=== PATIENT | female | born 1980 | race Caucasian/White ===

== ENCOUNTER 2020-08-16 10:38 | Outpatient (REF) | payer OTHER, SELFPAY ==
[2020-08-16 11:00] LABS: COVID-19 Test Negative (Negative)
== END 2020-08-16 10:39 | disposition home or self-care (01) ==
LOC: HO.EMPCOV 10:38
PROVIDERS: Visit Provider Internal Medicine
DX: Z20.828 Contact with and (suspected) exposure to other viral communicable diseases (principal)
CPT/HCPCS: 87635; C9803

== ENCOUNTER 2020-09-13 09:02 | Outpatient (REF) | payer OTHER, SELFPAY ==
[2020-09-13 09:24] LABS: COVID-19 Test Negative (Negative); IDNOW Serial# 55D5AD1C
== END 2020-09-13 09:03 | disposition home or self-care (01) ==
LOC: HO.EMPCOV 09:02
PROVIDERS: Visit Provider Internal Medicine
DX: Z20.828 Contact with and (suspected) exposure to other viral communicable diseases (principal)
CPT/HCPCS: 36415; 87635; C9803

== ENCOUNTER 2021-03-27 16:04 | Outpatient (REF) | payer OTHER, SELFPAY ==
[2021-03-27 16:39] LABS: Estimated Average Glucose 232 mg/dL; Hemoglobin A1c % 9.7 %
== END 2021-03-27 16:05 | disposition home or self-care (01) ==
LOC: HO.LAB 16:04
PROVIDERS: PCP Pediatrics; Visit Provider Pediatrics
DX: E11.9 Type 2 diabetes mellitus without complications (principal)
CPT/HCPCS: 36415; 83036

== ENCOUNTER 2021-05-30 08:20 | Outpatient (REF) | payer OTHER, SELFPAY ==
--- NOTE | ~2021-05-30 | XR_ITS ---
EXAMINATION: XR KNEE, RIGHT XR KNEE BILATERAL,STANDING CLINICAL INFORMATION: Pain COMPARISON: None TECHNIQUE: Single view of the bilateral standing knees, 2 views of the right knee FINDINGS: No acute visible fracture or dislocation. Narrowing of the lateral patellofemoral compartment. Small periarticular osteophytes along the superior inferior margin of the patella. Mild spurring of the bilateral tibial spines. Joint spaces and alignment are otherwise maintained. No large knee joint effusion. Soft tissues are unremarkable. XR/XR knee standing BI IMPRESSION: 1. No acute visible fracture or dislocation. 2. Mild degenerative changes of the right knee and spurring of the left tibial spine.
--- NOTE | ~2021-05-30 | XR_ITS ---
EXAMINATION: XR KNEE, RIGHT XR KNEE BILATERAL,STANDING CLINICAL INFORMATION: Pain COMPARISON: None TECHNIQUE: Single view of the bilateral standing knees, 2 views of the right knee FINDINGS: No acute visible fracture or dislocation. Narrowing of the lateral patellofemoral compartment. Small periarticular osteophytes along the superior inferior margin of the patella. Mild spurring of the bilateral tibial spines. Joint spaces and alignment are otherwise maintained. No large knee joint effusion. Soft tissues are unremarkable. XR/XR knee RT 2V IMPRESSION: 1. No acute visible fracture or dislocation. 2. Mild degenerative changes of the right knee and spurring of the left tibial spine.
== END 2021-05-30 08:21 | disposition home or self-care (01) ==
LOC: HO.HOSX 08:20
PROVIDERS: Visit Provider Orthopaedic Surgery
DX: M25.561 Pain in right knee (principal)
CPT/HCPCS: 73560; 73565

== ENCOUNTER 2021-07-05 15:00 | Outpatient (RCR) | payer OTHER, SELFPAY ==
--- NOTE | 2021-06-14 16:20 | MHC.PT.EP ---
[facility] [place] Office [place] Office [place] Office [address] Lindy Amezquita [address] [phone] F: [phone] F: [phone] F: [phone] F: [phone] Physical Therapy Plan of Care Date of Evaluation: Date of Surgery: NA Diagnosis: PAIN IN R KNEE Assessment: Pt IS 40 YO F REFERRED TO PT FROM DR KONG WITH R KNEE PAIN OF 5 WK DURATION OF INSIDIOUS ONSET (EXACERBATED WITH FALL ON 06/03). Pt PRESENTS WITH GOOD R KNEE ROM AND LE STRENGTH PER MMT BUT TTP QUAD TENDON WITH SLIGHT LAT TILTED PAT. 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 PAIN WITH PROLONGED SIT AND STAIRS AND THE PAIN SOMETIMES AFFECTS SLEEP. SHOULD BENEFIT FROM PT TO ADDRESS THESE ISSUES. Frequency and Duration: The patient will be seen 2X/WK X 4 WKS Short Term Goals: 1. INCREASED AWARENESS KNEE CARE 2. I TAPING FOR R KNEE 3. IMPROVED SLEEP Medical Technologist Microbiology Goals: 1. DECREASED R KNEE PAIN AT LEAST 50 % WITH ADLS 2. I HEP WITH DC EX PLAN 3. IMPROVED LEFI Treatment Plan: Modalities to reduce pain, spasms and effusion. Manual therapy to restore motion and function. Therapeutic exercise to improve strength and flexibility. Neuromuscular re-education for posture and balance. Therapeutic activities to return to functional activities of daily living. Electronically signed by: SANTOS LLANOS PT Please sign and return to therapist. Thank you for your referral.
--- NOTE | 2021-07-05 15:58 | MHC.PT.DC ---
[facility] [place] Office [place] Office [place] Office [address] Lindy Amezquita [address] [phone] F: [phone] F: [phone] F: [phone] F: [phone] Physical Therapy Discharge Report Diagnosis: PAIN IN R KNEE Date of Surgery: NA Date of Evaluation: 06/14/21 Date of Discharge: Treatments to Date: 6 Cancellations to Date: No Shows to Date: Discharge Status: Discharge Summary: Despite having headache pt feeling good with all exercises reporting no pain and only fatigue. Great carry over with exercises secondary to great compliance with HEP. Min to no cues required for form today. Pt performed all exercises with tape today. Discussed plan to d/c next session and pt in agreement with this plan. Electronically signed by: Please sign and return to therapist. Thank you for your referral.
--- NOTE | 2021-07-05 16:01 | MHC.PT.DC ---
[facility] [place] Office [place] Office [place] Office [address] Lindy Amezquita [address] [phone] F: [phone] F: [phone] F: [phone] F: [phone] Physical Therapy Discharge Report Diagnosis: PAIN IN R KNEE Date of Surgery: NA Date of Evaluation: 06/14/21 Date of Discharge: Treatments to Date: 7 Cancellations to Date: No Shows to Date: Discharge Status: Discharge Summary: Pt has made good improvements since beginning PT. She continues to have some low level residual pain at times however reports she is happy with her progress at this point and feels she is ready to continue with HEP at home. She has met all goals at this point and is independent in taping techniques to assist when she has pain. At this time max benefits of PT have been provided and skilled PT is no longer indicated. Pt is in agreement with d/c today. Electronically signed by: Please sign and return to therapist. Thank you for your referral.
== END 2021-07-05 15:59 | disposition home or self-care (01) ==
LOC: HO.PT 15:00
PROVIDERS: Visit Provider Orthopaedic Surgery
DX: M25.561 Pain in right knee (principal)
CPT/HCPCS: 97110; 97140; 97161; 97530

== ENCOUNTER 2021-08-06 07:59 | Outpatient (REF) | payer OTHER, SELFPAY ==
[2021-08-06 08:11] LABS: MANUAL DIFF FLAG NO
[2021-08-06 08:35] LABS: Basophils Absolute Auto 0.1 X10*3/uL (0.0-0.2); Basophils Percent Auto 1.2 % (0-2); Eosinophils Absolute Auto 0.3 X10*3/uL (0.0-0.4); Eosinophils Percent Auto 3.3 % (0-4); Hematocrit 42.5 % (37.0-47.0); Hemoglobin 13.3 g/dl (12.0-16.0); Imm Gran Abs Auto 0.04 X10*3/uL (0.00-0.03); Imm Gran Pct Auto 0.5 % (0.0-0.4); Lymphocytes Absolute Auto 3.1 X10*3/uL (1.2-4.9); Lymphocytes Percent Auto 34.8 % (20-40); Mean Corpuscular HGB Conc 31.3 g/dl (31.0-35.0); Mean Corpuscular Hemoglobin 27.1 pg (27.0-33.0); Mean Corpuscular Volume 86.6 fL (80.0-98.0); Mean Platelet Volume 9.7 fL (9.4-12.3); Monocytes Absolute Auto 0.7 X10*3/uL (0.1-1.2); Monocytes Percent Auto 8.1 % (2-11); Neutrophils Absolute Auto 4.6 x10*3/uL (2.0-8.3); Neutrophils Percent Auto 52.1 % (45-73); Platelet Count 396 X10*3/uL (160-400); Red Blood Count 4.91 X10*6/uL (4.20-5.50); Red Cell Distribution Width 14.5 % (11.0-16.0); White Blood Count 8.8 X10*3/uL (4.8-10.8)
[2021-08-06 09:08] LABS: Alanine Aminotransferase 17 U/L (0-31); Albumin Level 4.2 g/dL (3.5-5.0); Alkaline Phosphatase 86 U/L (39-117); Anion Gap 14 (12-20); Aspartate Amino Transferase 15 U/L (5-31); Bilirubin Total 0.3 mg/dL (0.0-1.0); Blood Urea Nitrogen 15 mg/dL (9-16); Calcium 9.4 mg/dL (8.4-10.2); Carbon Dioxide 24 mmol/L (22-29); Chloride 105 mmol/L (96-108); Cholesterol 225 mg/dL; Estimated Glomerular Filt Rate > 60; Glucose Random 176 mg/dL (60-115); HDL Cholesterol 36 mg/dL; LDL Cholesterol Calculated 113 mg/dl; Potassium 4.8 mmol/L (3.3-5.1); Sodium 138 mmol/L (135-145); Total Protein 7.1 g/dL (6.5-8.0); Triglycerides 384 mg/dL
[2021-08-06 09:11] LABS: Creatinine Urine 121.13 mg/dL; Microalbum/Creatinine Ratio Ur 6.6 ug/mg cr
[2021-08-06 09:20] LABS: Estimated Average Glucose 203 mg/dL; Hemoglobin A1c % 8.7 %
== END 2021-08-06 08:00 | disposition home or self-care (01) ==
LOC: HO.LAB 07:59
PROVIDERS: PCP Pediatrics; Visit Provider Pediatrics
DX: E11.9 Type 2 diabetes mellitus without complications (principal); E78.2 Mixed hyperlipidemia
CPT/HCPCS: 36415; 80053; 80061; 82043; 83036; 85025

== ENCOUNTER → 2022-04-11 09:05 | Outpatient (BNVA) | payer SELFPAY | PROVIDERS: PCP Pediatrics | DX: Z20.822 Contact with and (suspected) exposure to COVID-19 (principal) | CPT/HCPCS: 87811; C9803 ==

== ENCOUNTER 2022-05-16 07:48 | Outpatient (REF) | payer OTHER, SELFPAY ==
[2022-05-16 09:11] LABS: Estimated Average Glucose 186 mg/dL; Hemoglobin A1c % 8.1 %
[2022-05-16 09:40] LABS: Free T4 (Free Thyroxine) 0.99 ng/dL (0.71-1.85); Thyroid Stimulating Hormone 1.69 uIU/mL (0.32-4.0)
== END 2022-05-16 07:49 | disposition home or self-care (01) ==
LOC: HO.LAB 07:48
PROVIDERS: PCP Pediatrics; Visit Provider Pediatrics
DX: E11.9 Type 2 diabetes mellitus without complications (principal)
CPT/HCPCS: 36415; 83036; 84439; 84443

== ENCOUNTER 2022-07-15 14:03 | Outpatient (REF) | payer OTHER, SELFPAY ==
--- NOTE | ~2022-07-15 | MM_ITS ---
EXAMINATION: MM SCREENING DIGITAL BREAST TOMOSYNTHESIS, BILATERAL CLINICAL INFORMATION: Screening. Asymptomatic. COMPARISON: Mammography: None TECHNIQUE: Digital breast tomosynthesis is performed in both the craniocaudal and mediolateral oblique views along with computer-aided detection (CAD). Synthesized 2D images are generated from the tomosynthesis. FINDINGS: There are scattered areas of fibroglandular density (ACR BI-RADS breast composition Category b). There are no significant masses, abnormal calcifications, or other abnormalities. MM/MM tomosynthesis screening BI IMPRESSION: No mammographic evidence of malignancy. ASSESSMENT: BI-RADS 1: Negative RECOMMENDATION: Routine annual mammography screening. This patient's information was entered into a reminder system with a target due date for their next mammogram.
== END 2022-07-15 14:04 | disposition home or self-care (01) ==
LOC: HO.MAMMO 14:03
PROVIDERS: PCP Pediatrics; Visit Provider Pediatrics
DX: Z12.31 Encounter for screening mammogram for malignant neoplasm of breast (principal)
CPT/HCPCS: 77063; 77067

== ENCOUNTER 2023-02-05 08:01 | Emergency (ER) | payer OTHER, SELFPAY ==
--- NOTE | ~2023-02-05 | US_ITS ---
EXAMINATION: RIGHT LOWER EXTREMITY DEEP VENOUS ULTRASOUND CLINICAL INFORMATION: Right calf pain. COMPARISON: None. TECHNIQUE: Duplex Doppler imaging with compression maneuvers were performed of the right lower extremity deep venous system. FINDINGS: The visualized common femoral, femoral and popliteal veins demonstrate normal compressibility and color flow without evidence of venous thrombosis. Visualized portions of the calf veins demonstrate normal color fill-in suggesting patency. There is no evidence of a Taylor's cyst. Indicated area of pain corresponds with heterogeneous appearing portion of the gastrocnemius muscle with some adjacent minimal free fluid, nonspecific. US/US venous duplex LE RT IMPRESSION: -No evidence of deep venous thrombosis involving the right lower extremity. -Cannot exclude injury of the gastrocnemius muscle. This can be further evaluated with MRI imaging if clinically indicated.
[2023-02-05 08:12] VITALS: BP 147/88; PULSE 91; RESP 19; TEMP 36.9; O2SAT 100; BMI 32.5
[2023-02-05 10:38] VITALS: BP 146/89; PULSE 91; RESP 16; TEMP 36.6; O2SAT 99
--- NOTE | 2023-02-05 11:23 | ED.EXTPRO ---
HPI - Extremity Problem General Chief complaint: Extremity Problem Stated complaint: r leg parviz horse pain Time Seen by Provider: 02/05/23 09:19 History of Present Illness HPI Narrative: Patient complains of right calf pain which developed this morning, she did not feel any abrupt pop or injury but she did run this morning Denies any fever chills, no chest pain no shortness of breath no pain with a deep breath, no other extremity pains Related Data Previous Rx's Medication Instructions Recorded cyclobenzaprine 5 mg tablet 5 mg PO TID muscle spasm #10 tabs 02/05/23 ibuprofen 600 mg tablet 600 mg PO Q6H PRN pain #20 tabs 02/05/23 Allergies Allergy/AdvReac Type Severity Reaction Status Date / Time No Known Allergies Allergy Verified 02/05/23 08:16 [No Known Allergies*] [facility] Past Medical History Source: nursing notes reviewed Social History Social History Advance Directives: No Physical Exam Vital Signs: Vital Signs: Last Vital Signs Temp 97.9 F 02/05/23 10:38 Pulse 91 02/05/23 10:38 Resp 16 02/05/23 10:38 BP 146/89 H 02/05/23 10:38 Pulse Ox 99 02/05/23 10:38 O2 Del Method Room Air 02/05/23 10:38 BMI result Body Mass Index 32.5 General appearance no acute distress Head is normocephalic atraumatic Neck is supple Chest clear to auscultation bilateral with full symmetric breath sounds Heart no murmur No pleuritic pain with deep breath Abdomen soft nontender Extremities for range of motion x4 Right leg exam the leg is normal in appearance no redness no swelling no wounds but there is tenderness in the right calf area, otherwise neurovascular intact and normal appearance Skin no rash Neuro no focal motor sensory deficits Course Course Course Narrative: Ultrasound of the right leg was negative and patient ambulates easily and was discharged and advised to follow with her doctor for decision about whether not to repeat an ultrasound if pain continues It is likely this is a strained muscle from running although she did not feel a pop and she is advised to follow with orthopedist as well as pain is likely a muscle strain Discharge Plan Discharge Clinical Impression: Leg pain, right Patient Disposition: Home, Self-Care Additional Instructions: This is likely to be a muscle strain of the right leg as it began after running this morning, it is not likely to be a cramp Ultrasound did not show any blood clot Follow with primary doctor or orthopedist if needed Return any time any worse condition or concerns Prescriptions: New ibuprofen 600 mg tablet 600 mg PO Q6H PRN (Reason: pain) Qty: 20 0RF cyclobenzaprine 5 mg tablet 5 mg PO TID Qty: 10 0RF Referrals: Shun Ramos MD [Physician] - Stand Alone Forms: Work/School Release Interventions: ED Discharge Assessment Last Done: 02/05/23 11:39 Discharge Date/Time: 02/05/23 11:40
== END 2023-02-05 11:40 | disposition home or self-care (01) ==
PROVIDERS: Emergency Provider Emergency Medicine Emergency Medical Services; PCP Pediatrics
DX: M79.604 Pain in right leg (principal); R60.0 Localized edema
CPT/HCPCS: 93971; 99282; 99284

== ENCOUNTER → 2023-03-11 13:02 | Outpatient (BNVA) | payer OTHER, SELFPAY | PROVIDERS: Visit Provider Orthopaedic Surgery ==

== ENCOUNTER 2023-04-02 08:14 | Day surgery (SDC) | payer OTHER, SELFPAY ==
--- NOTE | 2023-04-02 07:52 | W.PM.OPN ---
Operative Note Operative Note Date of Service: 04/02/23 Narrative: Operative Note Preop diagnosis: 1. left thumb Trigger finger Postop diagnosis: 1. left thumb Trigger finger Procedure: 1. left thumb A1 yoselin release Surgeon: Samantha Slater MD Anesthesia: local block using 1% lidocaine with epinephrine Findings: No locking or catching after A1 yoselin release EBL: Less than 5 mL Tourniquet time: None Specimens: None Complications: None Disposition: Brought to recovery room in stable condition Plan: Follow-up for 10-14 days for wound check and suture removal Indications: The patient is 42 years old, with a left thumb trigger finger that has been unresponsive to nonoperative management. The risks and benefits of operative treatment including but not limited to risk of damage to blood vessels, nerves, tendons, infection, persistent pain, persistent symptoms, recurrence or possible need for additional surgery were discussed with the patient and the patient wishes to proceed with surgery. Procedure: Once consent was obtained a local block was performed in the preop area using a combination of 1% lidocaine with epinephrine. The patient was then brought back to the operating suite and placed on the operative table in supine position. The left upper extremity was prepped and draped in a standard surgical fashion. Once assured that we had a good block, a 1.5 cm oblique incision was made centered over the A1 yoselin of the left thumb . The incision was made through the skin to the subcutaneous tissues using a #15 blade. Careful dissection was made down to the level of the A1 yoselin using tenotomy scissors, with care being taken to protect the nearby neurovascular structures. A longitudinal incision was made in the A1 yoselin 1st using a #15 blade, then using tenotomy scissors under direct visualization. The A1 yoselin was noted to be thickened. Following our A1 yoselin release, we no longer saw any locking or catching of the digit with flexion and extension. Once satisfied with our A1 yoselin release the wound was copiously irrigated with normal saline and hemostasis was obtained with a brief period of local pressure. The skin edges were reapproximated with some 5.0 nylon suture material and a sterile dressing was applied. The patient appears to have tolerated the procedure well and with no complications. All digits were well vascularized at the conclusion of the case.
[2023-04-02 08:31] VITALS: BMI 32.5
--- NOTE | 2023-04-02 10:06 | MHC.SHP ---
Pre-Procedural Eval Section A Date of Service: 04/02/23 The patient is an INPATIENT: No Changes since office visit: No Cold of Flu in the past 2 weeks, No New Medical Problems, No Changes in Medication and No Patient answered all questions The History & Physical has been completed within 30 days and I have reviewed it.: No Section B Chief Complaint: Trigger thumb, left thumb Allergies: Allergies Allergy/AdvReac Type Severity Reaction Status Date / Time No Known Allergies Allergy Verified 03/11/23 16:35 [No Known Allergies*] Plan I have reviewed the history and physical and performed a pertinent physical examination on my patient. No changes have occurred unless specified. Time Spent With Patient Time: Total time managing care of this patient today ____ minutes.
[2023-04-02 10:36] VITALS: BP 149/86; PULSE 89; RESP 16; O2SAT 98
== END 2023-04-02 10:47 | disposition home or self-care (01) ==
PROVIDERS: PCP Pediatrics; Visit Provider Orthopaedic Surgery
PROC: (CPT 26055; principal; 2023-04-02 09:30)
DX: M65.312 Trigger thumb, left thumb (principal); E11.9 Type 2 diabetes mellitus without complications
CPT/HCPCS: 26055; J0171; J2795

== ENCOUNTER → 2023-04-02 08:14 | Outpatient (BNV) | payer OTHER, SELFPAY | PROVIDERS: PCP Pediatrics; Visit Provider Orthopaedic Surgery | DX: M65.312 Trigger thumb, left thumb (principal) | CPT/HCPCS: 26055 ==

== ENCOUNTER 2023-04-15 13:11 | Outpatient (AMB) | payer OTHER, SELFPAY ==
--- NOTE | 2023-04-15 13:18 | A.OFFVIS_ITS ---
Intake Vital Signs 04/15/23 13:24 Height 5 ft 9 in Weight 220 lb BMI 32.5 Intake Visit Reasons: PO LT Trigger Thumb Release 04/02/23AR Intake Note: Michelle kingsley 42 year old female presents today for a post operative left thumb trigger release on 04/02/23 AR. Patient reports she is doing well, denies any pain. She states ready to have stitches removed. Allergies No Known Allergies [No Known Allergies*] Allergy (Verified 04/15/23 13:24) HPI PO LT Trigger Thumb Release 04/02/23AR HPI Details 42-year-old female who returns to the office today for post-op left trigger thumb release, 04/02/[address] Slater. She states she has no pain and is doing well overall. She has no concerns today. [facility] Medical History Asthma Diabetes Social History Current occupational status: employed [place] [employer] [place] Review of Systems Const All systems reviewed & are unremarkable except as noted in HPI and below Physical Exam Vital Signs: BMI result Body Mass Index 32.5 Extrem Other: Left thumb: Incision clean, dry and intact. Sutures intact. She has no catching or locking. She can fully flex and extend the digits. NVI. Assessment & Plan Assessment & Plan (1) Trigger thumb, left thumb: Code(s): M65.312 - Trigger thumb, left thumb Plan Sutures removed today, steri strips applied. She will increase activity as tolerated. I did encourage her to use caution with any type of heavy lifting for the next 2 weeks until she is fully healed. She will see us back if symptoms arise, otherwise follow-up as needed. Patient Instructions: Scribed for Petar Blackmon PA-C, by Mariano Dorsey emergency medical services coordinator, on 04/15/2023 at 1:45 PM EST. I, Petar Blackmon PA-C, have personally reviewed and agree with the information entered by the scribe. Coding Level of Care Code Global (54032) Diagnoses Trigger thumb, left thumb M65.312
[2023-04-15 13:24] VITALS: BMI 32.5
== END 2023-04-15 13:40 | disposition home or self-care (01) ==
PROVIDERS: PCP Pediatrics; Visit Provider Physician Assistant
DX: M65.312 Trigger thumb, left thumb (principal)
CPT/HCPCS: 99024

== ENCOUNTER → 2023-04-15 13:11 | Outpatient (BNVA) | payer OTHER, SELFPAY | PROVIDERS: PCP Pediatrics; Visit Provider Physician Assistant ==

== ENCOUNTER 2023-05-13 11:42 | Emergency (ER) | payer OTHER, SELFPAY ==
[2023-05-13] VITALS (14 sets, daily range): BP systolic 104–185; BP diastolic 45–97; PULSE 79–101; RESP 15–20; TEMP 36.4–37.2; O2SAT 96–100; BMI 33.8
--- NOTE | ~2023-05-13 | CT_ITS ---
EXAMINATION: CT ANGIOGRAM OF THE CHEST WITH AND WITHOUT CONTRAST (CT PULMONARY ANGIOGRAM FOR PE) CLINICAL INFORMATION: Reason for Exam chest pain radiating to the back COMPARISON: None available. TECHNIQUE: Prior to contrast administration, noncontrast localization images were obtained. Subsequently, multidetector volumetric imaging was performed from the thoracic inlet to below the diaphragms following the administration of 80 mL Omnipaque 350 intravenous contrast. No contrast reaction reported Sagittal, coronal, and MIP oblique sagittal reformatted images were obtained on the CT workstation, uploaded to PACS, and reviewed. This CT examination was performed using dose optimization techniques as appropriate, variously including the following: *Automated exposure control *Adjustment of mA and/or kV according to patient size (this includes techniques or standardized protocols for targeted exams where dose is matched to indication/reason for exam; i.e. extremities or head) *Use of iterative reconstruction technique Total exam dose-length product 359 mGy-cm FINDINGS: QUALITY OF STUDY/CONTRAST BOLUS: Satisfactory. PULMONARY ARTERIES: No pulmonary emboli. THORACIC AORTA: No aneurysm. LUNG: No focal consolidation, nodules or masses. PLEURA: No pleural effusion or pneumothorax. MEDIASTINUM: Normal heart size. No pericardial effusion. No hilar or mediastinal lymphadenopathy. No evidence of septal bowing or right heart strain. CORONARY ARTERY CALCIFICATION: None visualized on this study. CHEST WALL/AXILLA: No axillary or internal mammary lymphadenopathy. OSSEOUS STRUCTURES: No acute or suspicious osseous abnormality. UPPER ABDOMEN: Visualized liver, spleen, pancreas and bilateral adrenal glands are unremarkable. No reflux of contrast into the hepatic veins to suggest elevated right heart pressures. CT/CT angio chest PE protocol IMPRESSION: 1. No evidence of PE. 2. No evidence of aortic dissection. 3. The lungs are clear. VTE: negative.
--- NOTE | ~2023-05-13 | XR_ITS ---
EXAMINATION: XR CHEST CLINICAL INFORMATION: Chest pain COMPARISON: Chest radiograph from 08/19/2017 TECHNIQUE: 2 views of the chest were obtained. FINDINGS: Stable elevation of the right hemidiaphragm. No focal consolidation. No pneumothorax. Trachea is midline. Cardiomediastinal silhouette is not enlarged. No large pleural effusion. Degenerative changes of the thoracolumbar spine. Soft tissues are unremarkable. XR/XR chest 2V IMPRESSION: No acute cardiopulmonary process.
--- NOTE | 2023-05-13 13:02 | ED.CHESTPAIN ---
HPI - Chest Pain General Chief Complaint: Chest Pain Stated Complaint: sent from urgent care / chest discomfort Time Seen by Provider: 05/13/23 13:28 Source: patient Mode of arrival: ambulatory Limitations: no limitations History of Present Illness HPI narrative: 42-year-old female with history of diabetes on insulin, obesity, borderline hyperlipidemia not on medications who presents to the ER for evaluation of chest tightness that occurred yesterday. Patient states after she ate lunch she had some significant chest tightness for a few hours after she ate. It did not radiate. It self-resolved. She states overnight last night she had some ongoing mild back discomfort. She denies any significant pain. She went to urgent care today who encouraged her to come to the ER for evaluation. EKG there did not show any significant abnormalities per documentation. Patient denies any ongoing chest pain this morning. She had very mild back discomfort, now resolved. No associated shortness of breath, diaphoresis, nausea, vomiting, abdominal pain. MD complaint: chest discomfort and other ( Back discomfort) Onset (ago): day(s) (1) Timing of current episode: now resolved Prior episodes: No Onset: after eating Pain location: substernal Pain radiation: none Severity: moderate Quality: tightness Exacerbating factors: nothing Risk Factors Coronary artery disease risk factors: diabetes and hyperlipidemia Thoracic aortic dissection risk factors: none Related Data Home Medications Medication Instructions Recorded Confirmed biotin 10 mg tablet 10 mg PO DAILY 05/13/23 05/13/23 empagliflozin 25 mg tablet 25 mg PO DAILY 05/13/23 05/13/23 (Jardiance) insulin glargine-yfgn 100 unit/mL 32 unit subcut BEDTIME 05/13/23 05/13/23 (3 mL) subcutaneous pen (Semglee (insulin glargine-yfgn) Pen) metformin 1,000 mg tablet 500 mg PO BEDTIME 05/13/23 05/13/23 multivitamin 1 tab PO DAILY 05/13/23 05/13/23 tirzepatide 10 mg/0.5 mL 10 mg subcut TH 05/13/23 05/13/23 subcutaneous pen injector Allergies Allergy/AdvReac Type Severity Reaction Status Date / Time No Known Allergies Allergy Verified 05/13/23 13:02 [No Known Allergies*] Review of Systems Review of Systems: Yes all other systems are reviewed and are negative [facility] Past Medical History Medical History Asthma Diabetes Social History Social History Alcohol intake: never Smoked in Last 30 Days: No Use of substances other than those prescribed or required for medical reasons: No Advance Directives: No Advance Directives Information Provided: No Current occupational status: employed 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 Oriented X3. No acute distress. Anxious and tearful Head: normocephalic, atraumatic. Eyes: Pupils equal, round and reactive to light. ENT: Pharynx normal. No tonsillar swelling or exudate. Neck: Normal inspection. Neck supple. CVS: Normal heart rate and rhythm. Pulses normal, femoral pulses equal. Respiratory: No respiratory distress. Breath sounds normal. Abdomen: Obese, Soft and nontender. +BS x4 Skin: Skin warm and dry. Normal skin color. Normal skin turgor. No rashes. Extremities: No lower extremity edema. No joint swelling. Neuro/psych: Oriented X 3. No motor deficit. No sensory deficit. CN II-XII intact. Normal speech and cognition. Course Course Course Narrative: This is a rapid medical exam. Deferred additional HPI, ROS, PE to primary provider. 42 yo female with history of DM, PCOS here with back pain (between shoulder blades) since last evening after eating (caprese sandwich). Went to and referred for cardiac w/u. Had chest pressure yesterday. None today. No vomiting, abdominal pain. TUMS did help. Will obtain labs, EKG, CXR. VSS Reevaluation(s) Reevaluation #1: CT angio was negative for PE or dissection. Patient remains symptoms free at this time. Echo Reviewed. They were wall motion abnormalities with EF 40%. Case dicussed with cardiology recommending transfer to [facility] for cardiac catheterization. Patient updated on plan of care and all questions were answered. Time: 18:42 Medications Administered Generic Name Dose Route Start Last Admin Trade Name Frelove PRN Reason Stop Dose Admin Heparin Sodium/Sodium Chloride 25,000 unit in 250 mls @ 0 mls/hr 05/13/23 14:30 05/13/23 15:19 Heparin Sodium,Porcine/1/2ns IVCONT 14 units/kg/hr .Q0M NICOLE 14.52 mls/hr Administration Protocol Per Protocol Discontinued Medications Generic Name Dose Route Start Last Admin Trade Name Freq PRN Reason Stop Dose Admin Aspirin 325 mg 05/13/23 14:00 05/13/23 14:09 Aspirin 325 Mg Tablet PO 05/13/23 14:01 325 mg ONCE ONE Administration Atorvastatin Calcium 80 mg 05/13/23 14:08 05/13/23 14:14 Atorvastatin Calcium 80 Mg Tablet PO 05/13/23 14:09 80 mg ONCE ONE Administration Heparin Sodium (Porcine) 4,000 unit 05/13/23 15:12 05/13/23 15:36 Heparin Sodium,Porcine 5,000 Unit/Ml Vial IVPUSH 05/13/23 15:13 4,000 unit ONCE ONE Administration Iohexol 100 ml 05/13/23 17:25 05/13/23 17:25 Iohexol 350 Mg/Ml 100 Ml Infus..Btl IV 05/13/23 17:26 65 ml ONCE ONE Administration Lorazepam 0.5 mg 05/13/23 14:35 05/13/23 15:40 Lorazepam 0.5 Mg Tablet PO 05/13/23 14:36 Not Given ONCE ONE Metoprolol Tartrate 12.5 mg 05/13/23 14:55 05/13/23 15:41 Metoprolol Tartrate 12.5 Mg Halftab PO 05/13/23 14:56 12.5 mg ONCE ONE Administration Protocol Nitroglycerin 0.4 mg 05/13/23 14:22 05/13/23 14:36 Nitroglycerin 0.4 Mg Tab.Subl SUBLINGUAL 05/13/23 14:23 0.4 mg ONCE ONE Administration Medical Decision Making Medical Decision Making MDM Narrative: 42-year-old female with history of diabetes and obesity presents to the ER for evaluation of substernal nonradiating chest tightness that occurred yesterday after eating. She states it was significant at the time and self resolved. She had some back discomfort as well. Urgent care today referred her to the ER for further evaluation. Patient found to be hypertensive 160-170 systolic which is new for her. She is visibly anxious. she has no current chest pain or back pain. Low suspicion for aortic dissection at this time. EKG has isolated T-wave inversion in lead 3 only. No evidence of ST elevation. Lab workup today shows a significantly elevated troponin of 750. Cardiology was contacted who is recommending heparinization, aspirin, statin, nitro, admit here for trending of troponin and medical management. No need for emergent cardiac catheterization today. Patient updated on plan of care. Hospitalist tired texted for admission Differential Diagnosis Differential Diagnoses: The differential diagnosis associated with the presentation includes ACS, PE, doubt dissection given no active pain and back pain was very mild, GERD, gastritis, doubt perforated gastric ulcer given benign abd exam Admission/Observation Consideration of admission/observation: Escalation of care including admission/observation considered NSTEMI requiring Transfer to tertiary care facility for cardiac catheterization Consult Healthcare Provider Management of the patient was discussed with: Hospitalist and Flight Hostess Dr. Rausch recommending heparin, trending trop, nitro, - recommend CTA given reports of back pain and HTN which was negative. ECHO with wall motion abnormalities. Recommending transfer to [facility] for cardiac catheterization Lab Data MDM Lab Attestation statement: I reviewed the patient's lab results. Mild thrombocytosis, mild hyperglycemia, significant troponin elevation of 750 consistent with cardiac ischemia 05/13/23 13:18 05/13/23 13:18 Labs: Lab Results 05/13/23 05/13/23 05/13/23 Range/Units 13:18 13:18 13:18 WBC 9.3 (4.8-10.8) X10*3/uL RBC 4.88 (4.20-5.50) X10*6/uL Hgb 12.3 (12.0-16.0) g/dl Hct 40.5 (37.0-47.0) % MCV 83.0 (80.0-98.0) fL MCH 25.2 L (27.0-33.0) pg MCHC 30.4 L (31.0-35.0) g/dl RDW 15.2 (11.0-16.0) % Plt Count 410 H (160-400) X10*3/uL MPV 9.2 L (9.4-12.3) fL Immature Gran % (Auto) 0.3 (0.0-0.4) % Neut % (Auto) 54.4 (45-73) % Lymph % (Auto) 33.0 (20-40) % [place] % (Auto) 10.0 (2-11) % Eos % (Auto) 1.7 (0-4) % Baso % (Auto) 0.6 (0-2) % Lymph # (Auto) 3.1 (1.2-4.9) X10*3/uL [place] # (Auto) 0.9 (0.1-1.2) X10*3/uL Eos # (Auto) 0.2 (0.0-0.4) X10*3/uL Baso # (Auto) 0.1 (0.0-0.2) X10*3/uL Abs Immat Gran (auto) 0.03 (0.00-0.03) X10*3/uL Absolute Neuts (auto) 5.1 (2.0-8.3) x10*3/uL Absolute Nucleated RBC 0.000 (0.0-0.012) X10*3/uL Nucleated RBC % (auto) 0.0 (0.0-0.2) /100WBC PT 11.1 (11.1-13.3) SEC INR 0.9 (0.9-1.1) APTT 30.3 (26.0-36.4) SEC Sodium 141 (135-145) mmol/L Potassium 4.1 (3.3-5.1) mmol/L Chloride 108 (96-108) mmol/L Carbon Dioxide 24 (22-29) mmol/L Anion Gap 13 (12-20) BUN 10 (9-16) mg/dL Creatinine 0.86 (0.5-1.4) mg/dL Estim Creat Clear Calc 108.1 Estimated GFR > 60 Random Glucose 149 H (60-115) mg/dL Calcium 10.4 H D (8.4-10.2) mg/dL Magnesium 1.9 (1.6-2.6) mg/dL Total Bilirubin 0.2 (0.0-1.0) mg/dL Direct Bilirubin < 0.2 (0.0-0.5) mg/dL AST 22 (5-31) U/L ALT 20 (0-31) U/L Alkaline Phosphatase 79 (39-117) U/L Troponin I High Sens (<3.5-17.0) ng/L Total Protein 7.6 (6.5-8.0) g/dL Albumin 4.2 (3.5-5.0) g/dL COVID-19 (GABRIELA) (Negative) COVID-19 Clin Com 05/13/23 05/13/23 05/13/23 Range/Units 13:18 16:54 16:54 WBC (4.8-10.8) X10*3/uL RBC (4.20-5.50) X10*6/uL Hgb (12.0-16.0) g/dl Hct (37.0-47.0) % MCV (80.0-98.0) fL MCH (27.0-33.0) pg MCHC (31.0-35.0) g/dl RDW (11.0-16.0) % Plt Count (160-400) X10*3/uL MPV (9.4-12.3) fL Immature Gran % (Auto) (0.0-0.4) % Neut % (Auto) (45-73) % Lymph % (Auto) (20-40) % [place] % (Auto) (2-11) % Eos % (Auto) (0-4) % Baso % (Auto) (0-2) % Lymph # (Auto) (1.2-4.9) X10*3/uL [place] # (Auto) (0.1-1.2) X10*3/uL Eos # (Auto) (0.0-0.4) X10*3/uL Baso # (Auto) (0.0-0.2) X10*3/uL Abs Immat Gran (auto) (0.00-0.03) X10*3/uL Absolute Neuts (auto) (2.0-8.3) x10*3/uL Absolute Nucleated RBC (0.0-0.012) X10*3/uL Nucleated RBC % (auto) (0.0-0.2) /100WBC PT (11.1-13.3) SEC INR (0.9-1.1) APTT (26.0-36.4) SEC Sodium (135-145) mmol/L Potassium (3.3-5.1) mmol/L Chloride (96-108) mmol/L Carbon Dioxide (22-29) mmol/L Anion Gap (12-20) BUN (9-16) mg/dL Creatinine (0.5-1.4) mg/dL Estim Creat Clear Calc Estimated GFR Random Glucose (60-115) mg/dL Calcium (8.4-10.2) mg/dL Magnesium (1.6-2.6) mg/dL Total Bilirubin (0.0-1.0) mg/dL Direct Bilirubin (0.0-0.5) mg/dL AST (5-31) U/L ALT (0-31) U/L Alkaline Phosphatase (39-117) U/L Troponin I High Sens 754.1 H* 864.8 H* (<3.5-17.0) ng/L Total Protein (6.5-8.0) g/dL Albumin (3.5-5.0) g/dL COVID-19 (GABRIELA) Negative (Negative) COVID-19 Clin Com See Note Independent Interpretation I performed an independent interpretation of an: EKG, Plain X-Ray and CT Scan Interpretation: EKG with normal sinus rhythm, ventricular rate 91 beats per minute, normal MT interval, normal QTC, T-wave inversion in lead [address] segment elevations or depressions. Chest x-ray with clear lungs, no evidence of acute infiltrate or pneumothorax no mediastinal widening CTA without large vessel PE, no dissection apprecatiated. Radiology Impression Discussion of test interpretation with radiology: I have reviewed the radiologist's reading. Radiologist Impression: EXAMINATION: XR CHEST CLINICAL INFORMATION: Chest pain COMPARISON: Chest radiograph from 08/19/2017 TECHNIQUE: 2 views of the chest were obtained. FINDINGS: Stable elevation of the right hemidiaphragm. No focal consolidation. No pneumothorax. Trachea is midline. Cardiomediastinal silhouette is not enlarged. No large pleural effusion. Degenerative changes of the thoracolumbar spine. Soft tissues are unremarkable. XR/XR chest 2V IMPRESSION: No acute cardiopulmonary process. EXAMINATION: CT ANGIOGRAM OF THE CHEST WITH AND WITHOUT CONTRAST (CT PULMONARY ANGIOGRAM FOR PE) CLINICAL INFORMATION: Reason for Exam chest pain radiating to the back COMPARISON: None available.? ? TECHNIQUE: Prior to contrast administration, noncontrast localization images were obtained. ? Subsequently, multidetector volumetric imaging was performed from the thoracic inlet to below the diaphragms following the administration of 80 mL Omnipaque 350 intravenous contrast. No contrast reaction reported Sagittal, coronal, and MIP oblique sagittal reformatted images were obtained on the CT workstation, uploaded to PACS, and reviewed. This CT examination was performed using dose optimization techniques as appropriate, variously including the following: *Automated exposure control *Adjustment of mA and/or kV according to patient size (this includes techniques or standardized protocols for targeted exams where dose is matched to indication/reason for exam; i.e. extremities or head) *Use of iterative reconstruction technique Total exam dose-length product 359 mGy-cm FINDINGS: QUALITY OF STUDY/CONTRAST BOLUS: Satisfactory. PULMONARY ARTERIES: No pulmonary emboli.? THORACIC AORTA: No aneurysm. LUNG: No focal consolidation, nodules or masses. PLEURA: No pleural effusion or pneumothorax. MEDIASTINUM: Normal heart size.? No pericardial effusion.? No hilar or mediastinal lymphadenopathy.? No evidence of septal bowing or right heart strain. CORONARY ARTERY CALCIFICATION: None visualized on this study. CHEST WALL/AXILLA: No axillary or internal mammary lymphadenopathy. OSSEOUS STRUCTURES: No acute or suspicious osseous abnormality.? UPPER ABDOMEN: Visualized liver, spleen, pancreas and bilateral adrenal glands are unremarkable.? No reflux of contrast into the hepatic veins to suggest elevated right heart pressures. CT/CT angio chest PE protocol IMPRESSION: 1.? No evidence of PE. 2.? No evidence of aortic dissection. 3.? The lungs are clear. VTE: negative. ? Transthoracic Echocardiogram Patient (Last, First, Middle): Michelle Mensah, Gender:? Female Patient ID:? ? ? [id number] Date of : ? 1980 Age: ? 42 Procedure Date:? 05/13/2023 Procedure Type:? Transthoracic Echocardiogram Location:? ER Height:? 175.26 cm? Weight: ? 102.06 kg BSA: ? 2.17 m2? Heart Rate:? ? ? bpm BP:? 131 / 83 mmHg General Office Assistant: ? ? VH Referring MD:? ? Qasim Rausch MD Wood Window And Door Craftsman:? ? Qasim Rausch MD Symptoms:? NSTEMI Study Quality: ? Fair w Contrast ECG Rhythm:? ? ? Sinus ?? ? Conclusions: - 1. [id number] LV systolic dysfunction with regional wall motion abnormality suggestive ischemic cardiomyopathy? 2. Normal cardiac valvular Dopplers? 3. Normal RV systolic pressure ? 4. No gross pericardial effusion ? Findings Procedure Information Contrast agent, definity, is being given per protocol without apparent complications. Left Ventricle The left ventricular systolic function is mild to moderately decreased.? The visually estimated ejection fraction is between 40-45%.? Spectral Doppler is indicative of a normal filling pattern. Wall Motion Rest Echo Findings The inferoseptal wall, the apical inferior, and mid inferior segments are hypokinetic. The basal inferior and apical septum segments are akinetic. All other scored wall segments showed normal motion. Right Ventricle Normal right ventricular cavity size and systolic function. Atria The left atrium is normal in size.? Interatrial shunt cannot be excluded. Aortic Valve The aortic valve structure and function is likely normal.? There is no aortic valve stenosis.? There is no aortic valve regurgitation. Mitral Valve Likely normal mitral valve structure and function.? There is trace mitral valve regurgitation.? There is no mitral valve stenosis. Pulmonic Valve The pulmonic valve was not well visualized. Tricuspid Valve Likely normal tricuspid valve structure and function.? There is trace tricuspid valve regurgitation.? The right ventricular systolic pressure is normal.? The right ventricular systolic pressure is 19 mmHg.? Normal right atrial pressure.? There is no evidence of pulmonary hypertension. Great Vessels All visible segments of the aorta are normal in size.? The pulmonary artery was not well visualized. Venous The inferior vena cava is normal in size and collapses greater than 50% with inspiration. Pericardium/Pleural There is no evidence of pericardial effusion. External Record Review External record reviewed: Prior outpatient radiology Prescription Management I considered prescription management with: Pain Medication and Other ( heparin, beta-hazel, aspirin, statin) Chronic Conditions Patient?s care impacted by: Diabetes and Other ( obesity) Critical Care Time Critical Care Time Critical Care Time: Yes Total Critical Care Time: 48 Attestation: I have personally provided critical care time exclusive of time spent on separately billable procedures. Time includes review of lab data, radiology results, discussion with consultants, and monitoring for potential decompensation. Intervention performed as documented. Discharge Plan Discharge Clinical Impression: Non-ST elevation AL (NSTEMI) Patient Disposition: [facility] Transfer Details: [facility] for cardiac catheterization Prescriptions: No Action metformin 1,000 mg tablet 500 mg PO BEDTIME Jardiance 25 mg tablet 25 mg PO DAILY insulin glargine-yfgn [Semglee(insulin glarg-yfgn)Pen] 100 unit/mL (3 mL) insulin pen 32 unit subcut BEDTIME multivitamin Tablet 1 tab PO DAILY biotin 10 mg Tablet 10 mg PO DAILY tirzepatide 10 mg/0.5 mL Pen Injector 10 mg SUBCUT TH
--- NOTE | 2023-05-13 13:04 | ECG_ITS ---
Test Reason : chest pain Blood Pressure : / mmHG Vent. Rate : 091 BPM Atrial Rate : 091 BPM P-R Int : 130 ms QRS Dur : 104 ms QT Int : 368 ms P-R-T Axes : 047 -16 000 degrees QTc Int : 452 ms Normal sinus rhythm Minimal voltage criteria for LVH, may be normal variant ( Sneads product ) Borderline ECG No previous ECGs available Referred By: Karolina Manzanares Electronically Signed By:JUDY ALCARAZ
[2023-05-13 13:23] LABS: MANUAL DIFF FLAG NO
[2023-05-13 13:30] LABS: Basophils Absolute Auto 0.1 X10*3/uL (0.0-0.2); Basophils Percent Auto 0.6 % (0-2); Eosinophils Absolute Auto 0.2 X10*3/uL (0.0-0.4); Eosinophils Percent Auto 1.7 % (0-4); Hematocrit 40.5 % (37.0-47.0); Hemoglobin 12.3 g/dl (12.0-16.0); Imm Gran Abs Auto 0.03 X10*3/uL (0.00-0.03); Imm Gran Pct Auto 0.3 % (0.0-0.4); Lymphocytes Absolute Auto 3.1 X10*3/uL (1.2-4.9); Mean Corpuscular HGB Conc 30.4 g/dl (31.0-35.0); Mean Corpuscular Hemoglobin 25.2 pg (27.0-33.0); Mean Platelet Volume 9.2 fL (9.4-12.3); Monocytes Absolute Auto 0.9 X10*3/uL (0.1-1.2); Neutrophils Absolute Auto 5.1 x10*3/uL (2.0-8.3); Neutrophils Percent Auto 54.4 % (45-73); Platelet Count 410 X10*3/uL (160-400); Red Blood Count 4.88 X10*6/uL (4.20-5.50); Red Cell Distribution Width 15.2 % (11.0-16.0); White Blood Count 9.3 X10*3/uL (4.8-10.8)
[2023-05-13 13:33] LABS: INTERNATIONAL NORM RATIO 0.9 (0.9-1.1); Prothrombin Time 11.1 SEC (11.1-13.3)
[2023-05-13 13:39] LABS: Alanine Aminotransferase 20 U/L (0-31); Albumin Level 4.2 g/dL (3.5-5.0); Alkaline Phosphatase 79 U/L (39-117); Anion Gap 13 (12-20); Aspartate Amino Transferase 22 U/L (5-31); Bilirubin Direct < 0.2 mg/dL (0.0-0.5); Bilirubin Total 0.2 mg/dL (0.0-1.0); Blood Urea Nitrogen 10 mg/dL (9-16); Calcium 10.4 mg/dL (8.4-10.2); Carbon Dioxide 24 mmol/L (22-29); Chloride 108 mmol/L (96-108); Creatinine Clr Calc Pharmacy 108.1; Estimated Glomerular Filt Rate > 60; Glucose Random 149 mg/dL (60-115); Magnesium 1.9 mg/dL (1.6-2.6); Potassium 4.1 mmol/L (3.3-5.1); Sodium 141 mmol/L (135-145); Total Protein 7.6 g/dL (6.5-8.0)
[2023-05-13 13:50] LABS: Troponin-I High Sensitivity 754.1 ng/L (<3.5-17.0)
[2023-05-13] MEDS: Aspirin 325 MG TABLET PO (14:09)
[2023-05-13] MEDS: Atorvastatin Calcium 80 MG TABLET PO (14:14)
--- NOTE | 2023-05-13 14:18 | PC.NURSE ---
pt a&ox3. respirations even and unlabored. lung sounds clear bilaterally. pt reports eating lunch around 12pm yesterday when she felt a sudden midsternal chest pain that radiated into her back. pt reports going to urgent care who had told her she had an abnormal EKG and had pt come to [facility] [place]. pt denies nausea, vomiting, SOB and chest pain at this time. pt reports a mild discomfort in her upper back at this time. pt normal sinus on tele. 20 placed in pt left AC.
[2023-05-13] MEDS: Nitroglycerin 0.4 MG TAB.SUBL SUBLINGUAL (14:36)
--- NOTE | 2023-05-13 14:53 | CA_ITS ---
Transthoracic Echocardiogram Patient (Last, First, Middle): Michelle Mensah, Gender: Female Date of : 1980 Age: 42 Procedure Date: 05/13/2023 Procedure Type: Transthoracic Echocardiogram Location: ER Height: 175.26 cm Weight: 102.06 kg BSA: 2.17 m2 Heart Rate: bpm BP: 131 / 83 mmHg Woods Manager: SVETLANA Referring MD: Qasim Rausch MD Research Microbiologist: Qasim Rausch MD Symptoms: NSTEMI Study Quality: Fair w Contrast ECG Rhythm: Sinus Conclusions: - 1. [id number] LV systolic dysfunction with regional wall motion abnormality suggestive ischemic cardiomyopathy 2. Normal cardiac valvular Dopplers 3. Normal RV systolic pressure 4. No gross pericardial effusion Findings Procedure Information Contrast agent, definity, is being given per protocol without apparent complications. Left Ventricle The left ventricular systolic function is mild to moderately decreased. The visually estimated ejection fraction is between 40-45%. Spectral Doppler is indicative of a normal filling pattern. Wall Motion Rest Echo Findings The inferoseptal wall, the apical inferior, and mid inferior segments are hypokinetic. The basal inferior and apical septum segments are akinetic. All other scored wall segments showed normal motion. Right Ventricle Normal right ventricular cavity size and systolic function. Atria The left atrium is normal in size. Interatrial shunt cannot be excluded. Aortic Valve The aortic valve structure and function is likely normal. There is no aortic valve stenosis. There is no aortic valve regurgitation. Mitral Valve Likely normal mitral valve structure and function. There is trace mitral valve regurgitation. There is no mitral valve stenosis. Pulmonic Valve The pulmonic valve was not well visualized. Tricuspid Valve Likely normal tricuspid valve structure and function. There is trace tricuspid valve regurgitation. The right ventricular systolic pressure is normal. The right ventricular systolic pressure is 19 mmHg. Normal right atrial pressure. There is no evidence of pulmonary hypertension. Great Vessels All visible segments of the aorta are normal in size. The pulmonary artery was not well visualized. Venous The inferior vena cava is normal in size and collapses greater than 50% with inspiration. Pericardium/Pleural There is no evidence of pericardial effusion. Prior Study Comparison No prior study available for comparison. Measurements 2D Linear Measurements IVSd: 1.20 0.6-0.9/0.6-1.0 cm LVIDd: 4.59 3.9-5.3/4.2-5.9 cm LVIDd Index: 2.12 2.4-3.2/2.2-3.1 cm/m2 LVIDs: 3.10 2.0-3.6 cm LVPWd: 1.24 0.7-1.1 cm Ao Root: 2.60 2.1-3.5 cm LA Diam: 3.80 2.7-3.8/3.0-4.0 cm LAIDs Index: 1.75 1.5-2.3 cm/m2 LV Mass: 260.76 67-162/88-224 g LV Mass Index: 120.16 43-95/49-115 g/m2 LVOT Diam: 2.00 3.0+(-)1.3 cm 2D Systolic Function EF 4C: 46.10 >55% EF 2C: 41.60 >55% Mitral Valve MV Pk E: 0.68 MV PK A: 0.72 MV Decel Time: 142.00 E/A: 1.00 E'Lateral: 12.60 E'Medial: 9.36 E/E' Med: 7.30 E/E' Lat: 5.40 PHT: 42.00 MVA PHT: 5.24 Decel [place]oke: 4.81 Aortic Valve AoV Pk Joe: 1.52 AoV Mn Joe: 0.91 AoV VTI: 0.27 AoV Pk Grad: 9.00 Aov Mn Grad: 4.00 EZRA Cont.VTI: 2.02 LVOT LVOT Pk Joe: 0.83 LVOT Mn Joe: 0.53 LVOT VTI: 0.17 LVOT Pk Grad: 3.00 LVOT Mn Grad: 1.00 LVOT Diam: 2.00 LVOT Area: 3.14 Diastolic Function MV Pk E: 0.68 MV Pk A: 0.72 E/A: 1.00 E'Medial: 9.36 E/E' Med: 7.30 E' Laterial: 12.60 E/E' Lat: 5.40 Right Ventricle TAPSE (mm): 22.00 TVS' Joe: 9.00 Tricuspid Valve TR Pk Joe: 2.00 TR Pk Grad: 16.00 RA Press: 3.00 RVSP: 19.00 Great Vessels Aorta Ao Root-2D: 2.60 2.0-3.7 cm Ao Asc: 2.80 2.1-3.4 cm Updated in Other Vendor System with Status of Final Qasim Rausch MD electronically signed on 05/13/2023 5:02:39 PM with status of Final
--- NOTE | 2023-05-13 15:00 | PC.NURSE ---
per EDWAR coy ordering PTT and to draw at this time
--- NOTE | 2023-05-13 15:16 | PC.NURSE ---
clarified w sandeep coy- states ok to start heparin gtt prior to PTT coming back- added on PTT. hanging heparin now w witness rn in room at bedside. sandeep coy checking into if need initial bolus
[2023-05-13] MEDS: Heparin Sodium,Porcine/1/2NS 25,000 UNIT/250 ML IV.SOLN 14.52 UNIT IVCONT (15:19)
--- NOTE | 2023-05-13 15:28 | PC.NURSE ---
cell manager at bedside aware starting heparin gtt.
--- NOTE | 2023-05-13 15:30 | PM.IMHP ---
History of Present Illness Date of Service: 05/13/23 Attending physician on admission: Jean Pierre Woods Chief Complaint: Chest tightness, back discomfort Pt is a 42-year-old female with a PMH significant for?yiz-ahnpalu-ecmjkitlc diabetes type 2, who presents to the ED with? ED consulted Cardiology, who has had patient did not need an emergent cardiac catheterization. Suggested admitting the patient to trend troponins and treat with heparin, aspirin, statin, and nitro. In the ED patient was afebrile and hypertensive up to 185/96. Labs were significant for troponin 754.1, otherwise unremarkable: Stable H&H, no leukocytosis, electrolytes WNL, hepatic and renal function baseline. CXR showed no acute cardiopulmonary process. EKG demonstrated normal sinus rhythm with non specific T-wave inversion in lead III and ST elevation in V2. Pt was treated with aspirin, statin, nitroglycerin, and placed on a heparin drip. Pt will be admitted to the hospital [facility] Medical History Asthma Diabetes Social History Alcohol intake: never Smoked in Last 30 Days: No Use of substances other than those prescribed or required for medical reasons: No Advance Directives: No Advance Directives Information Provided: No Current occupational status: employed Current occupation: [employer] Allergies Allergy/AdvReac Type Severity Reaction Status Date / Time No Known Allergies Allergy Verified 05/13/23 13:02 [No Known Allergies*] Active Medications: Current Medications Heparin Sodium (Porcine) (Heparin Sodium,Porcine 5,000 Unit/Ml Vial) 4,100 unit 40 unit/kg (4100 unit) IVPUSH PROTOCOL BOLUS PRN; Protocol PRN Reason: 40 unit/kg - Heparin Protocol Heparin Sodium (Porcine) (Heparin Sodium,Porcine 5,000 Unit/Ml Vial) 8,300 unit 80 unit/kg (8300 unit) IVPUSH PROTOCOL BOLUS PRN; Protocol PRN Reason: 80 unit/kg - Heparin Protocol Heparin Sodium/Sodium Chloride (Heparin Sodium,Porcine/1/2ns) 25,000 unit in 250 mls @ 0 mls/hr IVCONT .Q0M NICOLE; Protocol Last Admin: 05/13/23 15:19 Dose: 14 units/kg/hr, 14.52 mls/hr Home Medications Medication Instructions Recorded Confirmed Last Taken Type empagliflozin 10 mg tablet 10 mg PO DAILY 03/11/23 Unknown History (Jardiance) tirzepatide 5 mg/0.5 mL 5 mg subcut QWEEK 03/11/23 Unknown History subcutaneous pen injector (Lisa) Physical Exam Vital Signs and Narrative: Vital Signs: Last Vital Signs Temp 98.6 F 05/13/23 14:17 Pulse 95 05/13/23 15:00 Resp 18 05/13/23 14:39 BP 131/83 05/13/23 15:00 Pulse Ox 100 05/13/23 15:00 O2 Del Method Room Air 05/13/23 15:00 BMI result Body Mass Index 33.8 Results Labs 05/13/23 13:18 05/13/23 13:18 Labs: Laboratory Results - last 24 hr 05/13/23 05/13/23 05/13/23 13:18 13:18 13:18 MCV 83.0 MCH 25.2 L MCHC 30.4 L RDW 15.2 Plt Count 410 H MPV 9.2 L Immature Gran % (Auto) 0.3 Neut % (Auto) 54.4 Lymph % (Auto) 33.0 [place] % (Auto) 10.0 Eos % (Auto) 1.7 Baso % (Auto) 0.6 Lymph # (Auto) 3.1 [place] # (Auto) 0.9 Eos # (Auto) 0.2 Baso # (Auto) 0.1 Abs Immat Gran (auto) 0.03 Absolute Neuts (auto) 5.1 Absolute Nucleated RBC 0.000 Nucleated RBC % (auto) 0.0 PT 11.1 INR 0.9 Anion Gap 13 Estim Creat Clear Calc 108.1 Estimated GFR > 60 Random Glucose 149 H Calcium 10.4 H D Magnesium 1.9 Total Bilirubin 0.2 Direct Bilirubin < 0.2 AST 22 ALT 20 Alkaline Phosphatase 79 Total Protein 7.6 Albumin 4.2 Imaging Radiologist's Impressions: Impressions Chest X-Ray 05/13/23 13:30 IMPRESSION: No acute cardiopulmonary process. Assessment and Plan Time Spent With Patient Time: Total time managing care of this patient today ____ minutes.
[2023-05-13] MEDS: Heparin Sodium,Porcine 5,000 UNIT/ML VIAL 4000 UNIT IVPUSH (15:36)
[2023-05-13] MEDS: Metoprolol Tartrate 12.5 MG HALFTAB PO (15:41)
[2023-05-13 15:58] LABS: Partial Thromboplastin Time 30.3 SEC (26.0-36.4)
--- NOTE | 2023-05-13 15:59 | PM.CNCAR ---
History of Present Illness History of Present Illness Date of Service: 05/13/23 Requesting physician: Jennie Thorpe Consult reason: other (NSTEMI) Chief complaint: sent from urgent care / chest discomfort Narrative: I was consulted to see Liv in cardiology consultation today for elevated troponin the symptoms suggestive of myocardial ischemia. 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 As per the diabetes is well managed and last hemoglobin A1c 6.9%. She was in usual state of health yesterday when after eating she developed retrosternal chest tightness which is not severe. She has never had symptoms like that in the past. However she did not immediately seek any medical attention. Last night then she had interscapular discomfort that felt like a dull ache. Patient came to work today in continued to have this mild discomfort in her back. She measured a blood pressure and from urgent care was referred to the emergency room. In the emergency room initial EKG is nonischemic however troponin was elevated at 750. Blood pressure was significantly elevated. The blood pressure improved with 1 sublingual nitroglycerin but still persistently remains elevated. She says she probably think she still has mild interscapular discomfort. Strong family history of premature coronary artery disease, both in her brother as well as in her dad Review of Systems Constitutional: Constitutional: Reports no additional constitutional complaints Eyes: Eyes: Reports no additional eye complaints Cardiovascular: Cardiovascular: Reports chest pain at rest, Denies leg edema, Denies lightheadedness, Denies Loss of Consciousness, Denies palpitations and Denies dyspnea Respiratory: Respiratory: Reports no additional respiratory complaints and Denies dyspnea Gastrointestinal: Gastrointestinal: Reports no additional gastrointestinal complaints Genitourinary: Genitourinary: Reports no additional female genitourinary complaints Musculoskeletal: Musculoskeletal: Reports no additional musculoskeletal complaints Integumentary/Breasts: Skin/Breast: Reports system reviewed and no additional complaints, except as docu Neurologic: Reports system reviewed and no additional complaints, except as documented Psychiatric: Psychiatric: Reports no additional psychiatric complaints Endocrine: Endocrine: Denies palpitations PMFSH Past Medical History Medical History Asthma Diabetes Social History Social History Alcohol intake: never Smoked in Last 30 Days: No Use of substances other than those prescribed or required for medical reasons: No Advance Directives: No Advance Directives Information Provided: No Current occupational status: employed 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 Allergies Allergy/AdvReac Type Severity Reaction Status Date / Time No Known Allergies Allergy Verified 05/13/23 13:02 [No Known Allergies*] Active Medications: Current Medications Heparin Sodium (Porcine) (Heparin Sodium,Porcine 5,000 Unit/Ml Vial) 4,100 unit 40 unit/kg (4100 unit) IVPUSH PROTOCOL BOLUS PRN; Protocol PRN Reason: 40 unit/kg - Heparin Protocol Heparin Sodium (Porcine) (Heparin Sodium,Porcine 5,000 Unit/Ml Vial) 8,300 unit 80 unit/kg (8300 unit) IVPUSH PROTOCOL BOLUS PRN; Protocol PRN Reason: 80 unit/kg - Heparin Protocol Heparin Sodium/Sodium Chloride (Heparin Sodium,Porcine/1/2ns) 25,000 unit in 250 mls @ 0 mls/hr IVCONT .Q0M NICOLE; Protocol Last Admin: 05/13/23 15:19 Dose: 14 units/kg/hr, 14.52 mls/hr Home Medications Medication Instructions Recorded Confirmed Last Taken Type empagliflozin 25 mg tablet 25 mg PO DAILY 05/13/23 05/13/23 Unknown History (Jardiance) insulin glargine-yfgn 100 unit/mL 20 unit subcut DAILY 05/13/23 05/13/23 Unknown History (3 mL) subcutaneous pen (Semglee (insulin glargine-yfgn) Pen) metformin 1,000 mg tablet 1,000 mg PO BID 05/13/23 05/13/23 Unknown History tirzepatide 7.5 mg/0.5 mL 7.5 mg subcut QWEEK 05/13/23 05/13/23 Unknown History subcutaneous pen injector (Mounjaro) Physical Exam Vital Signs: Vital Signs: Last Vital Signs Temp 98.6 F 05/13/23 14:17 Pulse 97 05/13/23 15:39 Resp 20 05/13/23 15:39 BP 130/78 05/13/23 15:39 Pulse Ox 100 05/13/23 15:39 O2 Del Method Room Air 05/13/23 15:39 BMI result Body Mass Index 33.8 Const: General: cooperative, comfortable, no acute distress, alert, awake, anxious and other (Crying) Nutritional Appearance: obese Orientation/consciousness: patient oriented x3 Limitations: no limitations HEENT: Head: Yes normocephalic and Yes atraumatic Neck: Neck: Yes trachea midline, Yes supple and Yes no JVD Resp: Effort & Inspection: normal respiratory effort Auscultation: clear to auscultation bilaterally Cardio: Jugular venous distension: no JVD Palpation: normal PMI Rate: regular rate Rhythm: regular rhythm Heart sounds: S1 normal heart sound present, S2 normal heart sound present, no click, no gallops and no murmurs GI: Auscultation: normal bowel sounds Skin: General skin exam: no rashes or lesions noted Neuro: General: patient oriented x3 and no focal motor deficits Extrem: General: Yes no clubbing, cyanosis or edema Objective Labs and Meds 05/13/23 13:18 05/13/23 13:18 Lab results: Laboratory Results - last 24 hr 05/13/23 05/13/23 05/13/23 13:18 13:18 13:18 WBC 9.3 RBC 4.88 Hgb 12.3 Hct 40.5 MCV 83.0 MCH 25.2 L MCHC 30.4 L RDW 15.2 Plt Count 410 H MPV 9.2 L Immature Gran % (Auto) 0.3 Neut % (Auto) 54.4 Lymph % (Auto) 33.0 [place] % (Auto) 10.0 Eos % (Auto) 1.7 Baso % (Auto) 0.6 Lymph # (Auto) 3.1 [place] # (Auto) 0.9 Eos # (Auto) 0.2 Baso # (Auto) 0.1 Abs Immat Gran (auto) 0.03 Absolute Neuts (auto) 5.1 Absolute Nucleated RBC 0.000 Nucleated RBC % (auto) 0.0 PT 11.1 INR 0.9 Sodium 141 Potassium 4.1 Chloride 108 Carbon Dioxide 24 Anion Gap 13 BUN 10 Creatinine 0.86 Estim Creat Clear Calc 108.1 Estimated GFR > 60 Random Glucose 149 H Calcium 10.4 H D Magnesium 1.9 Total Bilirubin 0.2 Direct Bilirubin < 0.2 AST 22 ALT 20 Alkaline Phosphatase 79 Troponin I High Sens Total Protein 7.6 Albumin 4.2 05/13/23 13:18 WBC RBC Hgb Hct MCV MCH MCHC RDW Plt Count MPV Immature Gran % (Auto) Neut % (Auto) Lymph % (Auto) [place] % (Auto) Eos % (Auto) Baso % (Auto) Lymph # (Auto) [place] # (Auto) Eos # (Auto) Baso # (Auto) Abs Immat Gran (auto) Absolute Neuts (auto) Absolute Nucleated RBC Nucleated RBC % (auto) PT INR Sodium Potassium Chloride Carbon Dioxide Anion Gap BUN Creatinine Estim Creat Clear Calc Estimated GFR Random Glucose Calcium Magnesium Total Bilirubin Direct Bilirubin AST ALT Alkaline Phosphatase Troponin I High Sens 754.1 H* Total Protein Albumin EKG shows no acute ST T wave changes Imaging Radiologist's impression: Impressions Chest X-Ray 05/13/23 13:30 IMPRESSION: No acute cardiopulmonary process. Assessment and Plan (1) Non-ST elevation [place] (NSTEMI): Status: Acute Patient with significant risk factors with diabetes, BC days of strong family history of premature coronary artery disease presents with symptoms and troponin consistent with acute coronary syndrome with high risk. Patient is currently still having some interscapular pain and elevated blood pressure. Acute aortic syndrome needs to be ruled out. Will suggest the chest CTA. If this is negative will also obtain echocardiogram. Agree with aspirin, high-intensity statin as well IV heparin. Better control blood pressure with nitropaste and beta-blockers. If chest CTA is negative which most likely is will need cardiac catheterization to further evaluate coronary artery disease. Pathophysiology of acute coronary syndrome was discussed with her. She is very emotional about it. Possible etiology including acute plaque rupture, erosion and or spontaneous coronary artery dissection was discussed. Treatment based on finding of cardiac catheterization. We discussed the need for cardiac catheterization including risk, benefits, alternatives 2nd opinion. She understands and agrees. Will transfer to [facility] for cardiac catheterization after obtaining coronary CTA. Will follow with you Time Spent With Patient Time: Total time managing care of this patient today ____ minutes. Procedures Date of Service Date of Service: 05/13/23
--- NOTE | 2023-05-13 16:29 | PC.NURSE ---
echo at bedside. pt tolerating procedure well.
--- NOTE | 2023-05-13 16:41 | PC.NURSE ---
holding nitro paste per verbal provider order. pt BP 104/49.
--- NOTE | 2023-05-13 16:55 | PC.NURSE ---
echo done- placing 2nd iv for cta
--- NOTE | 2023-05-13 16:55 | PC.NURSE ---
pa [place] state parameter hold nitro for SBP <120
[2023-05-13 17:21] LABS: COVID-19 Test Negative (Negative); IDNOW Serial# BCCEAD1C
[2023-05-13] MEDS: iohexoL 350 MG/ML 100 ML INFUS..BTL IV (17:25)
--- NOTE | 2023-05-13 18:11 | PHA.MEDREC ---
Pharmacy Consult ? Medication Reconciliation Pharmacy has completed the medication reconciliation. Patient reported all medicaitons. Jasmyne KingD
[2023-05-13 18:17] LABS: Troponin-I High Sensitivity 864.8 ng/L (<3.5-17.0)
--- NOTE | 2023-05-13 20:18 | PC.NURSE ---
report given to [facility] nurse on M7. healthcare receptionist working on pt transfer at this time.
--- NOTE | 2023-05-13 20:24 | PC.NURSE ---
EMS at bedside to transport pt to [facility]. report given.
== END 2023-05-13 20:38 | disposition short-term general hospital (02) ==
PROVIDERS: Internal Medicine Cardiovascular Disease; Nurse Practitioner Family; Physician Assistant; Emergency Provider Emergency Medicine; PCP Pediatrics
DX: I21.4 Non-ST elevation (NSTEMI) myocardial infarction (principal); R07.9 Chest pain, unspecified; E11.9 Type 2 diabetes mellitus without complications; E78.5 Hyperlipidemia, unspecified; Z79.4 Long term (current) use of insulin; Z79.899 Other long term (current) drug therapy; Z20.822 Contact with and (suspected) exposure to COVID-19
CPT/HCPCS: 36415; 71046; 71275; 80048; 80076; 83735; 84484; 85025; 85610; 85730; 87635; 93005; 93306; 96374; 96375; 99285; J1643; Q9957; Q9967

== ENCOUNTER → 2023-05-13 14:25 | Outpatient (BNV) | payer OTHER, SELFPAY | PROVIDERS: Emergency Provider Emergency Medicine; PCP Pediatrics; Visit Provider Internal Medicine Cardiovascular Disease | DX: I21.4 Non-ST elevation (NSTEMI) myocardial infarction (principal) | CPT/HCPCS: 93306; 99284 ==

== ENCOUNTER → 2023-05-14 23:59 | Outpatient (BNV) | payer OTHER, SELFPAY | PROVIDERS: PCP Pediatrics; Visit Provider Internal Medicine Cardiovascular Disease | DX: I21.4 Non-ST elevation (NSTEMI) myocardial infarction (principal) | CPT/HCPCS: 93458; 99152 ==

== ENCOUNTER 2023-05-29 08:51 | Outpatient (AMB) | payer OTHER, SELFPAY ==
--- NOTE | 2023-05-29 08:55 | A.OFFVIS_ITS ---
Intake Vital Signs 05/29/23 08:56 Height 5 ft 9 in Weight 222 lb 10.67 oz BMI 32.9 BP 120/76 Blood Pressure Location Lt brachial Position Sitting Pulse 92 Intake Visit Reasons: Nstemi f/u Intake Note: Follow-up NSTEMi feeling ok just nervous Cash Person Required: No Allergies No Known Allergies [No Known Allergies*] Allergy (Verified 05/13/23 13:02) Medication List - Last Reconciled 05/29/23 by BOUCHRA Guevara aspirin (Adult Aspirin Regimen) 81 mg PO DAILY atorvastatin 80 mg PO BEDTIME biotin 10 mg PO DAILY clopidogrel 75 mg PO DAILY empagliflozin (Jardiance) 25 mg PO DAILY insulin glargine-yfgn (Semglee (insulin glargine-yfgn) Pen) 32 units subcut BEDTIME metformin 500 mg PO BEDTIME metoprolol succinate ER 50 mg PO DAILY multivitamin 1 tab PO DAILY tirzepatide 10 mg subcut TH HPI Nstemi f/u HPI Details Michelle is a 42-year-old female with past medical history of diabetes, obesity who recently presented to [facility] with reports of chest discomfort and scapular area discomfort. She ruled in for ACS. An echocardiogram showed EF 40-45% with wall motion abnormality. He was transferred to [facility] where she underwent cardiac catheterization showing occlusion of right PDA, SCAD which was managed medically. Today she reports she has had much stress and anxiety over her current heart con dition. She has been getting some intermittent discomfort in her chest that lasts only a few seconds and resolves. She also has some aching at times in her back and is unsure if it is recurrent scapular discomfort or not. She has been doing only light physical activity. She has not begun cardiac rehab. Her right radial catheterization site is healing well. No shortness of breath, presyncope, syncope, falls. No PND, orthopnea or edema. Taking meds as directed. No bleeding issues reported. [facility] Medical History (Updated 05/14/23 @ 00:02 by Roxie Marie) Asthma Diabetes Surgical History (Updated 05/29/23 @ 10:47 by TRICIA GuevaraC) Hx of hand surgery Hx of cardiac cath Family History (Updated 05/29/23 @ 09:04 by Ivett Gerard A) Father CAD (coronary artery disease) Mother No problems noted. 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 Review of Systems Const All systems reviewed & are unremarkable except as noted in HPI and below Denies chills, Denies fatigue, Denies fever(s), Denies frequent falls, Denies weakness, Denies weight gain and Denies weight loss ENT Denies dizziness Card Reports chest pain, Denies leg edema, Denies lightheadedness, Denies palpitations, Denies dyspnea, Denies dyspnea on exertion, Denies orthopnea and Denies other (loss of consciousness) Resp Denies cough, Denies dyspnea and Denies dyspnea on exertion GI Denies hematochezia and Denies change in stool character Musc Denies abnormal gait, Denies muscle weakness, Denies numbness, Denies radiating pain into limb and Denies tingling Neuro Denies abnormal gait, Denies dizziness, Denies frequent falls, Denies numbness, Denies tingling and Denies weakness Endo Denies fatigue and Denies palpitations Physical Exam Vital Signs: Last Vital Signs Pulse 92 05/29/23 08:56 BP 120/76 05/29/23 08:56 BMI result Body Mass Index 32.9 Const General: cooperative, healthy appearing, comfortable and no acute distress Orientation/consciousness: patient oriented x3 Neck Neck: Yes normal visual inspection Resp Effort & Inspection: normal respiratory effort Auscultation: clear to auscultation bilaterally, no crackles, no rales, no rhonchi and no wheezes Cardio Jugular venous distension: no JVD Rate: regular rate Rhythm: regular rhythm Heart sounds: S1 normal heart sound present, S2 normal heart sound present, no gallops and no murmurs Neuro General: patient oriented x3 Extrem Other: right radial cath site healing well - palp radial pulse, normal hand motion/ sensation General: Yes normal to inspection and No no pedal edema Psych Appearance: grossly normal Mental Status: mental status grossly normal Speech and movement: Normal speech and movement present Assessment & Plan Assessment & Plan (1) Non-ST elevation [place] (NSTEMI): Code(s): I21.4 - Non-ST elevation (NSTEMI) myocardial infarction Plan: Presented to [employer] [facility] [place] on 05/13/2023 with report of chest discomfort and scapular area discomfort. Her EKG showed no acute abnormalities. Her troponin was elevated up to 750. Blood pressure was elevated. CTA showed no PE and no dissection. An echocardiogram showed EF 40-45%, regional wall motion abnormality, inferior septal, apical mid inferior akinetic. 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 She has been having some atypical discomfort since that time. No symptoms like what made her go to the emergency room. She is tearful and anxious over her new diagnosis. Spent time reviewing test results with her in detail. She did have a CTA of the head and neck at [facility] which did not show any acute abnormalities, no stenosis. A renal artery ultrasound was done, no report is available in the system as of yet. Patient tells me that she was told that image quality was not good. Will plan to start her in cardiac rehab at [employer] [facility] [place] in approximately 2 weeks. Will obtain a limited echocardiogram in 1 month to re- evaluate EF and wall motion. Recommend she stay out of work for another 2 weeks which will be 1 month post NSTEMI. Continue aspirin and Plavix. Continue high- dose atorvastatin, metoprolol XL. Signs and symptoms of angina reviewed. Cardiology follow-up in 2 months, sooner if needed. Emergency care if ever needed for recurrent symptoms (2) Hx of cardiac cath: Comment: 05/14/2023, left main normal, lad proximal 40% stenosis, left circumflex mild irregularities, RCA, lesion in right PDA mid subsection 100% stenosis, spontaneous coronary artery dissection Code(s): Z98.890 - Other specified postprocedural states Plan: Right radial catheterization site healing well Orders: Orders Cardiac Rehab 2 Weeks I21.4 - Non-ST elevation (NSTEMI) myocardial infarction, Z98.890 - Other specified postprocedural states CA echo limited 1 Month I21.4 - Non-ST elevation (NSTEMI) myocardial infarction Coding Level of Care Code Est Pt Level 4 (98772) Diagnoses Non-ST elevation [place] (NSTEMI) I21.4 Hx of cardiac cath Z98.890 Time Spent (min) 30
[2023-05-29 08:56] VITALS: BP 120/76; PULSE 92; BMI 32.9
== END 2023-05-29 09:31 | disposition home or self-care (01) ==
PROVIDERS: PCP Pediatrics; Visit Provider Nurse Practitioner Family
DX: I21.4 Non-ST elevation (NSTEMI) myocardial infarction (principal); Z98.890 Other specified postprocedural states
CPT/HCPCS: 99214

== ENCOUNTER → 2023-05-29 08:51 | Outpatient (BNVA) | payer OTHER, SELFPAY | PROVIDERS: PCP Pediatrics; Visit Provider Nurse Practitioner Family ==

== ENCOUNTER → 2023-07-01 07:43 | Outpatient (REF) | payer OTHER, SELFPAY ==
--- NOTE | 2023-07-01 07:48 | CA_ITS ---
Transthoracic Echocardiogram Patient (Last, First, Middle): Michelle Mensah, Gender: Female Date of : 1980 Age: 43 Procedure Date: 07/01/2023 Procedure Type: Transthoracic Echocardiogram Location: OP Height: 175.26 cm Weight: 99.79 kg BSA: 2.15 m2 Heart Rate: bpm BP: 90 / 60 mmHg Commodity Analyst: TO Referring MD: Jenn High CHAMBER WORKERBlaze Claim Approver: Qasim Rausch MD Symptoms: I21.4 - Non-ST elevation (NSTEMI) myocardial infarction Study Quality: Adequate with contrast ECG Rhythm: Sinus Conclusions: - Normal LV ejection fraction 55-60% with improved wall motion Findings Procedure Information Contrast agent, definity, is being given per protocol without apparent complications. Left Ventricle Normal left ventricular size and systolic function. The visually estimated ejection fraction is between 55-60%. Wall Motion Rest Echo Findings The inferoseptal wall and basal inferior segment are hypokinetic. All other scored wall segments showed normal motion. Prior Study Comparison Changes noted compared to prior study dated: 05/13/2023. LV systolic function is improved Measurements 2D Linear Measurements IVSd: 1.37 0.6-0.9/0.6-1.0 cm LVIDd: 3.80 3.9-5.3/4.2-5.9 cm LVIDd Index: 1.77 2.4-3.2/2.2-3.1 cm/m2 LVIDs: 2.45 2.0-3.6 cm LVPWd: 1.02 0.7-1.1 cm LV Mass: 189.60 67-162/88-224 g LV Mass Index: 88.18 43-95/49-115 g/m2 LVOT Diam: 2.00 3.0+(-)1.3 cm 2D Systolic Function EF 4C: 53.60 >55% EF 2C: 55.60 >55% EF BiP: 54.70 >55% Mitral Valve MV Pk E: 0.94 MV PK A: 0.48 MV Decel Time: 200.00 E/A: 2.00 E'Lateral: 15.00 E'Medial: 7.83 E/E' Med: 12.00 E/E' Lat: 6.30 PHT: 59.00 MVA PHT: 3.73 Decel [place]: 4.69 LVOT LVOT Pk Joe: 0.90 LVOT Mn Joe: 0.65 LVOT VTI: 0.18 LVOT Pk Grad: 3.00 LVOT Mn Grad: 2.00 LVOT Diam: 2.00 LVOT Area: 3.14 Diastolic Function MV Pk E: 0.94 MV Pk A: 0.48 E/A: 2.00 E'Medial: 7.83 E/E' Med: 12.00 E' Laterial: 15.00 E/E' Lat: 6.30 Tricuspid Valve RA Press: 3.00 Updated in Other Vendor System with Status of Final Qasim Rausch MD electronically signed on 07/02/2023 4:34:00 PM with status of Final
== END ==
LOC: HO.CARD 07:43
PROVIDERS: PCP Pediatrics; Visit Provider Nurse Practitioner Family
DX: I21.4 Non-ST elevation (NSTEMI) myocardial infarction (principal)
CPT/HCPCS: 93308; Q9957

== ENCOUNTER → 2023-07-01 07:48 | Outpatient (BNV) | payer OTHER, SELFPAY ==
[2023-06-09 12:23] VITALS: BP 112/64; BP 140/80; BMI 33.0
== END ==
PROVIDERS: PCP Pediatrics; Visit Provider Internal Medicine Cardiovascular Disease
DX: I21.4 Non-ST elevation (NSTEMI) myocardial infarction (principal)
CPT/HCPCS: 93308

== ENCOUNTER 2023-07-20 14:15 | Outpatient (REF) | payer OTHER, SELFPAY | END 2023-07-20 14:16 | disposition home or self-care (01) | LOC: HO.MAMMO 14:15 | PROVIDERS: PCP Pediatrics; Visit Provider Pediatrics | DX: Z12.31 Encounter for screening mammogram for malignant neoplasm of breast (principal) | CPT/HCPCS: 77063; 77067 ==

== ENCOUNTER → 2023-07-20 14:30 | Outpatient (BNV) | payer OTHER, SELFPAY ==
[2023-06-09 12:23] VITALS: BP 112/64; BP 140/80; BMI 33.0
== END ==
PROVIDERS: PCP Pediatrics; Visit Provider Radiology Diagnostic Radiology
DX: Z12.31 Encounter for screening mammogram for malignant neoplasm of breast (principal)
CPT/HCPCS: 77063; 77067

== ENCOUNTER 2023-08-03 08:16 | Outpatient (AMB) | payer OTHER, SELFPAY ==
[2023-06-09 12:23] VITALS: BP 112/64; BP 140/80; BMI 33.0
[2023-08-03 08:23] VITALS: BP 120/72; PULSE 92; BMI 32.9
--- NOTE | 2023-08-03 08:23 | A.OFFVIS_ITS ---
Intake Vital Signs 08/03/23 08:23 Height 5 ft 9 in Weight 223 lb 1.725 oz BMI 32.9 BP 120/72 Pulse 92 Pulse Source Pulse Oximeter Intake Visit Reasons: 2 mth fu after echo Occupational Safety And Health Manager Required: No Allergies No Known Allergies [No Known Allergies*] Allergy (Verified 08/03/23 08:25) Medication List - Last Reconciled 08/03/23 by Jenn High NP-C aspirin (Adult Aspirin Regimen) 81 mg PO DAILY atorvastatin 80 mg PO BEDTIME biotin 10 mg PO DAILY clopidogrel 75 mg PO DAILY empagliflozin (Jardiance) 25 mg PO DAILY insulin glargine-yfgn (Semglee (insulin glargine-yfgn) Pen) 32 units subcut BEDTIME losartan 25 mg PO DAILY metformin 500 mg PO BEDTIME metoprolol succinate ER 50 mg PO DAILY multivitamin 1 tab PO DAILY tirzepatide 10 mg subcut TH HPI 2 mth fu after echo HPI Details Michelle is a 42-year-old female with past medical history of diabetes, obesity who presented to [facility] early May 2023 with reports of chest discomfort and scapular area discomfort. She ruled in for ACS. An echocardiogram showed EF 40-45% with wall motion abnormality. She was transferred to [facility] where she underwent cardiac catheterization showing occlusion of right PDA, SCAD which was managed medically. On follow up visit she was doing well and started in cardiac rehab. She recently underwent a repeat echo and now presents for follow up. Today she reports she has been doing well with no concerning symptoms. She is attending cardiac rehab and brings being list of vital signs which are all normal range. No exertional chest discomfort. No chest discomfort at rest, shortness of breath, palpitations, presyncope, syncope, PND, orthopnea or edema. She is working and tolerating normal ADLs without difficulty. She plans to take a trip to [place] in the near future. She is taking all meds as directed. No bleeding issues reported. [facility] Medical History Asthma Diabetes Surgical History Hx of hand surgery Hx of cardiac cath Family History Father CAD (coronary artery disease) Mother No problems noted. 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 Review of Systems Const All systems reviewed & are unremarkable except as noted in HPI and below ENT Denies dizziness Card Denies chest pain, Denies chest pain at rest, Denies chest pain with activity, Denies rapid heart rate, Denies pedal edema, Denies edema, Denies leg edema, Denies lightheadedness, Denies palpitations, Denies dyspnea, Denies dyspnea on exertion and Denies orthopnea Resp Denies cough, Denies dyspnea and Denies dyspnea on exertion GI Denies hematochezia and Denies change in stool character Musc Denies abnormal gait, Denies limited range of motion, Denies muscle cramps, Denies muscle weakness, Denies numbness, Denies radiating pain into limb, Denies stiffness and Denies tingling Neuro Denies abnormal gait, Denies dizziness, Denies numbness and Denies tingling Endo Denies palpitations Physical Exam Vital Signs: Last Vital Signs Pulse 92 08/03/23 08:23 BP 120/72 08/03/23 08:23 BMI result Body Mass Index 32.9 Const General: cooperative, healthy appearing, comfortable and no acute distress Orientation/consciousness: patient oriented x3 Neck Neck: Yes normal visual inspection Resp Effort & Inspection: normal respiratory effort Auscultation: clear to auscultation bilaterally, no crackles, no rales, no rhonchi and no wheezes Cardio Jugular venous distension: no JVD Rate: regular rate Rhythm: regular rhythm Heart sounds: S1 normal heart sound present, S2 normal heart sound present, no murmurs and no rubs Neuro General: patient oriented x3 Extrem General: Yes normal to inspection, No no pedal edema and No calf tenderness Psych Appearance: grossly normal Mental Status: mental status grossly normal Speech and movement: Normal speech and movement present Assessment & Plan Assessment & Plan (1) Non-ST elevation [place] (NSTEMI): Code(s): I21.4 - Non-ST elevation (NSTEMI) myocardial infarction Plan: Presented to [facility] [facility] [employer] on 05/13/2023 with report of chest discomfort and scapular area discomfort. Her EKG showed no acute abnormalities. Her troponin was elevated up to 750. Blood pressure was elevated. CTA showed no PE and no dissection. An echocardiogram showed EF 40-45%, regional wall motion abnormality, inferior septal, apical mid inferior akinetic. 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 On last visit she reported some atypical discomfort and was quite tearful and anxious over her new diagnosis. Since then she has started in cardiac rehab and has increased confidence and has built up good activity tolerance. An echocardiogram was done on 07/01/2023 showing EF 55-60%, improved wall motion, inferior septal and basal inferior segment hypokinetic. Today she reports feeling much better overall. She denies any anginal sounding symptoms. She continues in cardiac rehab and is working full-time. She is taking all meds as directed without any concerning side effects. Continue aspirin and Plavix. Continue high-dose atorvastatin, metoprolol XL. Will check labs including fasting lipid profile, CMP. Signs and symptoms of angina reviewed. Cardiology follow-up in 3-4 months, sooner if needed. Emergency care if ever needed for recurrent symptoms (2) Hx of cardiac cath: Comment: 05/14/2023, left main normal, lad proximal 40% stenosis, left circumflex mild irregularities, RCA, lesion in right PDA mid subsection 100% stenosis, spontaneous coronary artery dissection Code(s): Z98.890 - Other specified postprocedural states Plan: Right radial catheterization site healing well (3) Coronary artery disease: Code(s): I25.10 - Atherosclerotic heart disease of [place] coronary artery without angina pectoris Plan: Stable at present. Continue med management as above Orders: Orders Comprehensive Met. Panel Today E78.5 - Hyperlipidemia, unspecified Lipid Panel Today E78.5 - Hyperlipidemia, unspecified Coding Level of Care Code Est Pt Level 3 (30819) Diagnoses Non-ST elevation MN (NSTEMI) I21.4 Hx of cardiac cath Z98.890 Coronary artery disease I25.10 Time Spent (min) 24
== END 2023-08-03 08:48 | disposition home or self-care (01) ==
PROVIDERS: PCP Pediatrics; Visit Provider Nurse Practitioner Family
DX: I21.4 Non-ST elevation (NSTEMI) myocardial infarction (principal); Z98.890 Other specified postprocedural states; I25.10 Atherosclerotic heart disease of native coronary artery without angina pectoris
CPT/HCPCS: 99213

== ENCOUNTER → 2023-08-03 08:16 | Outpatient (BNVA) | payer OTHER, SELFPAY ==
[2023-06-09 12:23] VITALS: BP 112/64; BP 140/80; BMI 33.0
== END ==
PROVIDERS: PCP Pediatrics; Visit Provider Nurse Practitioner Family

== ENCOUNTER 2023-08-12 13:30 | Outpatient (RCR) | payer OTHER, SELFPAY ==
[2023-06-09 12:23] VITALS: BP 112/64; BP 140/80; BMI 33.0
--- NOTE | 2023-06-09 14:34 | MHC.CR.ITI ---
[address] [phone] F: [phone] Please see additional notes from [address] [phone] F: [phone] Please see additional notes from [facility] Cardiac Rehab Initial Assessment/ITP Cardiac Rehab Initial Assessment/ITP Start: 06/08/23 16:06 Freq: Status: Active Protocol: Activity Type Activity Date Activity User E-sign Co-sign Detail Recorded Client Recorded Date Recorded By Document 06/09/23 12:23 MARION [id number] 06/08/23 16:17 MARION 06/09/23 12:23 Cardiac Rehab ITP Initial [Excercise] -Tankage Grinder Operator Required No -Preferred Language Frisian -Number of sessions approved 36 -Diagnosis NSTEMI I21.4 -Other Diagnosis EF-40-45%, Asthma, Diabetes, Ischemic Cardiomyopathy -Comments + SCAD-symptoms were discomfort across shoulder blades, and tightness across chest. PDA 100% occluded with collaterals. [Functional Assessment] -6 Min Walk (distance in ft) 1,500 -METS Achieved 3.17 -Resting HR 85 -Resting BP 112/64 -Resting SpO2 98 -Exercise HR 105 -Exercise BP 140/80 -Exercise SpO2 100 -RPE 13 -Dyspnea Yes -ECG Summary SR-ST -Comments Expressed it was the most work she has done in a month . Support given . Gradual return to activities discussed. director sales and trade marketing reinforced exercise guidelines; orientation to gym completed. [Pre Rehab] -Pre Rehab Home Exercise No -Comments Not doing any exercise. She was told to not increase activity, do housework etc -Risk Stratification: Low Risk Uncomplicated Participants WI; CABG; angioplasty; atherectomy -Risk Stratification: Intermediate Mild to Risk Participants moderate depressed LV function (EF 31 -49%) -Fall Risk Yes -Assistive Devices None -Comments No recent falls . Follow up ECHO pending [Exercise Plan] [Intervention] -Exercise Prescription NuStep, Recumbent Bike, Recumbent Elliptical, Rower,Treadmill ,UBE,Upright Bike,Weights -Duration Intensity 36 Sessions -Frequency 2-3x/week -Angina with Exercise No [Exercise Education] -Exercise Education Exercise orientation, Exercise safety ,Home exercise, RPE,Self pulse checking,Signs and symptoms, Warmup/cooldown -Date Completed 06/09/23 -Initials CD -Education Summary Has twinges of chest discomfort with usual ADL's but it does not last. S/S to report reinforced. No further questions at this time. [Exercise Goals] -Exercise Most Days of the Week Yes -Exercise 30-45 mins/day Yes -Target HR Range +20 - +30 beats above resting -Target RPE range 11-13 -Increase METS next 30 days 0.5-1.0 METS Every two weeks -METs goal by Discharge 5 METS -Comments Was doing Tabitha once a week prior to [place] [Nutrition] [Hyperlipidemia] -Hyperlipidemia Yes -Are lab results available Yes -Lipid Draw Date 08/06/21 -Total Cholesterol 225 -LDL 113 -HDL 36 -Tryglycerides 384 [Diabetes] -Diabetes Yes -Are lab results available Yes -Fasting Glucose 101 -Date 06/09/23 -HbA1C 6.90 -Date 06/09/23 -Monitors Glucose Yes -Frequency AM [Weight Management] -Height 5 ft 9 in -Weight 101.3 kg -BMI 32.97 -Recommended Diet Diabetic, low fat, salt -Comments States she does not eat red meat [Drug/Alchohol Use] -Drug/Alcohol Use No -Comment Allergic to red wine-gets a rash [Nutritional Screen (Rate Your Plate)] -Score 50 -Interpretation of Score Could make healthier choices -Comments States she follows a Diabetic diet. She has PCOS and finds weight loss difficult. [Nutrition Plan] [Intervention] -Referral(s) Nutrition Brochures [Nutrition Education] -Nutrition Education Diabetes and excercise, Hydration, Nutrition, Reading food labels,Signs and symptoms of Hypo/Hyper- glycemia -Date Completed 06/09/23 -Initials CD -Education Summary Follows Diabetic diet. No hyper/ hypoglycemia. FBS this AM was 101. She will bring Glucometer to sessions. [Nutrition Goals] -Goals BMI < 25, Fasting BG 80- 120 mg/dL,HDL > 40,LDL < 70, Total CHOL < 200 -Weight goal Stay stable -Comments Weight has been stable. Has PCOS [Psycho/Social] -Stage of Change Action -Occupation Currently working -Job Description OT COordinator -PHQ9 Score 3 -Interpretation of Score Low -Plan of Action/Follow-up Michelle will contact a counselor if she feels it is needed for anxiety. She is anxious regarding recent event, and family history. -Patient Self-Reports Depression No: Anxiety is the main issue. She will decide if counseling is needed. -Family Support Lives with spouse/others -Comments Lives with daughter. She likes to bead for relaxation [Psycho/Social Plan] [Intervention] -Referral(s) No consult needed [Psycho/Social Education] -Psycho/Social Education Advanced directives, Coping techniques, Depression and CAD,Positive support system, Relaxation Techniques, Reviewed PHQ9 Score w/pt, Signs and symptoms of CAD ,Stress management -Date Completed 06/09/23 -Initials CD -Education Summary Education per Cardiac Rehab protocol. She will be changing HCP; her Sister has moved to [place]. Friends, co workers, Aunt, and boyfriend are supportive. She does not feel depressed. + Anxiety. Her initial symptoms were chest tightness and discomfort across her shoulder blades . [Psycho/Social Goals] -Goals Manage/reduce stress -Comments HAs nails done for self care. Expresses importance of self care. [Other Core Comp] [Risk Factors] -Risk Factors Diabetes, Dyslipidemia, Family History of CAD,Physical Inactivity -Comments: Works with [facility] [employer]. PCP is Dr. Ardon [Hypertension] -Hypertention No -Resting BP: 112/64 [Tobacco Use] -Patient Tobacco Use Status Never used Tobacco [Heart Failure] -EF% 40-45 -Dyspnea at Rest No -Dyspnea with Exercise Yes: Mild with 6MW -Comments Ischemic Cardiomyopathy. Repeat ECHO poending [Other Core Comp Plan] [Intervention] -Referral(s) Recognizing Stressors,Self Monitoring BP, Stress Management [Other Core Comp Education] -Other Core Comp Education Medication compliance,Risk factor modifications, RPD Scale/SOB management -Date Completed 06/09/23 -Initials cd -Education Summary BP was high after WI but usually has low BP(110/60). She will get BP Cuff [Other Core Comp Goals] -Goals Improve dyspnea ,Manage risk factors, Medication compliance, Resting BP < 130/80 -Comments Believe she has had a recent Lipid Profile at PCP [Medication Plan] [Intervention] -Medications ASA 81MG Daily Atorvastatin 80MG HS Biotin 10MG Daily Clopidogrel 75MG Daily Jardiance 25MG Daily Semglee-32 Units HS Metformin 500MG HS Metoprolol Succinate ER 50MG Daily Multivitamin-1 tab Daily Tirzepatide 10 MG SQ Losartan 25MG Daily -Compliance Patient reports compliance w/ prescribed meds [Medication Education] -Education Importance of medication compliance, Medication purpose, Medication schedule, Medication side effects -Date Completed 06/09/23 -Initials CD -Education Summary States understanding of medications [Medication Goals] -Goals Adherence to medication compliance [Treatment Times] -Rehab Services with ECG Monitor -Time 1300 -End Time 1415 -Visit Duration 75
[2023-08-18 11:42] VITALS: BP 112/64; BP 140/80; BMI 33.0
--- NOTE | 2023-08-18 12:16 | MHC.CR.ITD ---
[address] [phone] F: [phone] Please see additional notes from [address] [phone] F: [phone] Please see additional notes from [facility] Cardiac Rehab Discharge/ITP Cardiac Rehab Discharge/ITP Start: 06/08/23 16:06 Freq: Status: Active Protocol: Activity Type Activity Date Activity User E-sign Co-sign Detail Recorded Client Recorded Date Recorded By Document 08/18/23 11:42 MARION [id number] 08/18/23 12:05 MARION 08/18/23 11:42 Cardiac Rehab Discharge/ITP [Exercise] -Echo Tech Required No -Preferred Language Kinyarwanda -Total Sessions Attended 17 -Comments + SCAD-symptoms were discomfort across shoulder blades, and tightness across chest. PDA 100% occluded with collaterals. Discharge: Michelle attended 17 sessions of cardiac rehab( CR). She expressed she felt ready to be discharged. Michelle expresses an understanding of SCAD. She continues to work. VSS, Tel. SR-ST, Max Mets 3.3 while in cardiac rehab. She particiates in crafts, craft fairs, and daughter's activities. She expressed the importance of self care. She gained more confidence in her ability to be active while in CR. [Functional Assessment] -6 Min Walk (distance in ft) 1,500 -METS Achieved 3.17 -Resting HR 85 -Resting BP 112/64 -Resting SpO2 98 -Exercise HR 105 -Exercise BP 140/80 -RPE 13 -ECG Summary SR-Post assesment: 1425 feet, RPE 11, 3.1 METS. BP 108/58, RHR-85, Rest BP/HR, 102/62,85; 108 /58, 88 with 6MW. -Fall Risk No [Exercise Plan] [Intervention] -Exercise Prescription NuStep, Recumbent Bike, Recumbent Elliptical, Rower,Treadmill ,UBE,Upright Bike,Weights -Duration Intensity 36 Sessions -Exercise Minutes/Day 30 -Exercise Days/Week 3 -Angina with Exercise No -Peak METs 3.3 [Home Exercise] -Mode Walk -Frequency 2 Days -Intensity Light [Exercise Education] -Exercise Education Exercise orientation, Exercise safety ,Home exercise, RPE,Self pulse checking,Signs and symptoms, Warmup/cooldown -Date Completed 06/09/23 -Initials CD -Education Summary Has twinges of chest discomfort with usual ADL's but it does not last. S/S to report reinforced. No further questions at this time. Discharge-08/18-Michelle expressed she had an understanding of exercise guidelines and was ready to be discharged from Cardiac Rehab. No recent chest twinges , discomfort. [Exercise Goals] -Exercise Most Days of the Week Yes -Exercise 30-45 mins/day Yes -Target HR Range +20 - +30 beats above resting -Target RPE range 11-13 -Increase METS next 30 days 0.5-1.0 METS Every two weeks -METs goal by Discharge 5 METS -Comments Was doing Tabitha once a week prior to [place] Discharge: Obtained 3.3 METS. Michelle became more confident in her ability to exercise post event. [Nutrition] [Hyperlipidemia] -Are lab results available Yes -Hyperlipidemia Yes -Lipid Draw Date 08/06/21 -Total Cholesterol 225 -LDL 113 -HDL 36 -Tryglycerides 384 [Diabetes] -Diabetes Yes -Fasting Glucose 101 -Date 06/09/23 -HbA1C 6.90 -Date 06/09/23 -Medication Changes No [Weight Management] -Weight 101.3 kg -BMI 32.97 -Comments States she does not eat red meat Discharge-08/18-No weight change at this time. [Drug/Alchohol Use] -Drug/Alcohol Use No -Comment Allergic to red wine-gets a rash [Nutrition Plan] [Intervention] -Attended Nutrition Brochures [Nutrition Education] -Nutrition Education Diabetes and excercise, Hydration, Nutrition, Reading food labels,Signs and symptoms of Hypo/Hyper- glycemia -Date Completed 06/09/23 -Initials CD -Education Summary Follows Diabetic diet. No hyper/ hypoglycemia. FBS this AM was 101. She will bring Glucometer to sessions. Discharge: No s /s of hyper/ hypoglycemia. She did not check BS while in CR. [Nutrition Goals] -Goals BMI < 25, Fasting BG 80- 120 mg/dL,HDL > 40,LDL < 70, Total CHOL < 200 -Weight goal Stay stable -Comments Weight has been stable. Has PCOS DIscharge: Weight stable [Psycho/Social] -Stage of Change Action -Occupation Currently working -PHQ9 Score 3 -Interpretation of Score Low -Plan of Action/Follow-up Michelle will contact a counselor if she feels it is needed for anxiety. She is anxious regarding recent event, and family history. Discharge-08/18-Michelle likes crafts and is active in the community. She will reach out for counseling if he feels it is needed. Expressed she would reach out to services offered through employment. Michelle has gained more confidence in her ability to be active. -Patient Self-Reports Depression No: Anxiety is the main issue. She will decide if counseling is needed. -Comments Discharge-08/18-No change -Medication Changes No [Psycho/Social Plan] [Intervention] -Attended No consult needed [Psycho/Social Education] -Psycho/Social Education Advanced directives, Coping techniques, Depression and CAD,Positive support system, Relaxation Techniques, Reviewed PHQ9 Score w/pt, Signs and symptoms of CAD ,Stress management -Date Completed 06/09/23 -Initials CD -Education Summary Education per Cardiac Rehab protocol. She will be changing HCP; her Sister has moved to [place]. Friends, co workers, Aunt, and boyfriend are supportive. She does not feel depressed. + Anxiety. Her initial symptoms were chest tightness and discomfort across her shoulder blades Discharge: Michelle participated in cardiac rehab educational sessions. She works closely with MD. PHQ9 was 2 at discharge. She enjoys activities with daughter. [Psycho/Social Goals] -Goals Manage/reduce stress -Comments Has nails done for self care. Expresses importance of self care. Discharge: Continues to participate in activities she finds enjoyable , and self care . [Other Core Comp] [Hypertension] -Hypertention No -Resting BP: 112/64 -Medication Changes No -Comments Discharge: VSS at rest and with exercise. Resting BP 102/ 62 at last session, [Tobacco Use] -Change in Use No [Heart Failure] -Dyspnea at Rest No -Dyspnea with Exercise Yes: Mild with 6MW -Comments Ischemic Cardiomyopathy. Repeat ECHO pending [Other Core Comp Plan] [Intervention] -Attended Recognizing Stressors,Self Monitoring BP, Stress Management [Other Core Comp Education] -Other Core Comp Education Medication compliance,Risk factor modifications, RPD Scale/SOB management -Date Completed 06/09/23 -Initials cd -Education Summary BP was high after [place] but usually has low BP(110/60). She will get BP Cuff. Discharge: No elevated BP at cardiac rehab. No issues with medications. Michelle states s/s to report, risk factors, coping/ relaxation techniques. [Other Core Comp Goals] -Goals Improve dyspnea ,Manage risk factors, Medication compliance, Resting BP < 130/80 -Comments Believe she has had a recent Lipid Profile at PCP DIscharge: Follows up with MD's as recommended by MD's. [Medication Plan] [Intervention] -Medications ASA 81MG Daily Atorvastatin 80MG HS Biotin 10MG Daily Clopidogrel 75MG Daily Jardiance 25MG Daily Semglee-32 Units HS Metformin 500MG HS Metoprolol Succinate ER 50MG Daily Multivitamin-1 tab Daily Tirzepatide 10 MG SQ Losartan 25MG Daily -Compliance Patient reports compliance w/ prescribed meds [Medication Education] -Education Importance of medication compliance, Medication purpose, Medication schedule, Medication side effects -Date Completed 06/09/23 -Initials CD -Education Summary States understanding of medications 08/18/23- Discharge-No questions on, or issues with medication. [Medication Goals] -Goals Adherence to medication compliance -Comments 08/18/23- Discharge-no issues
== END 2023-08-20 12:38 | disposition home or self-care (01) ==
LOC: HO.CR 13:30
PROVIDERS: PCP Pediatrics; Visit Provider Nurse Practitioner Family
DX: I21.4 Non-ST elevation (NSTEMI) myocardial infarction (principal); Z98.890 Other specified postprocedural states
CPT/HCPCS: 93798

== ENCOUNTER 2023-11-30 08:30 | Outpatient (AMB) | payer OTHER, SELFPAY ==
[2023-06-09 12:23] VITALS: BP 112/64; BP 140/80; BMI 33.0
[2023-11-30 08:33] VITALS: BP 118/68; PULSE 88; BMI 33.2
--- NOTE | 2023-11-30 08:33 | A.OFFVIS_ITS ---
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 Allergies No Known Allergies [No Known Allergies*] Allergy (Verified 08/03/23 08:25) Medication List - Last Reconciled 11/30/23 by Qasim Rausch MD aspirin (Adult Aspirin Regimen) 81 mg PO DAILY atorvastatin 80 mg PO BEDTIME biotin 10 mg PO DAILY clopidogrel 75 mg PO DAILY empagliflozin (Jardiance) 25 mg PO DAILY insulin glargine-yfgn (Semglee (insulin glargine-yfgn) Pen) 32 units subcut BEDTIME losartan 25 mg PO DAILY metformin 500 mg PO BEDTIME metoprolol succinate ER 50 mg PO DAILY multivitamin 1 tab PO DAILY tirzepatide 10 mg subcut TH HPI HPI Comments History of Present Illness Details Michelle comes for follow-up. She has been doing well. Recent echocardiogram showed improved LV ejection fraction with no wall motion abnormality. This was discussed with her. Patient he has not having any exertional symptoms. She is taking all her medications. She denies any similar symptoms to her [place] presentation. Although she says she intermittently gets heartburn and is concerned if she would turn into an acute myocardial infarction. She exercise on a regular basis. Manages and takes all her medications regularly. PFSH Medical History Asthma Diabetes Surgical History Hx of hand surgery Hx of cardiac cath Family History Father CAD (coronary artery disease) Mother No problems noted. Social History Alcohol intake: never Patient Tobacco Use Status: Never used Tobacco Current occupational status: employed Current [place] [employer] [place] Review of Systems Const Denies chills, Denies fatigue, Denies fever(s), Denies frequent falls, Denies weakness, Denies weight gain and Denies weight loss ENT Denies dizziness Card Denies chest pain, Denies leg edema, Denies lightheadedness, Denies palpitations, Denies dyspnea, Denies dyspnea on exertion, Denies orthopnea and Denies other (loss of consciousness) Resp Denies cough, Denies dyspnea and Denies dyspnea on exertion GI Denies hematochezia and Denies change in stool character Musc Denies abnormal gait, Denies muscle weakness, Denies numbness, Denies radiating pain into limb and Denies tingling Neuro Denies abnormal gait, Denies dizziness, Denies frequent falls, Denies numbness, Denies tingling and Denies weakness Endo Denies fatigue and Denies palpitations Physical Exam Vital Signs: Last Vital Signs Pulse 88 11/30/23 08:33 BP 118/68 11/30/23 08:33 BMI result Body Mass Index 33.2 Const General: cooperative, healthy appearing, comfortable and no acute distress Orientation/consciousness: patient oriented x3 Neck Neck: Yes normal visual inspection Resp Effort & Inspection: normal respiratory effort Auscultation: clear to auscultation bilaterally, no crackles, no rales, no rhonchi and no wheezes Cardio Jugular venous distension: no JVD Rate: regular rate Rhythm: regular rhythm Heart sounds: S1 normal heart sound present, S2 normal heart sound present, no murmurs and no rubs Neuro General: patient oriented x3 Extrem General: Yes normal to inspection, No no pedal edema and No calf tenderness Psych Appearance: grossly normal Mental Status: mental status grossly normal Speech and movement: Normal speech and movement present Assessment & Plan Assessment & Plan (1) Spontaneous dissection of coronary artery: Code(s): I25.42 - Coronary artery dissection Plan: Patient with acute myocardial infarction suspected to be related to spontaneous coronary artery dissection of the PDA. Pathophysiology of SCAD was discussed with her. Limited treatment options were discussed. Ongoing research regarding this area was discussed. Offered her to have a consultation with SCAD center at [facility] although she says she prefers to continue medical therapy. Given her myocardial infarction will continue dual antiplatelet therapy for a total of 1 year. Continue maintain activity level as tolerated. (2) Coronary artery disease: Code(s): I25.10 - Atherosclerotic heart disease of [place] coronary artery without angina pectoris Plan: She does have CAD with mild LAD stenosis. Given underlying diabetes will continue aspirin for lifelong. Continue Lipitor 80 mg target goal LDL closer to 60 mg/dL. Continue aggressive blood pressure control. Continue aggressive diabetes control goal hemoglobin A1c less than 7%. (3) History of cardiomyopathy: Code(s): Z86.79 - Personal history of other diseases of the circulatory system Plan: Prior cardiomyopathy related acute myocardial infarction with normalized LV ejection fraction. Could also have a component of stunned myocardium. Discussed good prognosis associated with improved LV ejection fraction. Continue neurohormonal modulation with losartan and metoprolol therapy. Follow up in the clinic 1 year's time, sooner p.r.n.. Thank you for allowing me to partake in the care Orders: Orders Lipid Panel Today I25.10 - Atherosclerotic heart disease of [place] coronary a rtery without angina pectoris Medications: Changed From metoprolol succinate ER 50 mg PO DAILY 90 tabs 3RF To metoprolol succinate ER 50 mg PO DAILY Coding Level of Care Code Est Pt Level 4 (70915) Diagnoses Spontaneous dissection of coronary artery I25.42 Coronary artery disease I25.10 History of cardiomyopathy Z86.79
== END 2023-11-30 08:56 | disposition home or self-care (01) ==
PROVIDERS: PCP Pediatrics; Visit Provider Internal Medicine Cardiovascular Disease
DX: I25.42 Coronary artery dissection (principal); I25.10 Atherosclerotic heart disease of native coronary artery without angina pectoris; Z86.79 Personal history of other diseases of the circulatory system
CPT/HCPCS: 99214

== ENCOUNTER → 2023-11-30 08:30 | Outpatient (BNVA) | payer OTHER, SELFPAY | PROVIDERS: PCP Pediatrics; Visit Provider Internal Medicine Cardiovascular Disease ==

== ENCOUNTER 2024-04-21 07:28 | Outpatient (REF) | payer OTHER, SELFPAY ==
[2024-04-21 07:55] LABS: Estimated Average Glucose 154 mg/dL
[2024-04-21 08:12] LABS: Alanine Aminotransferase 17 U/L (0-31); Anion Gap 11 (12-20); Aspartate Amino Transferase 17 U/L (5-31); Blood Urea Nitrogen 12 mg/dL (9-16); Calcium 9.3 mg/dL (8.4-10.2); Carbon Dioxide 23 mmol/L (22-29); Chloride 107 mmol/L (96-108); Cholesterol 117 mg/dL (<200); Estimated Glomerular Filt Rate > 60; Glucose Random 135 mg/dL (60-115); HDL Cholesterol 36 mg/dL (>40); LDL Cholesterol Calculated 61 mg/dL (<100); Potassium 4.2 mmol/L (3.3-5.1); Sodium 137 mmol/L (135-145); Triglycerides 104 mg/dL (<150)
[2024-04-21 09:06] LABS: Creatinine Urine 81.07 mg/dL; Microalbumin Urine < 5.0 mg/L
== END 2024-04-21 07:29 | disposition home or self-care (01) ==
LOC: HO.LAB 07:28
PROVIDERS: PCP Pediatrics; Visit Provider Pediatrics
DX: E11.9 Type 2 diabetes mellitus without complications (principal); Z79.4 Long term (current) use of insulin; E78.2 Mixed hyperlipidemia
CPT/HCPCS: 36415; 80048; 80061; 82043; 82570; 83036; 84450; 84460

== ENCOUNTER 2024-07-21 14:05 | Outpatient (REF) | payer OTHER, SELFPAY ==
[2023-06-09 12:23] VITALS: BP 112/64; BP 140/80; BMI 33.0
--- NOTE | ~2024-07-21 | MM_ITS ---
EXAMINATION: MM SCREENING DIGITAL BREAST TOMOSYNTHESIS, BILATERAL CLINICAL INFORMATION: Screening. Asymptomatic. COMPARISON: Mammography: Comparison is made with available priors TECHNIQUE: Digital breast mammography with tomosynthesis is performed in both the craniocaudal and mediolateral oblique views along with computer-aided detection (CAD). FINDINGS: There are scattered areas of fibroglandular density (ACR BI-RADS breast composition Category b). There are no significant masses, abnormal calcifications, or other abnormalities. MM/MM tomosynthesis screening BI IMPRESSION: No mammographic evidence of malignancy. ASSESSMENT: BI-RADS BI-RADS 1 - Negative RECOMMENDATION: Routine annual mammography screening. 1 year F/U This examination should not preclude the clinical evaluation of a suspicious palpable abnormality. This patient's information was entered into a reminder system with a target due date for their next mammogram. Electronically signed by: Wendi Marquez DO 07/21/2024 09:37 PM BASHIR
== END 2024-07-21 14:06 | disposition home or self-care (01) ==
LOC: HO.MAMMO 14:05
PROVIDERS: PCP Pediatrics; Visit Provider Pediatrics
DX: Z12.31 Encounter for screening mammogram for malignant neoplasm of breast (principal)
CPT/HCPCS: 77063; 77067

== ENCOUNTER → 2024-07-21 14:15 | Outpatient (BNV) | payer OTHER, SELFPAY | PROVIDERS: PCP Pediatrics; Visit Provider Internal Medicine | DX: Z12.31 Encounter for screening mammogram for malignant neoplasm of breast (principal) | CPT/HCPCS: 77063; 77067 ==

== ENCOUNTER 2024-08-09 10:35 | Emergency (ER) | payer OTHER, SELFPAY ==
--- NOTE | ~2024-08-09 | XR_ITS ---
EXAMINATION: XR CHEST CLINICAL INFORMATION: Chest pain. COMPARISON: 05/13/2023 TECHNIQUE: 2 views of the chest were obtained. FINDINGS: The cardiac, hilar, and mediastinal contours are normal. The lungs are clear bilaterally. There is no pneumothorax or pleural effusion. There is no focal osseous or soft tissue abnormality. XR/XR chest 2V IMPRESSION: Normal chest. Electronically signed by: All Soria MD 08/09/2024 12:20 PM BASHIR
--- NOTE | 2024-08-09 10:48 | ECG_ITS ---
Test Reason : CHEST PAIN Blood Pressure : / mmHG Vent. Rate : 076 BPM Atrial Rate : 076 BPM P-R Int : 130 ms QRS Dur : 102 ms QT Int : 376 ms P-R-T Axes : 025 -17 -11 degrees QTc Int : 423 ms Normal sinus rhythm Minimal voltage criteria for LVH, may be normal variant ( R in aVL ) Borderline ECG When compared with ECG of 13-MAY-2023 13:12, No significant change was found Referred By: Generic ED Physician Electronically Signed By:Ciro Lopez
[2024-08-09 11:24] VITALS: BP 147/86; PULSE 77; RESP 18; TEMP 36.9; O2SAT 100; BMI 32.5
--- NOTE | 2024-08-09 11:29 | ED.CHESTPAIN ---
HPI - Chest Pain General Chief Complaint: Chest Pain Stated Complaint: Chest pain Time Seen by Provider: 08/09/24 11:32 Source: patient and old records reviewed Mode of arrival: ambulatory Limitations: no limitations History of Present Illness ED Provider: ROLDAN SPENCER narrative: 44 yo female with PMH of cardiomyopathy, SCAD in May 2023, HLD, DM here with c/o L chest pain since 930am today while at rest - no associated symptoms, did have recent food poisoning with vomiting and she was unsure if it was chest wall pain. She feels fine now. This is very different from her prior SCAD - last time she had dyspnea, n/v, and the pain went to her back. This is not the same. She is still compliant with aspirin and plavix. No recent travel/procedures/OCP use. MD complaint: chest pain Pertinent past history: other (SCAD) Onset (ago): hour(s) (930am today) Timing of current episode: now resolved Prior episodes: Yes Onset: during rest Pain location: left chest Pain radiation: none Severity: mild Quality: aching Relieving factors: nothing Exacerbating factors: nothing Context: other Treatment prior to arrival: none Related Data Home Medications ?Medication ?Instructions ?Recorded ?Confirmed empagliflozin 25 mg tablet 25 mg PO DAILY 05/13/23 11/30/23 (Jardiance) insulin glargine-yfgn 100 unit/mL 32 unit subcut BEDTIME 05/13/23 11/30/23 (3 mL) subcutaneous pen (Semglee (insulin glargine-yfgn) Pen) metformin 1,000 mg tablet 500 mg PO BEDTIME 05/13/23 11/30/23 multivitamin 1 tab PO DAILY 05/13/23 11/30/23 biotin 10 mg tablet 10 mg PO DAILY 05/29/23 11/30/23 tirzepatide 10 mg/0.5 mL 10 mg subcut TH 05/29/23 11/30/23 subcutaneous pen injector metoprolol succinate 50 mg 50 mg PO DAILY 11/30/23 11/30/23 tablet,extended release 24 hr Previous Rx's ?Medication ?Instructions ?Recorded aspirin 81 mg tablet,delayed 81 mg PO DAILY #90 tabs 11/23/23 release (Adult Aspirin Regimen) atorvastatin 80 mg tablet 80 mg PO BEDTIME #90 tabs 11/23/23 clopidogrel 75 mg tablet 75 mg PO DAILY #90 tabs 11/23/23 losartan 25 mg tablet 25 mg PO DAILY #90 tabs 11/23/23 Allergies Allergy/AdvReac Type Severity Reaction Status Date / Time No Known Allergies Allergy Verified 08/09/24 11:26 [No Known Allergies*] Review of Systems Review of Systems: Constitutional : No Weight loss, No Fever, No Chills ENT/Mouth : No sore throat, No Rhinorrhea Eyes: No Eye Pain, No Swelling Cardiovascular : pos Chest Pain, no SOB, no Dyspnea on Exertion, No Orthopnea, No Edema, No Palpitations Respiratory : No Cough, No Sputum Gastrointestinal : no Nausea, No Vomiting, No Diarrhea, No abdominal Pain, No Hematochezia, No Melena Genitourinary : No Dysuria, No Urinary Frequency Musculoskeletal : No joint pain, No Myalgias, No Joint Swelling Skin : No Skin Lesions, No rash Neuro : No Weakness, No Numbness, No Dizziness, No Headache All other systems reviewed and are negative [facility] Past Medical History Attestation statement: The following information was validated with the patient. Source: old records reviewed Medical History Asthma Diabetes Surgical History Hx of hand surgery Hx of cardiac cath Family History Family History Father CAD (coronary artery disease) Mother No problems noted. 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 Oriented X3. No acute distress. Eyes: Pupils equal, round and reactive to light. ENT: Pharynx normal. Neck: Normal inspection. Neck supple. CVS: Normal heart rate and rhythm. Pulses normal. Chest: ttp along L anterior chest wall reproduces pain Respiratory: No respiratory distress. Breath sounds normal. Abdomen: Soft and nontender. Skin: Skin warm and dry. Normal skin color. Extremities: No lower extremity edema. Neuro: Oriented X 3. No motor deficit. No sensory deficit. Course Course Course Narrative: This is a rapid medical exam performed by Nelly Hargrove PA-C. The patient is a 44-year-old female with a history of coronary artery dissection 2022, diabetes, cardiomyopathy, presents with chest pain since earlier today. Patient is hemodynamically stable, overall well in appearance. We will be screening basic labs, troponin EKG and chest x-ray. She is able to return to the waiting room pending results and full assessment. Medical Decision Making Medical Decision Making [facility] Narrative: 45 yo female with PMH of DM has pump, HLD here with c/o L sided chest pain starting at rest 930am today without any associated symptoms such as dyspnea, back pain, nausea - this is different from her SCAD but given her history she wanted to get checked out. She has no recent travel or procedures no OCP use. She did have food poisoning 2 days ago and was also wondering if this could be MSK pain her chest wall is ttp. I am going to obtain basic labs, troponin x 2, CXR and EKG - I am not suspecting dissection given distal pulses intact, no VTE she is PERC negative. Differential Diagnosis Differential Diagnoses: The differential diagnosis associated with the presentation includes atypical chest pain, does not remind her of SCAD symptoms are different will obtain trop x 2, chest wall pain Admission/Observation Consideration of admission/observation: Escalation of care including admission/observation considered labs, trop negative x 2, CXR negative Lab Data [facility] Lab Attestation statement: I reviewed the patient's lab results. 08/09/24 11:40 08/09/24 11:40 Labs: Lab Results 08/09/24 Range/Units 11:40 WBC 9.3 (4.8-10.8) X10*3/uL RBC 4.71 (4.20-5.50) X10*6/uL Hgb 12.2 (12.0-16.0) g/dl Hct 39.4 (37.0-47.0) % MCV 83.7 (80.0-98.0) fL MCH 25.9 L (27.0-33.0) pg MCHC 31.0 (31.0-35.0) g/dl RDW 14.8 (11.0-16.0) % Plt Count 382 (160-400) X10*3/uL MPV 9.6 (9.4-12.3) fL Immature Gran % (Auto) 0.3 (0.0-0.4) % Neut % (Auto) 52.7 (45-73) % Lymph % (Auto) 29.6 (20-40) % Mcdonald % (Auto) 12.9 H (2-11) % Eos % (Auto) 3.2 (0-4) % Baso % (Auto) 1.3 (0-2) % Lymph # (Auto) 2.7 (1.2-4.9) X10*3/uL Mcdonald # (Auto) 1.2 (0.1-1.2) X10*3/uL Eos # (Auto) 0.3 (0.0-0.4) X10*3/uL Baso # (Auto) 0.1 (0.0-0.2) X10*3/uL Abs Immat Gran (auto) 0.03 (0.00-0.03) X10*3/uL Absolute Neuts (auto) 4.9 (2.0-8.3) x10*3/uL Absolute Nucleated RBC 0.000 (0.0-0.012) X10*3/uL Nucleated RBC % (auto) 0.0 (0.0-0.2) /100WBC Sodium 139 (135-145) mmol/L Potassium 3.8 (3.3-5.1) mmol/L Chloride 108 (96-108) mmol/L Carbon Dioxide 27 (22-29) mmol/L Anion Gap 8 L (12-20) BUN 12 (9-16) mg/dL Creatinine 0.89 (0.5-1.4) mg/dL Estim Creat Clear Calc 100.3 Estimated GFR > 60 Random Glucose 101 (60-115) mg/dL Calcium 8.7 D (8.4-10.2) mg/dL Magnesium 2.2 (1.6-2.6) mg/dL Total Bilirubin 0.5 (0.0-1.0) mg/dL AST 37 H (5-31) U/L ALT 19 (0-31) U/L Alkaline Phosphatase 115 (39-117) U/L Troponin I High Sens < 2.7 D (<3.5-17.0) ng/L Total Protein 7.1 (6.5-8.0) g/dL Albumin 4.2 (3.5-5.0) g/dL Beta HCG, Quant < 2 mIU/mL Independent Interpretation I performed an independent interpretation of an: EKG and Plain X-Ray (normal ) Interpretation: Rate: 76 Rhythm: NSR [place]: normal, LVH Normal P waves. Normal ALLISON. Normal QRS complex. ST T wave : inverted t wave III, flat t wave aVF qTC: 423 prior studies: no acute ischemia The study has been interpreted contemporaneously by me. . Radiology Impression Discussion of test interpretation with radiology: I have reviewed the radiologist's reading. External Record Review External record reviewed: Inpatient record and Outpatient record Discharge Plan Discharge Clinical Impression: Atypical chest pain Patient Disposition: Home, Self-Care Instructions: Chest Wall Pain (ED), Chest Pain (ED) Additional Instructions: return for any worsening symptoms or concerns. follow up with your inspector elevators monitor your symptoms EKG no new changes, troponin negative x 2 chest xray normal Prescriptions: No Action aspirin [Adult Aspirin Regimen] 81 mg tablet,delayed release (DR/EC) 81 mg PO DAILY Qty: 90 3RF atorvastatin 80 mg tablet 80 mg PO BEDTIME Qty: 90 3RF clopidogrel 75 mg tablet 75 mg PO DAILY Qty: 90 3RF losartan 25 mg tablet 25 mg PO DAILY Qty: 90 3RF metformin 1,000 mg tablet 500 mg PO BEDTIME Jardiance 25 mg tablet 25 mg PO DAILY insulin glargine-yfgn [Semglee(insulin glarg-yfgn)Pen] 100 unit/mL (3 mL) insulin pen 32 unit subcut BEDTIME multivitamin Tablet 1 tab PO DAILY biotin 10 mg tablet 10 mg PO DAILY tirzepatide 10 mg/0.5 mL pen injector 10 mg SUBCUT TH metoprolol succinate 50 mg tablet extended release 24 hr 50 mg PO DAILY Stand Alone Forms: Work/School Release Print Language: Sinhala
[2024-08-09 11:46] LABS: MANUAL DIFF FLAG NO
[2024-08-09 11:48] LABS: Basophils Absolute Auto 0.1 X10*3/uL (0.0-0.2); Basophils Percent Auto 1.3 % (0-2); Eosinophils Absolute Auto 0.3 X10*3/uL (0.0-0.4); Eosinophils Percent Auto 3.2 % (0-4); Hematocrit 39.4 % (37.0-47.0); Hemoglobin 12.2 g/dl (12.0-16.0); Imm Gran Abs Auto 0.03 X10*3/uL (0.00-0.03); Imm Gran Pct Auto 0.3 % (0.0-0.4); Lymphocytes Absolute Auto 2.7 X10*3/uL (1.2-4.9); Lymphocytes Percent Auto 29.6 % (20-40); Mean Corpuscular Hemoglobin 25.9 pg (27.0-33.0); Mean Corpuscular Volume 83.7 fL (80.0-98.0); Mean Platelet Volume 9.6 fL (9.4-12.3); Monocytes Absolute Auto 1.2 X10*3/uL (0.1-1.2); Monocytes Percent Auto 12.9 % (2-11); Neutrophils Absolute Auto 4.9 x10*3/uL (2.0-8.3); Neutrophils Percent Auto 52.7 % (45-73); Platelet Count 382 X10*3/uL (160-400); Red Blood Count 4.71 X10*6/uL (4.20-5.50); Red Cell Distribution Width 14.8 % (11.0-16.0); White Blood Count 9.3 X10*3/uL (4.8-10.8)
[2024-08-09 12:17] LABS: Alanine Aminotransferase 19 U/L (0-31); Albumin Level 4.2 g/dL (3.5-5.0); Alkaline Phosphatase 115 U/L (39-117); Anion Gap 8 (12-20); Aspartate Amino Transferase 37 U/L (5-31); Bilirubin Total 0.5 mg/dL (0.0-1.0); Blood Urea Nitrogen 12 mg/dL (9-16); Calcium 8.7 mg/dL (8.4-10.2); Carbon Dioxide 27 mmol/L (22-29); Chloride 108 mmol/L (96-108); Creatinine Clr Calc Pharmacy 100.3; Estimated Glomerular Filt Rate > 60; Glucose Random 101 mg/dL (60-115); HCG Quantitative < 2 mIU/mL; Magnesium 2.2 mg/dL (1.6-2.6); Potassium 3.8 mmol/L (3.3-5.1); Sodium 139 mmol/L (135-145); Total Protein 7.1 g/dL (6.5-8.0); Troponin-I High Sensitivity < 2.7 ng/L (<3.5-17.0)
[2024-08-09 14:47] LABS: Troponin-I High Sensitivity < 2.7 ng/L (<3.5-17.0)
[2024-08-09 15:04] VITALS: BP 147/86; PULSE 77; RESP 18; TEMP 36.9; O2SAT 100
== END 2024-08-09 15:05 | disposition home or self-care (01) ==
PROVIDERS: Physician Assistant Medical; Emergency Provider Emergency Medicine; PCP Pediatrics
DX: R07.89 Other chest pain (principal); R10.2 Pelvic and perineal pain; E11.9 Type 2 diabetes mellitus without complications; Z79.4 Long term (current) use of insulin; Z79.899 Other long term (current) drug therapy
CPT/HCPCS: 36415; 71046; 80053; 83735; 84484; 84702; 85025; 93005; 99283

== ENCOUNTER → 2024-08-09 10:48 | Outpatient (BNV) | payer OTHER, SELFPAY | PROVIDERS: Emergency Provider Emergency Medicine; PCP Pediatrics; Visit Provider Internal Medicine Cardiovascular Disease | DX: R07.9 Chest pain, unspecified (principal); R94.31 Abnormal electrocardiogram [ECG] [EKG] | CPT/HCPCS: 93010 ==

== ENCOUNTER → 2024-08-09 11:26 | Outpatient (BNV) | payer OTHER, SELFPAY | PROVIDERS: PCP Pediatrics; Visit Provider Radiology Diagnostic Radiology | DX: R07.9 Chest pain, unspecified (principal) | CPT/HCPCS: 71046 ==

== ENCOUNTER 2024-11-24 08:16 | Outpatient (AMB) | payer OTHER, SELFPAY ==
[2024-11-24 08:19] VITALS: BP 120/74; PULSE 89; BMI 32.6
--- NOTE | 2024-11-24 08:19 | A.OFFVIS_ITS ---
Vital Signs 11/24/24 08:19 Height 5 ft 9 in Weight 220 lb 7.396 oz BMI 32.6 BP 120/74 Blood Pressure Location Lt brachial Position Sitting Pulse 89 Intake Visit Reasons: 1 yr f/up lipids Sept Intake Note: Follow-up has ekg in Jun feeling good Log Washer Required: No Allergies No Known Allergies [No Known Allergies*] Allergy (Verified 08/09/24 11:26) HPI Comments Details: Michelle comes for follow-up. She is currently doing well. She was in the emergency room in August with atypical chest pain ruled out. She was not had any recurrent symptoms. Currently managing her risk factors aggressively. She has improved diabetes. She is trying to exercise on a regular basis. Blood pressure is well controlled. LDL was well optimized. No exertional chest pain or shortness of breath. No orthopnea, PND, leg edema. No prolonged palpitation irregular heartbeat. PFSH Medical History Asthma Diabetes Surgical History Hx of hand surgery Hx of cardiac cath Family History Father CAD (coronary artery disease) Mother No problems noted. 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 Review of Systems Const Denies chills, Denies fatigue, Denies fever(s), Denies frequent falls, Denies weakness, Denies weight gain and Denies weight loss ENT Denies dizziness Card Denies chest pain, Denies leg edema, Denies lightheadedness, Denies palpitati ons, Denies dyspnea, Denies dyspnea on exertion, Denies orthopnea and Denies other (loss of consciousness) Resp Denies cough, Denies dyspnea and Denies dyspnea on exertion GI Denies hematochezia and Denies change in stool character Musc Denies abnormal gait, Denies muscle weakness, Denies numbness, Denies radiating pain into limb and Denies tingling Neuro Denies abnormal gait, Denies dizziness, Denies frequent falls, Denies numbness, Denies tingling and Denies weakness Endo Denies fatigue and Denies palpitations Physical Exam Vital Signs: Last Vital Signs Pulse 89 11/24/24 08:19 BP 120/74 11/24/24 08:19 BMI result Body Mass Index 32.6 Const General: cooperative, healthy appearing, comfortable and no acute distress Orientation/consciousness: patient oriented x3 Neck Neck: Yes normal visual inspection Resp Effort & Inspection: normal respiratory effort Auscultation: clear to auscultation bilaterally, no crackles, no rales, no rhonchi and no wheezes Cardio Jugular venous distension: no JVD Rate: regular rate Rhythm: regular rhythm Heart sounds: S1 normal heart sound present, S2 normal heart sound present, no murmurs and no rubs Neuro General: patient oriented x3 Extrem General: Yes normal to inspection, No no pedal edema and No calf tenderness Psych Appearance: grossly normal Mental Status: mental status grossly normal Speech and movement: Normal speech and movement present Office Procedures EKG Details: EKG shows normal sinus rhythm normal EKG. [id number], Complete Assessment & Plan Assessment & Plan (1) Spontaneous dissection of coronary artery: Code(s): I25.42 - Coronary artery dissection Category: Medical Plan: Prior history of SCAD with NSTEMI. Currently not having any active symptoms. Pathophysiology of SCAD was discussed with her. Continue aggressive medical therapy and aggressive risk factor modification. Can stop dual antiplatelet therapy and switch to low-dose aspirin therapy for now. (2) Coronary artery disease: Code(s): I25.10 - Atherosclerotic heart disease of [place] coronary artery without angina pectoris Category: Medical Plan: Mild CAD with multiple risk factors. Continue aggressive vascular risk factor modification. Low-dose aspirin therapy for life. Continue aggressive diabetes management goal hemoglobin A1c less than 7%. Encouraged to continue to participate in regular physical activity and persistent weight loss program. LDL was well optimized. Continue high-intensity statin therapy. Annual lipid check should be pursued. Will follow up in the clinic in 1 year's time, sooner p.r.n.. Thank you for allowing me to partake in her care Coding Level of Care Code Est Pt Level 4 (17155) Complex EM visit Add On G2211 Diagnoses Spontaneous dissection of coronary artery I25.42 Coronary artery disease I25.10 CPT Codes EKG - CPT: 64731-[id number], Complete ([id number])
--- OUTSIDE RECORDS SUMMARY | 2024-11-24 08:28 | XMS_ITS | Patient Health Record ---
Author Organization [facility] Address [address] [place] [address] Care Team Providers Care American Board Certified Orthotist Name Role Phone Nicholas Ardon MD Primary Care Provider Unavail able Jodi Delgadillo Unavailable [phone] Allergies No Known Allergies Results Component Value Reference Range Notes HEMOGLOBIN A1C (GLYCOHEMOGLO BIN) Reviewed date:04/12/2024 10:09:36 AM Interpretation: Performing Lab: Notes/Report: HEMOGLOBIN A1C (HH) 7.0 Reason For Referral No Information Medications Medication SIG (Take, Route, Frequency, Duration) Notes Start Date End Date Status Metoprolol Succinate ER 50 MG Oral for 90 Days Active Aspirin Low Dose 81 MG TAKE 1 TABLET BY MOUTH EVERY DAY Oral for 30 Days Activ e Jardiance 25 MG Oral for 90 Days Active Mounjaro 15 MG/0.5ML Subcutaneous for 28 Days Active Atorvastatin Calcium 80 MG TAKE 1 TABLET BY MOUTH AT BEDTIME Oral for 30 Days Active metFORMIN HCl 1000 MG Oral for 90 Days Active Immunizations Vaccine Route Administration Date Status Comme nts Influenza Unknown 06/07/2023 Administered Social History Tobacco Use: Social History Observation Description Date Details (start date - stop date) Never Smoker NA - NA Tobacco Use/Smoking Question Answer Notes Are you a: nonsmoker Additional Findings: Tobacco Non-User Current no n-smoker Alcohol Screen Question Answer Notes Did you have a drink containing alcohol in the p ast year? No Points 0 Interpretation Negative Tobacco use other than smoking: Question Answer Notes Are you an other tobacco user? No Problems Problem Type SNOMED Code ICD Code Onset Dates Problem Status W/U Status Risk Notes Problem [id number] Diabetes mellitu s without complication (E11.9) Active confirmed Vital Signs Height 5 ft 9 in in 04/12/2024 Weight 220 lbs 04/12/2024 BMI 32.48 kg/m2 04/12/2024 Encounters Encounter [facility] Date [facility] [address] [place] [address] [facility]/12/2024 Jodi Perica Ganglion of foot, right M67.471 ; Mucoid cyst, joint M67.40 and Diabetes mellitus without complication E11.9 [facility] [address] [place] [id number] 10/19/2024 Jodi Perica Assessments Encounter Date Diagnosis (ICD Code) Assessment Notes Treatment Notes Treatment Clinical Notes Section Notes 04/12/2024 Ganglion of foot, right (ICD-10 - M67.471) 04/12/2024 Mucoid cyst, joint (ICD-10 - M67.40) 04/12/2024 Diabetes mellitus without complication (ICD-10 - E11.9) Plan Of Treatment No Information Insurance Providers Payer Name Payer Address Payer Phone Subscriber Number Group Number Insured Name Patient Relationship to Insured Coverage Start Date Coverage End Date [employer] Benefits [address] [address] [place] [address] [id number] Colon, Michelle Self - patient is the insured Medical (General) History Medical History History ICD Code Diabetic Heart disease Chicken pox Surgical History Surgery Date(Month/Year) coronary artery dissection
--- OUTSIDE RECORDS SUMMARY | 2024-11-24 08:28 | XMS_ITS ---
Author Organization [facility] Address [address] [facility] [address] Care Team Providers Care Experimental Rocket Sled Mechanic Name Role Phone Nicholas Ardon MD Primary Care Provider Unavail able Jodi Delgadillo Unavailable [phone] REASON FOR VISIT bal payment Encounters Encounter Location Date Provider Diagnosis [facility] [address] [place] [phone] 10/19/2024 Jodi Delgadillo Plan Of Treatment No Information Progress Notes * Mukul MCALLISTEROB: 9 (44 yo F)Acc No.[id number]:10/19/2024 Patient:?Michelle MCALLISTER :1980???Age:44 Y???Sex:Female Address:[address] [place] [address], [facility] [place] [address] * true * Date:? Generated for Diana shpeherd/Diane/eTransmitting on:?11/24/2024 08:28 AM EDT
--- OUTSIDE RECORDS SUMMARY | 2024-11-24 08:28 | XMS_ITS ---
Author Organization [facility] Address [address] [place] [address] Care Team Providers Care Autocad Name Role Phone Nicholas Ardon MD Primary Care Provider Unavail able Jodi Delgadillo Unavailable [phone] Allergies No Known Allergies REASON FOR VISIT Pcp-08/29, Skin Problem Medications Medication SIG (Take, Route, Frequency, Duration) Notes Start Date End Date Status Metoprolol Succinate ER 50 MG Oral for 90 Days Active Aspirin Low Dose 81 MG TAKE 1 TABLET BY MOUTH EVERY DAY Oral for 30 Days Activ e Jardiance 25 MG Oral for 90 Days Active Mounjaro 15 MG/0.5ML Subcutaneous for 28 Days Active metFORMIN HCl 1000 MG Oral for 90 Days Active Atorvastatin Calcium 80 MG TAKE 1 TABLET BY MOUTH AT BEDTIME Oral for 30 Days Active Social History Tobacco Use: Social History Observation [...] Problem Status W/U Status Risk Notes Problem 852351430 Diabetes mellitu s without complication (E11.9) Active confirmed Vital Signs Height 5 ft 9 in in 04/12/2024 Weight 220 lbs 04/12/2024 BMI 32.48 kg/m2 04/12/2024 Encounters Encounter Location Date Provider Diagnosis [facility] [address] [place] [address] 04/12/2024 Jodi Delgadillo Ganglion of foot, right M67.471 ; Mucoid cyst, joint M67.40 and Diabetes mellitus without complication E11.9 Assessments Encounter Date Diagnosis (ICD Code) Assessment Notes Treatment Notes Treatment Clinical Notes Section Notes 04/12/2024 Ganglion of foot, right (ICD-10 - M67.471) 04/12/2024 Mucoid cyst, joint (ICD-10 - M67.40) 04/12/2024 Diabetes mellitus without complication (ICD-10 - E11.9) Plan Of Treatment Next Appt Details Follow Up: prn, Reason: Progress Notes * Mukul MCALLISTEROB: 9 (44 yo F)Acc No.[id number]:04/12/2024 Progress Notes Patient:?Michelle MCALLISTER Provider:?Jodi Delgadillo DPM :1980???Age:43 Y???Sex:Female D ate:04/12/2024 Address:[address] [place], [place] [id number] Pcp:Nicholas Ardon MD Subjective: * Chief Complaints: * ???Pcp-08/29samuel Problem * HPI: ???Skin problems:?Nature:?cyst.?Location:?Right , 2nd , Toe(s).?Duration:?several years.?Course:?recurrent.?Aggravated by:?shoe gear.?Treatments:?Pt states she saw another laboratory scientist who injected the cyst.? * ROS:?General/Constitutional:?Nausea?denies.?Vomiting?denies.?Hunger Thirst?denies.?Loss appetite?denies.?Chills?denies.?Fatigue?denies.?Fever?denies.?Night Sweats?denies.?Unexplained weight loss?denies.?Unexplained weight gain?denies.?HEENTM:?Dentures?denies.?Dizziness?denies.?Glasses/contacts?denies.?Retinopathy?de nies.?Blurred/double vision?denies.?TMJ?denies.?Discharge/drainage?denies.?Implants?denies.?Sore throat?denies.?Dental implants?denies.?Hard of hearing ?denies.?Difficulty chewing/swallowing/speaking?denies.?Nose bleeds?denies.?Sore mouth?denies.?Respiratory:?On Oxygen?denies.?Pneumonia/pleurisy?denies.?Bronchitis?denies.?Emphysema?denies.?C oughing?denies.?Cough blood?denies.?Shortness of breath?denies.?Wheezing?denies.?Cardiovascular:?Pacemaker?denies.?MVP?denies.?WPW?denies.?CHF?denies.?Heart attack?denies.?Septal defect?denies.?Rapid beat?denies.?Chest pain ?denies.?Atrial Fib.?denies.?Murmur/Palpitations?denies.?Gastrointestinal:?Hemorrhoids?denies.?Stomach/Abdominal pain?denies.?Dark blood stool?denies.?Irritable bowel ?denies.?Constipation?denies.?Diarrhea?denies.?Hematology:?Swelling?denies.?Clots?denies.?Varicose Veins?denies.?Bruising?denies.?Bleeding problem?denies.?Genitourinary:?Blood urine?denies.?Frequent/Painfu/urination/bladder control?denies.?Kidney stones?denies.?Infection (UTI)?denies.?Nephropathy?denies.?sex trans dis (STD)?denies.?Prostate?denies.?Musculoskeletal:?Hammertoes?denies.?Bunions?denies.?Back Pain?denies.?Muscle Cramps/ Resting?denies.?Muscle cramps / walking?denies.?Generalized aches and pains?denies.?Weakness?denies.?Integ.:?Magana?denies.?Scars?denies.?Corns/calluses?denies.?Ingrown nails?denies.?Painful nails?denies.?Open Sores?denies.?Rashes?denies.?Neurologic:?Difficulty sleeping?denies.?Brain disorder?denies.?Numbness?denies.?Balance trouble?denies.?Confusion?denies.?Fainting/blackouts?denies.?Tingling?denies.?Tr emors?denies.? * Medical History:? * Surgical History:?coronary a rtery dissection * Hospitalization/Major Diagno stic Procedure:?Denies Past Hospitalization * Family History:?Mother: jesus garcia?Father: , kidney/liver diseaseheart attackpoor circulation, diagnosed with Diabetic - NIDDM.?Paternal Grand Mother: stroke.? * Social History:?Tobacco Use:?Tobacco Use/Smoking?Are you a:?nonsmoker ?Additional Findings: Tobacco Non-User?Current non-smoker ?Tobacco use other than smoking?Are you an other tobacco user??No ???Drugs/Alcohol:?Drugs?Have you used drugs other than those for medical reasons in the past 12 months??No ?Alcohol Screen?Did you have a drink containing alcohol in the past year??No ?Points?0 ?Interpretation?Negative ???Miscellaneous:?Caffeine: yes, frequency:, 1-2 cups per day. ?Children: yes, 1. ?Exercise: no. ?Marital status: single. ?Occupation: occupational therapist. * Medications:?TakingJardiance 25 MG Tablet Oral Metoprolol Succinate ER 50 MG Tablet Extended Release 24 Hour Oral Aspirin Low Dose 81 MG Tablet Delayed Release TAKE 1 TABLET BY MOUTH EVERY DAY Oral Atorvastatin Calcium 80 MG Tablet TAKE 1 TABLET BY MOUTH AT BEDTIME Oral metFORMIN HCl 1000 MG Tablet Oral Mounjaro 15 MG/0.5ML Solution Pen-injector Subcutaneous Medication List reviewed and reconciled with the patientTaking Jardiance 25 MG Tablet Oral Taking Metoprolol Succinate ER 50 MG Tablet Extended Release 24 Hour Oral Taking Aspirin Low Dose 81 MG Tablet Delayed Release TAKE 1 TABLET BY MOUTH EVERY DAY Oral Taking Atorvastatin Calcium 80 MG Tablet TAKE 1 TABLET BY MOUTH AT BEDTIME Oral Taking metFORMIN HCl 1000 MG Tablet Oral Taking Mounjaro 15 MG/0.5ML Solution Pen-injector Subcutaneous Medication List reviewed and reconciled with the patient * Allergies:?N.K.D.A.yes[Aller gies Verified] Objective: * Vitals:?Ht: 5 ft 9 in, Wt:22 0, BMI:32.48, Shoe size: 9, BS: not taken, Ht-cm: 175.26 cm, Wt-k.79 kg. * ???Past Orders: ???Lab:HEMOGLOBIN A1C (GLYCO HEMOGLOBIN) (Order Date - 04/12/2024) (Collection Date & Time - 04/12/2024 10:09 AM) ? Value Reference Range ?HEMOGLOBIN A1C (HH) 7.0 * Examination: ???Ophthalmology Referral: ?DIABETES EYE EXAM?Diabetic Retinopathy Screening:?Yes ?Findings of Diabetic Eye Exam:?no retinopathy?General Examination: ?GENERAL APPEARANCE:?Reveals a pleasant, alert, well-nourished, well- developed, well hydrated individual, who demonstrates proper attention to hygiene/body habitus, and is in no acute distress, Pt serves as own?historian for office visit today.?ORIENTED:?person, place, and time.?FOOT EXAM:?Lower Extremity Neurological Exam performed:?Yes ?Visual exam of foot performed:?Yes ?Date?04/12/2024 ?Footwear Evaluation?Footwear Evaluation performed:?Yes?Neurological: ?SENSORY:?Neurological exam reveals intact sensorium, pain sensation normal, vibration sensation intact, pinprick sensation is normal in the lower extremities, Pt denies, anesthesia, burning, paresthesia, tingling, B/L.?DEEP TENDON REFLEXES:?Achilles, 2/4, B/L.?Vascular: ?DP PULSES (B):?3/4, B/L.?PT PULSES (B):?3/4, B/L.?CAPILLARY FILL TIME:?immediate, all digits, B/L.?TROPHIC CONDITION-TEXTURE/ELASTICITY/TURGOR/HAIR GROWTH (B):?normal, B/L.?TEMPERTURE GRADIENT (C):?warm to cool, proximal to distal, B/L.?PIGMENTATION:?normal, B/L.?EDEMA (C):?absent, B/L.?Dermatologic: ?SKIN FINDINGS:?Skin shows sign(s) of, a semi-firm, painful, non- translucent, non-pulsatile, nonmobile Sub Q tumor efrem. 4 x 4 x 4 mm distal DIPJ T6 at proximal nail fold.?Orthopedic: ?MUSCLE STRENGTH:?5/5 all groups in a symmetrical fashion , B/L.?FOOTWEAR:?fair condition.?Nails: ?NAILS are:?dystrophy T6.? Assessment: * Assessment: 1.?Ganglion of foot, right - M67.471???2.?Mucoid cyst, joint - M67.40 (Primary)???3.?Diabetes mellitus without complication - E11.9??? Plan: * Treatment: * Procedure Codes:? * Preventive Medicine:? ??Counseling:?Discussion:?-04: Office or other outpatient visit for the evaluation and management of a new patient, which required a medically appropriate history and/or examination and MODERATE level of DECISION MAKING for: 1 OR MORE CHRONIC PROBLEM(S) THATS WORSENING, 2 STABLE CHRONIC PROBLEMS, A NEWLY DIAGNOSED PROBLEM WITH UNCERTAIN PROGNOSIS, AN ACUTE COMPLICATED INJURY WITH MULTIPLE TREATMENT OPTIONS, OR AN ACUTE PROBLEM WITH ACCOMPANYING SYSTEMIC SYMPTOMS, THAT POSE(S) A MODERATE RISK OF MORBIDITY. THIS CONDITION MAY ALSO INCLUDE RX DRUG MANAGEMENT, OR A DECISON FOR MINOR SURGERY. The visit on the day of the encounter encompassed interpreting the data and educating the patient as to the nature of their condition, treatment options available according to their individual PMH, meds, allergies, and overall health/living conditions, as well as any potential risks or complications that may occur from a failure to adhere to, and participate in, the recommended course of therapy. The discussion included a complete verbal, and/or written explanation of the examination results, any x-rays taken, the proposed diagnosis, and outline of the treatment plan. A schedule for future care needs was also explained. The patient verbalized an understanding of the instructions at this time and agreed to be an active participant in their treatment. If the patient should think of any questions or concerns after the visit, I have encouraged the patient to call the office.?Ganglions:?The patient was counseled on the diagnosis, potential etiologies, and treatment options for their Ganglion condition. We discussed the risks and benefits of each option from performing no treatment, accomidative padding, aspiration, cortisone injection therapy, and surgical excision. We discussed the advantages and disadvantages of each possible treatment and importance for adherence to all the recommended therapies for optimum success and avoid potential complications such as open sore/infection/possible hospitalization. We discussed the potential effectiveness of each treatment as well as the potential complications including: pain, infection, and recurrence, and in the case of excision surgery: scarring, chronic pain, nerve damage resulting in permanent numbness, and recurrence. Patient questions re: successful outcomes for each treatment option, and the patient verbalized that all answers were clearly understood.?Podiatric Surgery Counseling:?Surgical procedures to treat the patients foot problem were discussed. We reviewed the risks of the procedure (described below) vs not having the procedure (persistent pain, deformity, risk for skin ulceration/infection, loss of toe). We discussed the potential procedure complications including, but not limited to: pain, swelling, bleeding, scarring, numbness, infection, delayed/non healing, floppy/unstable/shorthened toe, recurrence, failure of the procedure, overcorrection leading to plantarflexed/downward positioned toe, recurrence, need for further surgery, as well as the possibility for loss of the toe itself. We discussed the use of IV/Local anesthesia, and the usual post-op course for healing. No guarentees were given. The patient verbally indicated a full understanding of the above conversation, and any other of their questions were answered to their satisfaction, Pt deferred any surgery at the present time.? ??Screening/Special Tests:?Fall Risk?Assessment:?Performed ?Screening:?No falls in the past year ?FALLS: Screening for Future Fall Risk?Have you had two or more falls in the past year??No ?Have you had any falls with injury in the past year??No * Follow Up:?prn * Images: * Sign off status: Completed true * Provider:?Jodi Delgadillo DPM Date:?02/2024 Generated for Diana shepherd/Diane/Elizabeth on:?11/24/2024 08:28 AM EDT History and Physical Notes * HPI (History of Present Illness) Category Sub-Category Detail Notes Category Not es Skin problems Nature: cyst Location: Right , 2nd , Toe(s) Duration: several years Course: recurrent Aggravated by: shoe gear Treatments: Pt states she saw an other laboratory scientist who injected the cyst Examination Category Sub-Category Detail Notes Category Not es Neurological SENSORY: Neurological exa m reveals intact sensorium, pain sensation normal, vibration sensation intact, pinprick sensation is normal in the lower extremities, Pt denies, anesthesia, burning, paresthesia, tingling, B/L DEEP TENDON REFLEXES: Achilles, 2/4, B/L Dermatologic SKIN FINDINGS: Skin shows sign( s) of, a semi-firm, painful, non-translucent, non-pulsatile, nonmobile Sub Q tumor efrem. 4 x 4 x 4 mm distal DIPJ T6 at proximal nail fold Orthopedic FOOTWEAR: fair condition MUSCLE STRENGTH: 5/5 all groups in a symmetrical fashion , B/L General Examination GENERAL APPEARANCE: Reveals a pleasant, alert, well- nourished, well-developed, well hydrated individual, who demonstrates proper attention to hygiene/body habitus, and is in no acute distress, Pt serves as own historian for office visit today FOOT EXAM: Lower Extremity Neurological Exa m performed:: Yes Visual exam of foot performed:: Yes Date: 04/12/2024 ORIENTED: person, place, and t dre Footwear Evaluation Footwear Evaluation performe d:: Yes Ophthalmology Referral DIABETES EYE EXAM Diabetic Retinopa thy Screening:: Yes Findings of Diabetic Eye Exam:: no retin opathy Vascular DP PULSES (B): 3/4, B/L PT PULSES (B): 3/4, B/L CAPILLARY FILL TIME: immediate, all digi ts, B/L TEMPERTURE GRADIENT (C): warm to cool, p roximal to distal, B/L TROPHIC CONDITION-TEXTURE/ELASTICITY/TURGOR/HAIR GROWTH (B): normal, B/L EDEMA (C): absent, B/L PIGMENTATION: normal, B/L Nails NAILS are: dystrophy T6
== END 2024-11-24 08:51 | disposition home or self-care (01) ==
LOC: HO.HCS 08:17
PROVIDERS: PCP Pediatrics; Visit Provider Internal Medicine Cardiovascular Disease
DX: I25.42 Coronary artery dissection (principal); I25.10 Atherosclerotic heart disease of native coronary artery without angina pectoris
CPT/HCPCS: 93010; 99214

== ENCOUNTER → 2024-11-24 08:16 | Outpatient (BNVA) | payer OTHER, SELFPAY | PROVIDERS: PCP Pediatrics; Visit Provider Internal Medicine Cardiovascular Disease | DX: I25.42 Coronary artery dissection (principal); I25.10 Atherosclerotic heart disease of native coronary artery without angina pectoris | CPT/HCPCS: 93005 ==

== ENCOUNTER 2025-01-18 14:14 | Outpatient (AMB) | payer OTHER, SELFPAY ==
[2024-12-27 13:00] VITALS: BP 112/64; BP 140/80; BMI 33.0
--- OUTSIDE RECORDS SUMMARY | 2025-01-18 14:16 | XMS_ITS ---
Author Organization [facility] Address [address] [place] [address] Care Team Providers Care Director Of Labor Relations Name Role Phone Nicholas Ardon MD Primary Care Provider Unavail able Jodi Delgadillo Unavailable [phone] Allergies No Known Allergies REASON FOR VISIT [...] Problem Status W/U Status Risk Notes Problem [id number] Diabetes mellitu s without complication (E11.9) Active confirmed Vital Signs Height 5 ft 9 in in 04/12/2024 Weight 220 lbs 04/12/2024 BMI 32.48 kg/m2 04/12/2024 Encounters Encounter Location Date Provider Diagnosis [facility] [address] [place] [address] 04/12/2024 Jodi Delgadillo Ganglion of foot, right [...] * Mukul MCALLISTEROB: 9 (44 yo F)Acc No.[id number]:04/12/2024 Progress Notes Patient:?Michelle MCALLISTER Provider:?Jodi Delgadillo DPM :1980???Age:43 Y???Sex:Female D ate:04/12/2024 Address:[address] [place], [place] [id number] Pcp:Nicholas Ardon MD Subjective: * Chief Complaints: * ???Pcp-08/29samuel Problem * HPI: ???Skin problems:?Nature:?cyst.?Location:?Right , 2nd , Toe(s).?Duration:?several years.?Course:?recurrent.?Aggravated by:?shoe gear.?Treatments:?Pt states she saw another lap layer who injected the cyst.? * ROS:?General/Constitutional:?Nausea?denies.?Vomiting?denies.?Hunger Thirst?denies.?Loss [...] Delgadillo DPM Date:?02/2024 Generated for Diana shepherd/Diane/Elizabeth on:?01/18/2025 02:16 PM EDT History and Physical Notes * HPI (History of Present Illness) Category Sub-Category Detail Notes Category Not es Skin problems Nature: cyst Location: Right , 2nd , Toe(s) Duration: several years Course: recurrent Aggravated by: shoe gear Treatments: Pt states she saw an other lap layer who injected the cyst Examination Category Sub-Category [...] DIPJ T6 at proximal nail fold Orthopedic FOOTWEAR EVALUATION: fair condition MUSCLE STRENGTH: 5/5 all groups [...]
--- OUTSIDE RECORDS SUMMARY | 2025-01-18 14:17 | XMS_ITS ---
Author Organization [facility] Address [address] [facility] [place] [address] Care Team Providers Care Homemaking Rehabilitation Consultant Name Role Phone Nicholas Ardon MD Primary Care Provider Unavail able oJdi Delgadillo Unavailable [phone] REASON FOR VISIT bal payment Encounters Encounter Location Date Provider Diagnosis [facility] [address] [place] [phone] 10/19/2024 Jodi Delgadillo Plan Of Treatment No Information Progress Notes * Mukul MCALLISTEROB: 9 (44 yo F)Acc No.[id number]:10/19/2024 Patient:?Michelle MCALLISTER :1980???Age:44 Y???Sex:Female Address:[address] [place] [address], [facility] [place] [address] * true * Date:? Generated for Diana shepherd/Diane/eTransmitting on:?01/18/2025 02:16 PM EDT
--- OUTSIDE RECORDS SUMMARY | 2025-01-18 14:17 | XMS_ITS | Patient Health Record ---
Author Organization [facility] Address [address] [place] [address] Care Team Providers Care Ship Rigger Name Role Phone Nicholas Ardon MD Primary Care Provider Unavail able Jodi Delgadillo Unavailable [phone] Allergies No Known Allergies Results Component Value [...] Problem Status W/U Status Risk Notes Problem [id number] Diabetes mellitu s without complication (E11.9) Active confirmed Vital Signs Height 5 ft 9 in in 04/12/2024 Weight 220 lbs 04/12/2024 BMI 32.48 kg/m2 04/12/2024 Encounters Encounter [facility] Date [facility] [address] [place] [address] 04/12/2024 Jodi Perica Ganglion of foot, right M67.471 ; Mucoid cyst, joint M67.40 and Diabetes mellitus without complication E11.9 [facility] [address] [place] [phone] 10/19/2024 Jodi Perica Assessments Encounter Date Diagnosis [...] Coverage End Date [employer] Benefits [address] [address] [place] [address] [id number] Colon, Michelle Self - patient is the insured Medical (General) History Medical History History ICD Code Diabetic Heart disease Chicken pox Surgical History Surgery Date(Month/Year) coronary artery dissection
--- NOTE | 2025-01-18 14:19 | MHC.OFFVIS ---
Vital Signs 01/18/25 14:22 Height 5 ft 9 in Weight 220 lb BMI 32.5 Intake Visit Reasons: New prob-Left hand Flare up/ pain Intake Note: Michelle 44 yr old right hand dominant female presents today for a new problem visit for her left hand. States she is having numbness at base of her palm and a shooting pain from her volar aspect of wrist to her palm that states about 1 month ago. States her hand goes completely numb at night time and is having numbness on her thenar muscle area. States she has tried braces but D/C due to uncomfortable to sleep. Hx of left thumb trigger release 03/2023. No EMG done. Allergies No Known Allergies [No Known Allergies*] Allergy (Verified 01/18/25 14:24) HPI HPI New prob-Left hand Flare up/ pain: Details: Michelle is a 44 year old right hand dominant woman who presents with complaints of left hand numbness. She works at [employer] in [place]. She complains of numbness & pain in her left hand. She complains of numbness in her left wrist, extending into her palm throughout the day, as well as a shooting pain from her volar wrist into her palm, worse with wrist motion. She reports having dense numbness in all digits of her left hand at night, but this improves throughout the day. She also complains of numbness in her right hand at night. She denies any numbness in her right hand throughout the day. She also complains of painful locking of her right ring finger. She says this is not as bad as her left thumb was prior to surgery She has tried bracing but discontinued as they were uncomfortable to sleep in. She denies any other treatment options, and denies compelting a NCS. She has a Hx of left trigger thumb release, DOS: 04/02/23. She had good relief of her symptoms. [facility] Medical History Asthma Diabetes Surgical History Hx of hand surgery Hx of cardiac cath Family History Father CAD (coronary artery disease) Mother No problems noted. 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 Review of Systems Const All systems reviewed & are unremarkable except as noted in HPI and below Physical Exam Vital Signs: BMI result Body Mass Index 32.5 Const General: cooperative, healthy appearing and no acute distress Orientation/consciousness: patient oriented x3 HEENT Head: Yes normocephalic and Yes atraumatic Eyes EOM: EOMs intact bilaterally Resp Effort & Inspection: normal respiratory effort and able to speak in complete sentences Cardio Jugular venous distension: no JVD Skin General skin exam: turgor normal Rashes: no rashes Neuro General: patient oriented x3 Extrem Other: Evaluation of Bilateral Upper Extremity: The patient is alert, oriented, and in no acute distress Neuro: Dense numbness over the left carpal tunnel, extending into the thenar mass. Normal sensation to all digits bilaterally No thenar or intrinsic wasting Good APB muscle belly firing and good finger cross Vascular: Cap refill brisk ROM: She can make a fist and extend all her digits Visible & palpable locking & catching of the right ring finger Tender over the right ring finger a1 yoselin Skin: No lacerations or abrasions. General: No Ecchymosis. No Erythema or evidence of infection. Psych Appearance: grossly normal Affect: normal affect Attitude: cooperative Office Procedures AMB Fracture Care Details: No fracture, injection Fracture Billing Code: Fracture Billing Code Assessment & Plan Assessment & Plan (1) Bilateral hand numbness: Code(s): R20.0 - Anesthesia of skin Category: Medical (2) Trigger finger, right ring finger: Code(s): M65.341 - Trigger finger, right ring finger Category: Medical (3) Diabetes: Code(s): E11.9 - Type 2 diabetes mellitus without complications Category: Medical Plan Assessment & Plan: 1. Left hand numbness Symptoms intermittent, in all digits, primarily at night Dense numbness in thenar mass throughout the day This is her chief complaint today 2. Right hand numbness Symptoms intermittent, in all digits, primarily at night I educated her about carpal & cubital tunnel syndrome I ordered a NCS to assess for peripheral nerve compression She will follow up when completed for review 3. Right ring finger trigger finger Injection #1: The risks and benefits of a steroid injection including but not limited to risk of damage to blood vessels, nerves, tendons, infection, skin bleaching, failure to improve symptoms, increased pain, and possible need for further injections or other intervention were discussed with the patient and the patient wishes to proceed with the steroid injection. Once consent was obtained, I sterilely prepped the area over the A1 yoselin of the flexor tendon sheath of the Right ring finger. I then injected the flexor tendon sheath with a combination of 1 mL of dexamethasone (4mg/ml), and 1% lidocaine. The patient tolerated the procedure well with no complications. If the patient continues to have locking and catching 4-6 weeks following this injection, they may call to schedule appointment to discuss alternative treatment options 4. Left trigger thumb, S/P release DOS: 06/03/23 Resolved Scribed for Samantha Slater MD by Dequan Murphy, certified medical coding specialist, on 01/18/25 at 2:35 PM, EST. Orders: Orders NE electromyogram (EMG) Today R20.0 - Anesthesia of skin, R20.2 - Paresthesia of skin NE nerve conduction velocity Today R20.0 - Anesthesia of skin, R20.2 - Paresthesia of skin Scribe Plan - Not visible on output: Scribed for Samantha Slater MD by cal Leon scribe, on [ ] at [ ], EST. Coding Level of Care Code Est Pt Level 3 (02437) Diagnoses Bilateral hand numbness R20.0 Trigger finger, right ring finger M65.341 Diabetes E11.9 CPT Codes Fracture Care - Fracture Billing Code: Fracture Billing Code ([id number])
[2025-01-18 14:22] VITALS: BMI 32.5
== END 2025-01-18 14:53 | disposition home or self-care (01) ==
LOC: HO.HOS 14:14
PROVIDERS: PCP Pediatrics; Visit Provider Orthopaedic Surgery
DX: R20.0 Anesthesia of skin (principal); M65.341 Trigger finger, right ring finger; E11.9 Type 2 diabetes mellitus without complications
CPT/HCPCS: 20550; 99213

== ENCOUNTER → 2025-01-18 14:14 | Outpatient (BNVA) | payer OTHER, SELFPAY ==
[2024-12-27 13:00] VITALS: BP 112/64; BP 140/80; BMI 33.0
== END ==
PROVIDERS: PCP Pediatrics; Visit Provider Orthopaedic Surgery
DX: R20.0 Anesthesia of skin (principal); M65.341 Trigger finger, right ring finger; E11.9 Type 2 diabetes mellitus without complications
CPT/HCPCS: 20550; J1100; J2003

== ENCOUNTER 2025-03-01 09:26 | Outpatient (REF) | payer OTHER, SELFPAY ==
[2024-12-27 13:00] VITALS: BP 112/64; BP 140/80; BMI 33.0
--- NOTE | 2025-03-01 09:28 | EMG_ITS ---
Chief complaint: Bilateral hand numbness Reason for referral: Evaluate for Carpal Tunnel Syndrome Referred by: Dr. Slater Procedure done: Bilateral upper extremities NCS/EMG Precautions and/or limitations: None The limb temperature was monitored continuously and remained between 32-36 degrees C during the performance of the NCS. Nerve Conduction Studies Anti Sensory Summary Table ?Stim Site NR Onset (ms) Norm Onset (ms) Peak (ms) Norm Peak (ms) O-P Amp (?V) Norm O-P Amp Site1 Site2 Delta-0 (ms) Dist (cm) Joe (m/s) Norm Joe (m/s) Left Median Anti Sensory (2nd Digit) Wrist NR <3.6 >10 Wrist 2nd Digit 14.0 Right Median Anti Sensory (2nd Digit) Wrist NR <3.6 >10 Wrist 2nd Digit 14.0 Left Radial Anti Sensory (Thumb) Forearm ? 2.1 2.5 <3.1 8.9 Forearm Thumb 2.1 0.0 Left Ulnar Anti Sensory (5th Digit) Wrist ? 2.3 3.2 <3.7 14.8 >15.0 Wrist 5th Digit 2.3 14.0 61 Right Ulnar Anti Sensory (5th Digit) Wrist ? 1.1 3.3 <3.7 19.7 >15.0 Wrist 5th Digit 1.1 14.0 127 Motor Summary Table ?Stim Site NR Onset (ms) Norm Onset (ms) O-P Amp (mV) Norm O-P Amp iAmp (mV) Amp (1st) (%) Site1 Site2 Delta-0 (ms) Dist (cm) Joe (m/s) Norm Joe (m/s) Left Median Motor (Abd Poll Brev) Wrist ? 7.9 <3.9 12.2 >4.5 15.6 100.0 Elbow Wrist 5.1 23.0 45 >45 Elbow ? 13.0 10.9 13.6 89.3 Right Median Motor (Abd Poll Brev) Wrist ? 7.0 <3.9 14.0 >4.5 18.6 100.0 Elbow Wrist 4.7 13.0 28 >45 Elbow ? 11.7 12.5 15.6 89.3 Left Ulnar Motor (Abd Dig Minimi) Wrist ? 2.9 <3.0 11.1 >5 13.6 100.0 B Elbow Wrist 3.8 21.0 55 >45 B Elbow ? 6.7 11.5 14.4 103.6 A Elbow B Elbow 1.9 10.0 53 >45 A Elbow ? 8.6 10.2 12.8 91.9 Right Ulnar Motor (Abd Dig Minimi) Wrist ? 2.7 <3.0 11.6 >5 14.6 100.0 B Elbow Wrist 4.0 20.0 50 >45 B Elbow ? 6.7 11.3 14.4 97.4 A Elbow B Elbow 1.3 10.0 77 >45 A Elbow ? 8.0 11.1 14.2 95.7 EMG ?Side Muscle Nerve Root Ins Act Fibs Psw Amp Dur Poly Recrt Int Pat Comment Right 1stDorInt Ulnar C8-T1 Nml Nml Nml Nml Nml 0 Nml Complete Right FlexCarRad Median C6-7 Nml Nml Nml Nml Nml 0 Nml Complete Right Biceps Musculocut C5-6 Nml Nml Nml Nml Nml 0 Nml Complete Right Triceps Radial C6-7-8 Nml Nml Nml Nml Nml 0 Nml Complete Right Deltoid Axillary C5-6 Nml Nml Nml Nml Nml 0 Nml Complete Left 1stDorInt Ulnar C8-T1 Nml Nml Nml Nml Nml 0 Nml Complete Left FlexCarRad Median C6-7 Nml Nml Nml Nml Nml 0 Nml Complete Left Biceps Musculocut C5-6 Nml Nml Nml Nml Nml 0 Nml Complete Left Triceps Radial C6-7-8 Nml Nml Nml Nml Nml 0 Nml Complete Left Deltoid Axillary C5-6 Nml Nml Nml Nml Nml 0 Nml Complete FINDINGS: Left median motor nerve showed prolonged distal latency, normal amplitude and normal conduction velocity. Right median motor nerve showed prolonged distal latency, normal amplitude and slow conduction velocity. Bilateral median sensory nerves showed absent response. All other nerves tested were within normal. Concentric needle EMG was performed in selected muscles of the bilateral upper extremities. Study did not reveal signs of electric abnormalities as shown in the table above. IMPRESSION: 1. This is an abnormal study. 2. There is electrodiagnostic evidence for bilateral moderate-severe median neuropathy at the wrist, consistent with carpal tunnel syndrome. 3. There is no electrodiagnostic evidence for ulnar neuropathy, brachial plexopathy, or cervical radiculopathy. Thank you for your kind referral. Aleena Paulson MD, RITO Board Certified, [place] Board [employer] and Rehabilitation (ABPMR) Board Certified, [place] Board of Electrodiagnostic Medicine (ABEM) CODIN [phone] MTDD
--- OUTSIDE RECORDS SUMMARY | 2025-03-01 10:24 | XMS_ITS | Patient Health Record ---
Author Organization [facility] Address [address] [place] [address] Care Team Providers Care Supervisor Insecticide Name Role Phone Nicholas Ardon MD Primary Care Provider Unavail able Jodi Delgadillo Unavailable [phone] Allergies No Known Allergies Results Component Value [...] Problem Status W/U Status Risk Notes Problem [id number] Diabetes mellitu s without complication (E11.9) Active confirmed Vital Signs Height 5 ft 9 in in 04/12/2024 Weight 220 lbs 04/12/2024 BMI 32.48 kg/m2 04/12/2024 Encounters Encounter Location Date [facility] [address] [place] [address] 04/12/2024 Jodi Perica Ganglion of foot, right M67.471 ; Mucoid cyst, joint M67.40 and Diabetes mellitus without complication E11.9 [facility] [address] [place] [id number] 10/19/2024 Jodi Perica Assessments Encounter Date Diagnosis [...] Coverage End Date [employer] Benefits [address] [address] [place] [address] [id number] Colon, Michelle Self - patient is the insured Medical (General) History Medical History History ICD Code Diabetic Heart disease Chicken pox Surgical History Surgery Date(Month/Year) coronary artery dissection
== END 2025-03-01 09:27 | disposition home or self-care (01) ==
LOC: HO.NEURO 09:26
PROVIDERS: Visit Provider Orthopaedic Surgery
DX: R20.0 Anesthesia of skin (principal); R20.2 Paresthesia of skin
CPT/HCPCS: 95886; 95911

== ENCOUNTER → 2025-03-01 09:28 | Outpatient (BNV) | payer OTHER, SELFPAY ==
[2024-12-27 13:00] VITALS: BP 112/64; BP 140/80; BMI 33.0
== END ==
PROVIDERS: Visit Provider Physical Medicine & Rehabilitation
DX: G56.03 Carpal tunnel syndrome, bilateral upper limbs (principal)
CPT/HCPCS: 95886; 95911

== ENCOUNTER 2025-04-11 10:17 | Outpatient (AMB) | payer OTHER, SELFPAY ==
[2024-12-27 13:00] VITALS: BP 112/64; BP 140/80; BMI 33.0
[2025-04-11 10:30] VITALS: BMI 32.5
--- NOTE | 2025-04-11 10:30 | MHC.OFFVIS ---
Vital Signs 04/11/25 10:30 Height 5 ft 9 in Weight 220 lb BMI 32.5 Intake Visit Reasons: OV- B/L hand EMG review Intake Note: Michelle 44 yr old female presents today for her EMG review for bilateral hands. States she would like to have carpal tunnel release on her right hand first. Patient is not sure of her A1C but has an upcoming appointment with pcp. IMPRESSION: 1. This is an abnormal study. 2. There is electrodiagnostic evidence for bilateral moderate-severe median neuropathy at the wrist, consistent with carpal tunnel syndrome. 3. There is no electrodiagnostic evidence for ulnar neuropathy, brachial plexopathy, or cervical radiculopathy. Allergies No Known Allergies (No Known Allergies*) Allergy (Verified 04/11/25 10:41) HPI HPI OV- B/L hand EMG review: Details: Michelle is a 44 year old right hand dominant woman who presents with complaints of bilateral hand numbness and tingling, and she is status post her nerve conduction study. She works at [employer] in [place]. She complains of numbness tingling and pain in both hands that is worse at night and with activities. Left worse than right She also complains of painful locking of her right ring finger. She has tried bracing but discontinued as they were uncomfortable to sleep in. She has a Hx of left trigger thumb release, DOS: 04/02/23. She had good relief of her symptoms. [facility] Medical History Asthma Diabetes Surgical History Hx of hand surgery Hx of cardiac cath Family History Father CAD (coronary artery disease) Mother No problems noted. 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 The dense numbness she had over the left thenar mass has improved. She does have decreased sensation in the median nerve distribution of her left hand when compared to her normal left small finger. More normal sensation to the digits of her right hand No intrinsic or thenar wasting. Good APB muscle belly firing and good finger cross. Cap refill brisk She can make a fist and extend all of her digits. She does have visible palpable locking and catching of the right ring finger in his tender over the right ring finger A1 yoselin. Assessment & Plan Assessment & Plan (1) Trigger finger, right ring finger: Code(s): M65.341 - Trigger finger, right ring finger Category: Medical (2) Carpal tunnel syndrome of left wrist: Code(s): G56.02 - Carpal tunnel syndrome, left upper limb Category: Medical (3) Carpal tunnel syndrome of right wrist: Code(s): G56.01 - Carpal tunnel syndrome, right upper limb Category: Medical Plan Assessment and plan: 1. Left carpal tunnel syndrome, moderate to severe With decreased subjective sensation 2. Right carpal tunnel syndrome, moderate to severe Symptoms intermittent but daily 3. Right ring finger trigger finger I educated her about these conditions We discussed operative and non operative treatment options and I am recommending surgery. We also discussed the risks of delaying treatment with carpal tunnel syndrome The risks and benefits of operative treatment were discussed with the patient and the patient wishes to proceed with surgery. These risks include, but are not limited to risk of damage to blood vessels, nerves, tendons, infection, recurrence, incomplete relief of preoperative symptoms, persistent pain, possible need for further surgery and the risks associated with regional blocks and anesthesia. The plan is to take the patient to the operating room sometime in the next few weeks for the following procedures: 1. Left carpal tunnel release under local 2. [ ] All of the preoperative paperwork including the consent was filled out today. All the patient's questions were answered. The patient understands that they will be contacted by our secretary receptionist soon to schedule this procedure We can discuss treatment of the right carpal tunnel syndrome and right ring finger trigger finger at a later date. Coding Level of Care Code Est Pt Level 4 (94830) Diagnoses Trigger finger, right ring finger M65.341 Carpal tunnel syndrome of left wrist G56.02 Carpal tunnel syndrome of right wrist G56.01
--- OUTSIDE RECORDS SUMMARY | 2025-04-11 10:50 | XMS_ITS | Clinical Summary ---
Author Organization [facility] Address [address] [address] Phone Care Team Providers Care Take Off Worker Name Role Phone Dorothy Gunderson MD Unavailable [phone] Nicholas Ardon MD Unavailable [phone] Nicholas Ardon MD Primary Care Provider [phone] Allergies Active Allergy Reactions Criticality Noted Date Comments Dulaglutide 09/17/2020 GI distress Medications mupirocin (BACTROBAN) 2 % ointmentIndicati ons:Impetigo Apply topically 3 (three) times a day. 22 g 1 Active aspirin 81 MG EC tablet Take 81 mg by mouth. 3 Active atorvastatin (LIPITOR) 80 MG tablet Take 80 mg by mouth nightly at bedtime. 3 Active losartan (COZAAR) 25 MG tablet Take 1 tablet by mouth every morning. 3 Active metoprolol succinate (TOPROL-XL) 50 MG 24 hr tablet Take 50 mg by mouth. 3 Active FREESTYLE LITE METER meter kitIndications:T ype 2 diabetes mellitus without complication, without long-term current use of insulin Use as instructed to test blood sugar daily 1 each 3 Active FREESTYLE LITE Strp stripsIndication s:Type 2 diabetes mellitus without complication, without long-term current use of insulin Inject 1 each under the skin 3 (three) times a day before meals. 300 strip 3 3 Active temazepam (RESTORIL) 7.5 MG capsuleIndicatio ns:Adjustment insomnia Take 1 capsule (7.5 mg total) by mouth nightly at bedtime as needed for anxiety (insomnia). 15 capsule 4 Active Additional Information Patient not taking.Reported on 06/01/2024 albuterol (PROAIR HFA) 90 mcg/actuation inhalerIndicatio ns:Mild intermittent asthma without complication Inhale 2 puffs into the lungs every 4 (four) hours as needed for wheezing. 20.1 g 1 4 Active BD FROILAN 2ND GEN PEN NEEDLE 32 gauge x NdleIndications: Type 2 diabetes mellitus without complication, without long-term current use of insulin Use to inject insulin once daily 100 each 3 4 Active LANTUS SOLOSTAR U-100 INSULIN 100 unit/mL (3 mL) InPn injection penIndications:T ype 2 diabetes mellitus without complication, without long-term current use of insulin INJECT 32 UNITS UNDER THE SKIN DAILY 30 mL 2 4 Active MOUNJARO 15 mg/0.5 mL PnIj subcutaneous penIndications:T ype 2 diabetes mellitus without complication, without long-term current use of insulin Inject 0.5 mL (15 mg total) under the skin every 7 days. 6 mL 3 5 Active empagliflozin (JARDIANCE) 25 mg tabletIndication s:Type 2 diabetes mellitus without complication, without long-term current use of insulin TAKE 1 TABLET BY MOUTH EVERY DAY 90 tablet 1 5 Active Active Problems Problem Noted Date Diagnosed Date Vaginal candidiasis 07/12/2024 Assessment & Plan (07/12/2024 1:54 PM EST): At risk for this due to therapy with SGLT2i however rare in occurrence and related to dietary intake of sweets Lee Ann is usually very good about watching her diet to reduce risk for this but recently had increased intake of sweets due to halloween Diflucan rx provided Adjustment insomnia 04/15/2024 Spontaneous dissection of coronary artery 2022 Assessment & Plan (05/22/2023 8:45 AM EDT): Followed by Dr. Lopez. Recommend MRA for assessment of FMD involving kidneys. Carotids if not done. Cardiac rehab in one month planned at [facility]. Type 2 diabetes mellitus wit hout complication, without long-term current use of insulin 05/22/2023 05/22/2023 Assessment & Plan (07/12/2024 2:02 PM EST): Doing very well on current antihyperglycemic regimen We discussed reducing basal insulin dosage modestly to help reduce risk for hypoglycemia We did not have glucose data to review today Continues to tolerate Mounjaro well, now at max dose Lee Ann continues to be off Metformin therapy, she was having GI upset with this Encouraged to continue efforts with healthy lifestyle habits as consistently as possible Statin therapy has been tolerated well at high intensity Due for routine eye exam, we discussed this today Maida is encouraged to contact me with any questions or concerns, we will meet again in 6 months Assessment & Plan (06/01/2024 2:44 PM EDT): Patient has a history of diabetes and is aware that Prednisone can increase blood sugar levels. -Monitor blood sugar levels while on Prednisone. -Contact office if experiencing symptoms of hyperglycemia. Assessment & Plan (04/17/2024 7:41 PM EDT): Overdue for labs, not caring for self. Show check labs as soon as possible. Order given for her to have them done at [facility]. Assessment & Plan (08/16/2023 11:22 PM EST): Doing well on current antihyperglycemic regimen Will continue current dose of basal insulin Lee Ann has not been monitoring blood sugars since May, she is provided a prescription for a glucometer and will resume self monitoring Continues to tolerate Mounjaro well, we discussed optimized dosage of 10mg which should provide continued glucose support as well as more weight loss potential Lee Ann is advised to monitor for hypoglycemia as Mounjaro dosage is optimized, her insulin requirement may be lower Lee Ann is off Metformin therapy, she was having GI upset with this Encouraged to continue efforts with healthy lifestyle habits as consistently as possible Statin therapy has been started and Lee Ann is now at high intensity Due for routine eye exam Maida is encouraged to contact me with any questions or concerns, Lee Ann will return to meet with Christal Kraus in 3 months and we will meet again in 6 months Assessment & Plan (05/22/2023 8:44 AM EDT): On mounjaro, insulin glargine, holding metformin for contrast at cath. Gall bladder polyp 07/14/2021 History of renal calculi 07/14/2021 Mild intermittent asthma without complication Assessment & Plan (06/01/2024 2:44 PM EDT): Persistent cough, wheezing, and shortness of breath for several weeks following a mild cold. Minimal relief with albuterol. No signs of pneumonia on examination. -Start Prednisone 40mg (two 20mg tablets) daily for 5 days, starting tomorrow morning with food. -Continue using albuterol as needed. -Continue [id number] cough suppressant/decongestant as needed. -Monitor for side effects of Prednisone, including increased blood sugar levels. -Contact office if symptoms worsen or do not improve. Assessment & Plan (04/17/2024 7:43 PM EDT): She has tolerated Prolia in the past as per the fact she is on a beta-hazel for spontaneous dissection of coronary artery. She understands that these medications counteract each other. She also understands that she may have no hypoglycemic warning Class 1 obesity 02/14/2019 Assessment & Plan (07/12/2024 1:50 PM EST): Lee Ann is doing well on Mounjaro and had some weight loss success with this, though this has fluctuated, she has lost ~10lb since our last visit last August She has continued to do well with lifestyle overall though she has struggled since summer when her father The combination of Mounjaro and Jardiance should continue to help with weight loss efforts, tolerating Mounjaro at max dose Encouraged to continue her efforts at healthy lifestyle Assessment & Plan (08/16/2023 11:14 PM EST): Lee Ann is doing well on Mounjaro and had some weight loss success with this, though this has fluctuated She has continued to do well optimizing her lifestyle though this was impacted by her dissecting coronary artery diagnosed in May The combination of Mounjaro and Jardiance should continue to help with weight loss efforts, we optimized Mounjaro today Encouraged to continue her efforts at healthy lifestyle Assessment & Plan (05/03/2023 5:29 PM EDT): Lee Ann is doing well on Mounjaro and has had some weight loss success with this, she had lost over 10lb between last summer and this past spring, she has had some weight regain since then She has done well optimizing her lifestyle as well and meal related changes have been helped by Mounjaro effects The combination of Mounjaro and Jardiance should help with weight loss efforts Encouraged to continue her efforts at healthy lifestyle Assessment & Plan (01/18/2023 3:32 PM EDT): Lee Ann is doing well on Mounjaro and has had some weight loss success with this, she has lost >10lb since last summer She has done well optimizing her lifestyle as well Encouraged to continue her efforts Assessment & Plan (04/08/2022 3:16 PM EDT): Optimizing healthy lifestyle would certainly be helpful for weight management We discussed trial of another GLP1ra therapy, another option may be Mounjaro which may offer more robust weight loss and has similar side effect profile Will pick and shovel man sample of [place] Assessment & Plan (09/17/2020 10:00 AM EST): Working on improving lifestyle habits Weight is down modestly since early June Assessment & Plan (05/15/2020 9:04 PM EDT): Working on weight loss, doing well, continue with steady progress toward weight loss goals. Assessment & Plan (02/14/2019 1:04 PM EDT): Weight loss will help with improvement in insulin sensitivity and thereby blood sugar management GLP1ra therapy may help with weight loss Mixed hyperlipidemia 05/17/2018 Assessment & Plan (07/12/2024 1:52 PM EST): Most recent lipid panel from this summer reviewed LDL is at goal, LDL goal is <70, other parameters are at target range Lee Ann is on high intensity statin therapy Assessment & Plan (04/17/2024 7:41 PM EDT): Due for lipids, but pending results, continue high-dose statin Assessment & Plan (08/16/2023 11:15 PM EST): Most recent lipid panel is from late 2020 LDL was modestly above goal at that time, reasonable LDL goal is <100, optimal goal is <70 Lee Ann is on high intensity statin therapy Assessment & Plan (05/22/2023 8:43 AM EDT): Continue high dose statin. Assessment & Plan (05/03/2023 5:23 PM EDT): Most recent lipid panel is from late 2020 LDL was modestly above goal at that time, reasonable LDL goal is <100, optimal goal is <70 Lee Ann is not currently on statin therapy Assessment & Plan (01/18/2023 3:30 PM EDT): Most recent lipid panel is from late 2020 LDL was modestly above goal at that time Lee Ann is not currently on statin therapy Assessment & Plan (04/08/2022 3:16 PM EDT): Most recent lipid panel reviewed, LDL just above goal, HDL low Statin therapy would be reasonable given patient's age and diabetes status and certainly if LDL is above goal Assessment & Plan (09/30/2021 4:57 PM EST): Most recent lipid panel reviewed, LDL just above goal, HDL low Statin therapy would be reasonable given patient's age and diabetes status and certainly if LDL is above goal Assessment & Plan (03/28/2021 5:53 PM EDT): Most recent lipid panel reviewed, elevated TG, with improved glucose control this may improve, healthy diet with reduced processed carbs will also lead to improvement in this No recent LDL available for review Statin therapy would be reasonable given patient's age and diabetes status and certainly if LDL is above goal Assessment & Plan (09/17/2020 9:54 AM EST): Most recent lipid panel indicated high TG, with improved glucose control this may now be somewhat improved, healthy diet with reduced processed carbs will also lead to improvement in this No recent LDL available for review Statin therapy would be reasonable given patient's age and diabetes status and certainly if LDL is above goal Assessment & Plan (05/15/2020 9:03 PM EDT): Due for labs, may need statins pending LDL. Assessment & Plan (02/14/2019 1:02 PM EDT): We reviewed recent lipid panel together, LDL at goal, TG is elevated likely due to hyperglycemia Improvement in blood sugar and reduced processed carb intake can lead to improvement in TG Encounters Date Type Department Care Team Description 02/14/2025 Refill [facility] [address] [place] [address] Dorothy Gunderson MD Medication Refill from Last 3 Months Immunizations Immunization Administration Dates Next Due COVID-19 (Pre-06/29) Pfizer Vaccine, mRNA, PF ,09/03/2020 Influenza Quadrivalent Preservative Free IM 01/2021,06/26/2016 Influenza Quadrivalent w/ Preservative IM 2014 Pneumococcal conjugate PCV13 02/02/2019 Tdap 06/26/2016 Family History Medical History Relation Comments Heart attack Brother 1 Diabetes Brother 2 CV disease Father Diabetes mellitus Father Hyperlipidemia Father Hypertension Father Diabetes mellitus Mother Thyroid disease Mother Relation Status Comments Brother 1 Alive Brother 2 Alive Daughter Alive Father Mother Alive Sister Alive Social History Tobacco Use Types Packs/Day Years Used Date Smoking Tobacco: Never Smokeless Tobacco: Never Tobacco Cessation:Counseling Given: Not Answered Alcohol Use Standard Drinks/Week Comments Yes 0 (1 standard drink = 0.6 oz pur e alcohol) Education Answer Date Recorded Are you interested in more education? Not on larisa e 01/02/2023 Are you concerned about learning? Not on file 01/02/2023 No 01/02/2023 No 01/02/2023 Digital Access Answer Date Recorded No 01/30/2023 No 01/30/2023 Reliable internet access at home? Not on file 01/30/2023 Device with a working camera? 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 Not on file Not on file Not on file Last Filed Vital Signs Vital Sign Reading Time Taken Comments Blood Pressure 110/74 07/12/2024 10:35 AM EST Pulse 87 07/12/2024 10:35 AM EST Temperature 36.3 C (97.4 F) 06/01/2024 2:23 PM EDT Respiratory Rate - - Oxygen Saturation 98% 06/01/2024 2:23 PM EDT Inhaled Oxygen Concentration - - Weight 99.3 kg (219 lb) 07/12/2024 10:35 AM EST Height 174.2 cm (5' 8.58 ) 07/12/2024 10:[address] Body Mass Index 32.74 07/12/2024 10:35 AM EST Plan of Treatment Upcoming Encounters Date Type Department Care Team (Late st Contact Info) Description 04/17/2025 9:00 AM EDT Office Visit [facility] [address] [place] [address] Dorothy Gunderson MD [address] [facility] [place] [address] [email or web address] Health Maintenance Due Date Last Done Comments PNEUMOCOCCAL VACCINES (0-49 years) (2 of 2 - PPSV23) 03/30/2019 02/02/2019 DIABETIC EYE EXAM 03/16/2020 03/16/2019 DEPRESSION SCREENING 05/11/2021 05/11/2020 PAP SMEAR 09/03/2021 09/03/2016 HEMOGLOBIN A1C 02/13/2024 08/14/2023, 04/08, 01/16/2023, Additional history exists COVID-19 VACCINE ( season) 2024 06/04/2021, 09/14/2020, 09/03/2020 COLOGUARD 2024 COLONOSCOPY 2024 COLORECTAL CANCER SCREENING 2024 FIT TEST 2024 FOBT 2024 SIGMOIDOSCOPY 2024 VIRTUAL COLONOSCOPY 2024 BLOOD PRESSURE 01/09/2025 07/12/2024 CREATININE LEVEL 04/21/2025 04/21/2024, , 05/28/2020, Additional history exists POTASSIUM LEVEL 04/21/2025 04/21/2024, 05/09, 02/07/2019 Adult Td,Tdap Booster 06/26/2026 06/26/2016 MAMMOGRAM 07/21/2026 07/21/2024, 07/08, 07/15/2022 HIV ONE-TIME SCREENING (18-65 YEARS) Completed 12/15/2012 HEPATITIS C SCREENING Completed 12/18/2015 SMOKING STATUS SCREENING (Once After 26 Yrs) Completed 06/01/2024 HEPATITIS A VACCINES Aged Out No long er eligible based on patient's age to complete this topic HIB VACCINES Aged Out No longer eligi ble based on patient's age to complete this topic MENINGOCOCCAL VACCINES (ACWY) Aged Out No longer eligible based on patient's age to complete this topic MENINGOCOCCAL VACCINES (B) Aged Out N o longer eligible based on patient's age to complete this topic Medical Devices Not on file Procedures Procedure Name Priority Date/Time Associated Diagnosis Comments HM MAMMOGRAPHY Routine 07/21/2024 3:50 PM EST BASIC METABOLIC PANEL Routine 04/21/2024 11:50 AM EDT Type 2 diabetes mellitus without complication, with long-term current use of insulin POCT HEMOGLOBIN A1C Routine 08/14/2023 3 :12 PM EST Type 2 diabetes mellitus without complication, without long-term current use of insulin DIABETES EYE EXAM FOR RESULT ENTRY ONLY Routine 03/16/2019 HM PAP SMEAR FOR RESULT ENTRY ONLY Routine 09/03/2016 OUTSIDE HEPATITIS C VIRUS SCREENING Routine 12/18/2015 OUTSIDE HIV Routine 12/15/2012 from Last 3 Months or Most Recently Relevant to Health Maintenance Results * HM MAMMOGRAPHY FOR RESULT ENTRY ONLY (07/21/2024 3:50 PM EST) Result [facility] Nicholas Ardon MD HEALTH MAINTENANCE Edited Resu lt - Final * Basic metabolic panel (04/21/2024 11:50 AM EDT) Blood Result [facility] Nicholas Ardon MD LAB BLOOD ORDERABLES Final Res ult Performing Organization Address City/[facility] Co de Phone Number EXTERNAL NON-INTERFACED REF LAB * (ABNORMAL) POCT Hemoglobin A1c (08/14/2023 3:12 PM EST) Hemoglobin A1c 7.8(A) 4.2 - 5.8 % [employer] Other 08/14/2023 3:12 PM EST Result [facility] Dorothy Gunderson MD POINT OF CARE TEST ORDERABLES F inal Result Performing Organization Address [facility] Co de Phone Number [email or web address] [facility] [address] [place] [address], [facility] * HM DIABETES EYE EXAM FOR RESULT ENTRY ONLY (03/16/2019) Result [facility] Historical Connie MCLEAN HEALTH MAINTENANCE Final Result * HM PAP SMEAR FOR RESULT ENTRY ONLY (09/03/2016) HM Pap smear NIL Result [facility] Connie MCLEAN HEALTH MAINTENANCE Final Result * Outside Hepatitis C Virus Screening (12/18/2015) Hepatitis C Screening - External Neg Result [facility] Connie MCLEAN LAB BLOOD ORDERABLES Jazzy l Result * OUTSIDE HIV TEST (12/15/2012) HIV - External Neg Result [facility] Provider LAB BLOOD ORDERABLES Jazzy l Result from Last 3 Months or Most Recently Relevant to Health Maintenance Insurance [employer] B[employer] Care Teams Take Off Worker Relationship Specialty Start Date End Date Nicholas Ardon MD [address] [place] [address], [address] [place] [address] PCP - General 09/10/17 Dorothy Gunderson MD [address] [place] [address], [address] [place] [address] Historical [facility] Provider 06/23/17 Nicholas Ardon MD [address] [place] [address], [address] [place] [address] [email or web address] Historical LMR Provider 06/23/17 Additional Source Comments The information contained in this document represents components of the legal health record. It is not the complete legal health record.[facility]
--- OUTSIDE RECORDS SUMMARY | 2025-04-11 10:50 | XMS_ITS | Patient Health Record ---
Author Organization [facility] Address [address] [address] [place] [address] Care Team Providers Care Continuing Education Instructor Name Role Phone Nicholas Ardon MD Primary Care Provider Unavail able Jodi Delgadillo Unavailable [phone] Allergies No Known Allergies Results Component Value Reference Range Notes HEMOGLOBIN A1C (GLYCOHEMOGLO BIN) Reviewed date:04/12/2024 10:09:36 AM Interpretation: Performing Lab: Notes/Report: HEMOGLOBIN A1C (HH) 7.0 Reason For Referral No Information Medications Medication SIG (Take, Route, Frequency, Duration) Notes Start Date End Date Status Metoprolol Succinate ER 50 MG Oral; Duration: 90 Days Acti ve Aspirin Low Dose 81 MG TAKE 1 TABLET BY MOUTH EVERY DAY Oral; Duration: 30 Days Active Jardiance 25 MG Oral; Duration: 90 Days Active Mounjaro 15 MG/0.5ML Subcutaneous; Durat ion: 28 Days Active Atorvastatin Calcium 80 MG TAKE 1 TABLET BY MOUTH AT BEDTIME Oral; Duration: 30 Days Active metFORMIN HCl 1000 MG Oral; Duration: 90 Days Active Immunizations Vaccine Route Administration [...] Problem Status W/U Status Risk Notes Problem Type II diabetes mellitus without complication ([id number]) Diabetes mellitus without complication (E11.9) Active confirmed Vital Signs Height 5 ft 9 in in 04/12/2024 Weight 220 lbs 04/12/2024 BMI 32.48 kg/m2 04/12/2024 Encounters Encounter Location Date Provider [facility] [address] [place] [address] 04/12/2024 Jodi Perica Ganglion of foot, right M67.471 ; Mucoid cyst, joint M67.40 and Diabetes mellitus without complication E11.9 [facility] [address] [place] [id number] 10/19/2024 Jodi Perica Assessments Encounter Date Diagnosis [...] Coverage End Date [employer] Benefits [address] [address] [place] [address] [id number] Colon, Michelle Self - patient is the insured Medical (General) History Medical History History ICD Code Diabetic Heart disease Chicken pox Surgical History Surgery Date(Month/Year) coronary artery dissection
== END 2025-04-11 11:47 | disposition home or self-care (01) ==
LOC: HO.HOS 10:17
PROVIDERS: Visit Provider Orthopaedic Surgery
DX: G56.03 Carpal tunnel syndrome, bilateral upper limbs (principal); M65.341 Trigger finger, right ring finger
CPT/HCPCS: 99214

== ENCOUNTER 2025-06-17 20:27 | Emergency (ER) | payer OTHER, SELFPAY ==
[2024-12-27 13:00] VITALS: BP 112/64; BP 140/80; BMI 33.0
[2025-06-17 20:29] VITALS: BP 168/79; PULSE 91; RESP 18; TEMP 36.6; O2SAT 100; BMI 34.5
--- NOTE | 2025-06-17 20:30 | ED_ITS ---
HPI - General Adult General Chief complaint: Eye Problems Stated complaint: right eye pain Time Seen by Provider: 06/17/25 21:21 Source: patient Mode of arrival: ambulatory Limitations: no limitations History of Present Illness ED Provider: Divya Benavidez PA-C HPI narrative: Patient is a 44 year old assigned female at with a history of cardiomyopathy, CAD, HLD, and DM presenting to the emergency department today with right sided eye irritation. Patient states that she woke up and noticed her right eye was red and she has since rubbed it several times. Patient denies any other complaints at this time. Related Data Home Medications ?Medication ?Instructions ?Recorded ?Confirmed empagliflozin 25 mg tablet 25 mg PO DAILY 05/13/23 (Jardiance) insulin glargine-yfgn 100 unit/mL 32 unit subcut BEDTI ME 05/13/23 11/24/24 (3 mL) subcutaneous pen (Semglee (insulin glargine-yfgn) Pen) multivitamin 1 tab PO DAILY 05/13/2311/06 biotin 10 mg tablet 10 mg PO DAILY 05/29/2311/06 tirzepatide 15 mg/0.5 mL mg subcut 11/24/24 11/24/24 subcutaneous pen injector (Lisa) Previous Rx's ?Medication ?Instructions ?Recorded aspirin 81 mg tablet,delayed 81 mg PO DAILY #90 ea release atorvastatin 80 mg tablet 80 mg PO BEDTIME #90 tabs losartan 25 mg tablet 25 mg PO DAILY #90 tabs 11/06 metoprolol succinate 50 mg 50 mg PO DAILY #90 tabs tablet,extended release 24 hr erythromycin 5 mg/gram (0.5 %) eye 0.5 inch ophthalmic (eye) Q4H #3.5 06/17/25 ointment grams Allergies Allergy/AdvReac Type Severity Reaction Status Date / Time No Known Allergies (No Known Allergy Verified 06/17/25 20:31 Allergies*) Review of Systems Constitutional: Constitutional: Reports as per HPI Eyes: Eyes: Reports as per HPI ENT: Reports as per HPI Cardiovascular: Cardiovascular: Reports as per HPI Respiratory: Respiratory: Reports as per HPI Gastrointestinal: Gastrointestinal: Reports as per HPI Genitourinary: Genitourinary: Reports as per HPI Musculoskeletal: Musculoskeletal: Reports as per HPI Integumentary/Breasts: Skin/Breast: Reports as per HPI Neurologic: Reports as per HPI Psychiatric: Psychiatric: Reports as per HPI Endocrine: Endocrine: Reports as per HPI Hematologic/Lymphatic: Hematologic/Lymphatic: Reports as per HPI Allergic/Immunologic: Allergic/Immunologic: Reports as per HPI [facility] Past Medical History Attestation statement: The following information was validated with the patient. Source: old records reviewed and nursing notes reviewed Medical History Asthma Diabetes Surgical History Hx of hand surgery Hx of cardiac cath Family History Family History Father CAD (coronary artery disease) Mother No problems noted. 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 Physical Exam ED Vital Signs: Vital Signs - 24 hr 06/17/25 20:29 06/17/25 21:42 Temperature 97.8 F 97.8 F Pulse Rate 91 91 Respiratory Rate 18 18 Blood Pressure 168/79 H 168/79 H Pulse Oximetry 100 100 Oxygen Delivery Method Room Air BMI result Body Mass Index 34.5 Const General: cooperative, no acute distress, alert and awake Nutritional Appearance: well nourished Orientation/consciousness: patient oriented x3 HENMT Head: Yes normal to inspection and Yes atraumatic Ears: hearing grossly normal bilaterally and external ears normal General nose exam: Normal external nose present, no nasal discharge noted and no epistaxis Face and sinus: Yes normal facial exam, No abrasion and No laceration Mouth: Normal oral and palatal mucosa present, no drooling and no muffled voice Eyes Other: minimal redness present to the right conjunctiva Pupils: Equal, round and reactive pupils present EOM: EOMs intact bilaterally Neck Neck: Yes normal visual inspection and Yes full ROM Resp Effort & Inspection: normal respiratory effort and able to speak in complete sentences Neuro General: patient oriented x3, moves all extremities and CN's II-XI intact bilaterally Cranial nerves: Yes Equal, round and reactive pupils present Cognition (Neuro): normal cognition Extrem General: Yes normal to inspection, Yes full ROM and Yes capillary refill normal Psych Appearance: grossly normal Mental Status: mental status grossly normal Affect: normal affect Attitude: cooperative Thought process: Normal thought process present Thought content: Normal thought content present Insight: Good insight present (Psych) Course Course Course Narrative: This is a Rapid Medical Examination (RME) performed by Ayse Parks PA-C in triage. Full HPI, ROS, assessment and treatment plan per primary provider in the Main ED. Hx: 44 yo F here for eval of I have an inflammed sclera which she noticed upon waking up from a nap. felt as if something was in her right eye and kept rubbing it. No vision changes. Plan: Tetracaine/fluorescein eval, visual acuity Medications Administered Discontinued Medications Generic Name Dose Route Start Last Admin Trade Name Jacq PRN Reason Stop Dose Admin Erythromycin 1 cm 06/17/25 21:26 06/17/25 21:39 Erythromycin Base 0.5% Oph Oin 1 Gm Tube EYE-RIGHT 06/17/25 21:27 1 cm ONCE ONE Administration Fluorescein Sodium 1 strip 06/17/25 20:30 06/17/25 21:41 Fluorescein Sodium Strip EYE-RIGHT 06/17/25 20:31 Not Given ONCE ONE Tetracaine HCl 1 drop 06/17/25 20:30 06/17/25 21:41 Tetracaine Hcl/Pf 0.5% Oph Dona 4 Ml Drops EYE-RIGHT 06/17/25 20:31 Not Given ONCE ONE Medical Decision Making Medical Decision Making [facility] Narrative: Patient is a 44 year old assigned female at with a history of cardiomyopathy, CAD, HLD, and DM presenting to the emergency department today with right sided eye irritation. Patient's physical exam was as noted in the physical exam portion of this note. Patient's clinical presentation is most consistent with conjunctivitis. Given her history of diabetes, will cover with ABX. I explained my physical exam findings to the patient. I answered all questions asked by the patient. I stressed the importance of the patient taking her medication as directed (either prescribed or as the over the counter packaging recommends). I stressed the importance of the patient following up with her primary care provider. I stressed the importance of the patient returning to the emergency department immediately if her symptoms were to worsen or if she were to develop any dizziness, shortness of breath, difficulty breathing, chest pain, blurry vision, loss of vision, nausea, vomiting, abdominal pain, fever, chills, back pain, or any other complaints. Patient verbalized agreement and understanding with this treatment plan and discharge. Differential Diagnosis Differential Diagnoses: The differential diagnosis associated with the presentation includes Right conjunctivitis Admission/Observation Consideration of admission/observation: Escalation of care including admission/observation considered Patient would have been admitted to the hospital had her clinical presentation warranted hospital admission. Prescription Management I considered prescription management with: Antibiotic (patient prescribed an antibiotic) Chronic Conditions Patient?s care impacted by: Diabetes Discharge Plan Discharge Clinical Impression: Conjunctivitis Qualifiers: Conjunctivitis type: acute Acute conjunctivitis type: unspecified Laterality: right Qualified Code(s): H10.31 - Unspecified acute conjunctivitis, right eye Patient Disposition: Home, Self-Care Instructions: Conjunctivitis (ED) Additional Instructions: Use your antibiotic ointment as prescribed. Given your history of diabetes - you should follow up with an end user support specialist. IF you are prescribed home medications and/or you are taking over the counter medications at home - it is very important you continue to do so as prescribed / directed unless told otherwise. Follow up with your primary care provider. Return to the emergency department immediately if your symptoms worsen or if you develop any numbness, tingling, dizziness, shortness of breath, difficulty breathing, chest pain, blurry vision, loss of vision, nausea, vomiting, abdominal pain, fever, chills, back pain, or any other complaints. Please see the information below about our Patient Portal. If you are not yet enrolled in the [facility] Patient Portal, you will receive an enrollment email invitation following your visit to any [facility] setting. You may also self-enroll in the Patient Portal by visiting our website: [email or web address] The following information is required to access the Patient Portal: - Your [facility] Medical Record Number - Your personal home email address (must match what is in your electronic medical record, Registration staff can assist with this) - Name - Date of Capabilities of the Patient Portal: - Message some providers - View upcoming appointments - Access your health summary, medical history, and visit history - View current conditions and allergies - View procedure and lab results - View your medications, including guidelines, side effects, and precautions - Complete pre-appointment questionnaires requested by your provider - Ready summary reports of your office visits and procedures To access the Patient Portal Mobile Zach, follow these directions: - Search Vendobots in the Zach Store or [employer] Store - Download the Zach - Search for [facility] - Enter your login/password Prescriptions: New erythromycin 5 mg/gram (0.5 %) ointment 0.5 inch ophthalmic (eye) Q4H Qty: 3.5 0RF No Action metoprolol succinate 50 mg tablet extended release 24 hr 50 mg PO DAILY Qty: 90 3RF aspirin 81 mg tablet,delayed release (DR/EC) 81 mg PO DAILY Qty: 90 3RF atorvastatin 80 mg tablet 80 mg PO BEDTIME Qty: 90 3RF losartan 25 mg tablet 25 mg PO DAILY Qty: 90 3RF Jardiance 25 mg tablet 25 mg PO DAILY insulin glargine-yfgn [Semglee(insulin glarg-yfgn)Pen] 100 unit/mL (3 mL) insulin pen 32 unit subcut BEDTIME multivitamin Tablet 1 tab PO DAILY biotin 10 mg tablet 10 mg PO DAILY Mounjaro 15 mg/0.5 mL pen injector subcut Referrals: Chanelle Mars, PNP [Physician Middleware Developer, Pediatrics] Interventions: ED Discharge Assessment Last Done: 06/17/25 21:42 Discharge Date/Time: 06/17/25 21:46 Print Language: Kittitian
--- OUTSIDE RECORDS SUMMARY | 2025-06-17 20:52 | XMS_ITS | Clinical Summary ---
Author Organization [facility] Address [address] [address] Phone Care Team Providers Care Cloth Examiner Hand Name Role Phone Dorothy Gunderson MD Unavailable Nicholas Ardon MD Unavailable [phone] Nicholas Ardon MD Primary Care Provider [phone] Allergies Active Allergy Reactions Criticality Noted Date [...] Active Additional Information Patient not taking.Reported on 04/17/2025 albuterol (PROAIR HFA) 90 mcg/actuation inhalerIndicatio ns:Mild [...] Cardiac [place] in one [place] [facility]. Type 2 diabetes mellitus wit hout complication, without long-term current use of insulin 05/22/2023 05/22/2023 Assessment & Plan (04/17/2025 10:59 AM EDT): Continues on basal insulin, GLP/GIP and SGLT2i therapies, tolerating these well but overall control is suboptimal We did not adjust insulin doses today since we do not have glucose data to review, Lee Ann is advised to resume blood sugar monitoring at least on waking which will indicate how effective current dose of basal insulin is, also advised to monitor in evening when she is most likely to feel low, we discussed CGM however Lee Ann is not interested in this at this time as she does not feel her insurance covers We discussed strategic evening snacks which may help reduce overnight/fasting glucose but reducing the total fasting time, we discussed how insulin resistance affects rise in glucose overnight Continues to tolerate Mounjaro well, now at max dose, this has not had a significant impact on weight Lee Ann continues to be off Metformin therapy, she was having GI upset with this Encouraged to continue efforts with healthy lifestyle habits as consistently as possible, this has been challenging due to body pain Statin therapy has been tolerated well at high intensity Due for routine eye exam, we discussed this today Lee Ann is encouraged to contact me with any questions or concerns, we will meet again in 6 months Assessment & Plan (07/12/2024 2:02 PM EST): [...] for her to have them done at [facility]. Assessment & Plan (08/16/2023 11:22 PM EST): [...] insulin glargine, holding metformin for contrast at [facility]. Gall bladder polyp 07/14/2021 History of renal [...] food. -Continue using albuterol as needed. -Continue pgqc-had-lysojou cough suppressant/decongestant as needed. -Monitor for side [...] and has similar side effect profile Will picking tech sample of [place] Assessment & Plan (09/17/2020 10:00 AM EST): [...] loss Mixed hyperlipidemia 05/17/2018 Assessment & Plan (04/17/2025 10:50 AM EDT): Most recent lipid panel from last summer reviewed LDL is at goal, LDL goal is <70, other parameters are at target range Lee Ann is on high intensity statin therapy Assessment & Plan (07/12/2024 1:52 PM EST): [...] Encounters Date Type Department Care Team Description 04/17/2025 9:00 AM EDT Office Visit [facility] [address] [place] [address] Dorothy Gunderson MD Type 2 diabetes mellitus without complication, without long-term current use of insulin (Primary Dx); Mixed hyperlipidemia from Last 3 Months Immunizations Immunization Administration [...] Not Answered Alcohol Use Standard Drinks/Week Comments Not Currently 0 (1 standard drink = 0.6 oz [...] Sign Reading Time Taken Comments Blood Pressure 112/68 04/17/2025 9:00 AM EDT Pulse 94 04/17/2025 9:00 AM EDT Temperature 36.3 C (97.4 F) 06/01/2024 2:23 PM EDT Respiratory Rate - - Oxygen Saturation 99% 04/17/2025 9:00 AM EDT Inhaled Oxygen Concentration - - Weight 103 kg (227 lb) 04/17/2025 9:00 AM EDT Height 174.2 cm (5' 8.58 ) 07/12/2024 10:[address] Body Mass Index 33.93 07/12/2024 10:35 AM EST Plan of Treatment Upcoming Encounters Date Type Department Care Team (Late st Contact Info) Description 10/20/2025 9:40 AM EST Office Visit [facility] [address] [place] [address] Dorothy Gunderson MD [address] [facility], [address] [place] [address] [email or web address] Health Maintenance Due Date Last Done Comments PNEUMOCOCCAL VACCINES (0-49 years) (2 of 2 - PPSV23) 03/30/2019 02/02/2019 DIABETIC EYE EXAM 03/16/2020 03/16/2019 DEPRESSION SCREENING 05/11/2021 05/11/2020 PAP SMEAR 09/03/2021 09/03/2016 COLOGUARD 2024 COLONOSCOPY 2024 COLORECTAL CANCER SCREENING 2024 FIT TEST 2024 FOBT 2024 SIGMOIDOSCOPY 2024 VIRTUAL COLONOSCOPY 2024 INFLUENZA VACCINE (#1) 2025 , 06/26/2016, 05/08/2015 CREATININE LEVEL 04/21/2025 04/21/2024, , 05/28/2020, Additional history exists POTASSIUM LEVEL 04/21/2025 04/21/2024, 05/09, 02/07/2019 COVID-19 VACCINE ( season) 2025 06/04/2021, 09/14/2020, 09/03/2020 BLOOD PRESSURE 10/18/2025 04/17/2025 HEMOGLOBIN A1C 10/18/2025 04/17/2025, 12/0 04/2023, 05/01/2023, Additional history exists Adult Td,Tdap Booster 06/26/2026 06/26/2016 MAMMOGRAM 07/21/2026 07/21/2024, 07/08, 07/15/2022 HIV ONE-TIME SCREENING (18-65 YEARS) Completed 12/15/2012 HEPATITIS C SCREENING Completed 12/18/2015 SMOKING STATUS SCREENING (Once After 26 Yrs) Completed 04/17/2025 HEPATITIS A VACCINES Aged Out No long [...] Procedure Name Priority Date/Time Associated Diagnosis Comments POCT HEMOGLOBIN A1C Routine 04/17/2025 9 :24 AM EDT Type 2 diabetes mellitus without complication, without long-term current use of insulin MAMMOGRAPHY Routine 07/21/2024 3:50 PM EST BASIC METABOLIC PANEL Routine 04/21/2024 11:50 AM EDT Type 2 diabetes mellitus without complication, with long-term current use of insulin DIABETES EYE EXAM FOR RESULT ENTRY ONLY Routine 03/16/2019 PAP SMEAR FOR RESULT ENTRY ONLY Routine 09/03/2016 OUTSIDE HEPATITIS C VIRUS SCREENING Routine 12/18/2015 OUTSIDE HIV Routine 12/15/2012 from Last 3 Months or Most Recently Relevant to Health Maintenance Results * (ABNORMAL) POCT Hemoglobin A1c (04/17/2025 9:24 AM EDT) Hemoglobin A1c 7.7(A) 4.2 - 5.6 % [employer] [facility] Other 04/17/2025 9:24 AM EDT us Dorothy Gunderson MD POINT OF CARE TEST ORDERABLES F inal Result [employer] [address] [place] [address], [facility] * MAMMOGRAPHY FOR RESULT ENTRY ONLY (07/21/2024 3:50 PM EST) Result [facility] Nicholas Ardon MD HEALTH MAINTENANCE Edited Resu lt - Final * Basic metabolic panel (04/21/2024 11:50 AM EDT) Blood Result [facility] Nicholas Ardon MD LAB BLOOD ORDERABLES Final Res ult EXTERNAL NON-INTERFACED REF LAB * HM DIABETES EYE EXAM FOR RESULT ENTRY ONLY (03/16/2019) Result [facility] Historical Provider HEALTH MAINTENANCE Final Result * HM PAP SMEAR FOR RESULT ENTRY ONLY (09/03/2016) Pap smear NIL Result [facility] Provider HEALTH MAINTENANCE Final Result * Outside Hepatitis C Virus Screening (12/18/2015) Hepatitis C Screening - External Neg Result [facility] Provider LAB BLOOD ORDERABLES Jazzy l Result * OUTSIDE HIV TEST (12/15/2012) HIV - External Neg Result [facility] Provider LAB BLOOD ORDERABLES Jazzy l Result from Last 3 Months or Most Recently Relevant to Health Maintenance Insurance [employer] iPayment [employer] iPayment [employer] iPayment [employer]ENEFITS [employer] iPayment BENEFITS ADMINISTRAT[employer] iPayment [employer] [address] [employer]EFITS [employer]MIN[employer] iPayment BENEFITS ADMINISTRATORS [facility] B[employer]EFITS ADMIN[employer]RATORS Care Teams Cloth Examiner Hand Relationship Specialty Start Date End Date Nicholas Ardon MD [address] [place] [address], [address] [place] [address] PCP - General 09/10/17 Dorothy Gunderson MD [address] [place] [address], [address] [place] [address] Historical LMR Provider 06/23/17 Nicholas Ardon MD [address] [place] [address], [address] [place] [address] Historical LMR Provider 06/23/17 Additional Source Comments The information contained in this document represents components of the legal health record. It is not the complete legal health record.[facility]
--- OUTSIDE RECORDS SUMMARY | 2025-06-17 20:52 | XMS_ITS | Patient Health Record ---
Author Organization [facility] Address [address] [place] [address] Care Team Providers Care Costume Maker Name Role Phone Nicholas Ardon MD Primary Care Provider Unavail able Jodi Delgadillo Unavailable [phone] Allergies No Known Allergies Reason For Referral No Information Medications Medication [...] Problem Type II diabetes mellitus without complication (370270721) Diabetes mellitus without complication (E11.9) Active confirmed Encounters Encounter Location Date Provider [facility] [address] [address] 10/19/2024 Jodi Delgadillo Plan Of Treatment No Information Insurance Providers Payer Name Payer Address Payer Phone Subscriber Number Group Number Insured Name Patient Relationship to Insured Coverage Start Date Coverage End Date [employer] Benefits [address] [address] [place] [address] [id number] Anjel Michelle Self - patient is the insured Medical (General) History Medical History History ICD Code Diabetic Heart disease Chicken pox Surgical History Surgery Date(Month/Year) coronary artery dissection
[2025-06-17] MEDS: Erythromycin Base 0.5% Oph Oin 1 GM TUBE 1 CM EYE-RIGHT (21:39)
[2025-06-17 21:42] VITALS: BP 168/79; PULSE 91; RESP 18; TEMP 36.6; O2SAT 100
== END 2025-06-17 21:46 | disposition home or self-care (01) ==
PROVIDERS: Emergency Provider Emergency Medicine; PCP Pediatrics
DX: H10.31 Unspecified acute conjunctivitis, right eye (principal); H57.11 Ocular pain, right eye; I25.10 Atherosclerotic heart disease of native coronary artery without angina pectoris; E78.5 Hyperlipidemia, unspecified; E11.9 Type 2 diabetes mellitus without complications
CPT/HCPCS: 99283; 99284

== ENCOUNTER 2025-06-23 08:49 | Emergency (ER) | payer OTHER, SELFPAY ==
[2024-12-27 13:00] VITALS: BP 112/64; BP 140/80; BMI 33.0
--- NOTE | ~2025-06-23 | CT_ITS ---
EXAMINATION: CT ABDOMEN AND PELVIS WITH CONTRAST CLINICAL INFORMATION: Abdominal pain, constipation, no flatus. COMPARISON: None available. TECHNIQUE: Multidetector volumetric images were obtained from the superior aspect of the liver through the pubic symphysis following administration 85 mL of Omnipaque 350 intravenous contrast. Sagittal and coronal reformatted images were obtained on the technologist's workstation. Oral contrast: No This CT examination was performed using dose optimization techniques as appropriate, variously including the following: *Automated exposure control *Adjustment of mA and/or kV according to patient size (this includes techniques or standardized protocols for targeted exams where dose is matched to indication/reason for exam; i.e. extremities or head) *Use of iterative reconstruction technique FINDINGS: LUNG BASES: The lung bases are clear. The heart size is normal. There is a tiny type I hiatus hernia. There are no effusions. LIVER, GALLBLADDER, AND BILIARY TREE: The liver is normal in size, shape, and attenuation. No focal hepatic lesion or biliary ductal dilatation is present. The gallbladder is unremarkable with no evidence of radiopaque gallstones, gallbladder wall thickening, or obvious pericholecystic inflammatory changes. PANCREAS: Unremarkable. SPLEEN: Unremarkable. ADRENAL GLANDS: Unremarkable. KIDNEYS AND URETERS: The kidneys are normal in size, shape, and attenuation. No hydronephrosis, hydroureter, or calculi seen. No perinephric stranding. BLADDER: Unremarkable. GASTROINTESTINAL TRACT: Of note, there is wall thickening and inflammation of the descending colon extending to the level of the sigmoid junction. There is associated or colonic inflammatory change. There is moderate diverticulosis of the sigmoid without evidence of acute diverticulitis. Remainder of the colon appears normal. There is moderate stool burden in the right hemicolon. The rectum images normally. The appendix is normal. Small bowel is normal in caliber and course, without inflammation or wall thickening. The stomach is decompressed. The duodenal sweep appears normal. PERITONEUM: There is no free air or ascites. ABDOMINAL WALL: No significant hernia is appreciated. LYMPH NODES: Normal. VASCULAR: There is mild atheromatous calcification of the aorta and iliac arteries. There is no aneurysm. PELVIC VISCERA: The uterus and adnexa are unremarkable. An IUD is in place and appears appropriately positioned. OSSEOUS STRUCTURES: There is no suspicious lytic or blastic bone lesion. There are mild degenerative changes in both hip joints. There are mild degenerative disc changes in the spine. No SI joint abnormality. CT/CT abdomen pelvis w IV con IMPRESSION: 1. Inflammation or wall thickening of the descending colon consistent with a segmental colitis. This could be infectious or inflammatory. 2. Ancillary findings as discussed in the body of the report. Electronically signed by: All Soria MD 06/23/2025 12:47 PM EDT
[2025-06-23 09:05] VITALS: BP 142/79; PULSE 97; RESP 16; TEMP 36.7; O2SAT 97; BMI 33.0
--- NOTE | 2025-06-23 09:15 | ECG_ITS ---
Test Reason : abd oain Blood Pressure : */* mmHG Vent. Rate : 90 BPM Atrial Rate : 90 BPM P-R Int : 138 ms QRS Dur : 104 ms QT Int : 364 ms P-R-T Axes : 33 -17 0 degrees QTcB Int : 445 ms Normal sinus rhythm Minimal voltage criteria for LVH, may be normal variant ( [place] product ) Borderline ECG When compared with ECG of 09-Aug-2024 10:46, No significant change was found Referred By: Nunu Sierra Electronically Signed By: Ciro Lopez
--- NOTE | 2025-06-23 09:22 | ED.ABDPAIN ---
HPI - Abdominal Pain General Chief Complaint: Abdominal Pain Stated Complaint: sent by UC to rule out Bowel obstruction Time Seen by Provider: 06/23/25 09:15 Source: patient and old records reviewed Mode of arrival: ambulatory Limitations: no limitations History of Present Illness ED Provider: ROLDAN SPENCER narrative: 45 yo female with PMH of coronary artery dissection on aspirin, recovered cardiomyopathy, HTN, IDDM, no prior abdominal surgeries here with c/o 48 hours of constipation, no flatus, diffuse colicky abdominal pain. No n/v no fevers. She has no cp/sob. She has no prior obstruction and she has never had this before. She has not taken any OTC medications yet. She has no prior abd surgeries. MD elicited complaint: abdominal pain Pertinent past history: none Onset (ago): hour(s) (48) Pain Consistency: intermittent Location: diffuse Quality: cramping and aching Radiation: none Migration to: no migration Exacerbating factors: eating and movement Relieving factors: nothing Associated symptoms: constipation Related Data Home Medications ?Medication ?Instructions ?Recorded ?Confirmed empagliflozin 25 mg tablet 25 mg PO DAILY 05/13/23 11/24/24 (Jardiance) insulin glargine-yfgn 100 unit/mL 32 unit subcut BEDTIME 05/13/23 11/24/24 (3 mL) subcutaneous pen (Semglee (insulin glargine-yfgn) Pen) multivitamin 1 tab PO DAILY 05/13/23 11/24/24 biotin 10 mg tablet 10 mg PO DAILY 05/29/23 11/24/24 tirzepatide 15 mg/0.5 mL mg subcut 11/24/24 11/24/24 subcutaneous pen injector (Lisa) Previous Rx's ?Medication ?Instructions ?Recorded aspirin 81 mg tablet,delayed 81 mg PO DAILY #90 ea 11/24/24 release atorvastatin 80 mg tablet 80 mg PO BEDTIME #90 tabs 11/24/24 losartan 25 mg tablet 25 mg PO DAILY #90 tabs 11/24/24 metoprolol succinate 50 mg 50 mg PO DAILY #90 tabs 11/24/24 tablet,extended release 24 hr erythromycin 5 mg/gram (0.5 %) eye 0.5 inch ophthalmic (eye) Q4H #3.5 06/17/25 ointment grams hydrocodone 5 mg-acetaminophen 325 1 tab PO Q6H PRN pain #12 tabs 06/23/25 mg tablet ondansetron 4 mg disintegrating 4 mg PO Q8H PRN nausea and 06/23/25 tablet vomiting #20 tabs Allergies Allergy/AdvReac Type Severity Reaction Status Date / Time No Known Allergies (No Known Allergy Verified 06/23/25 09:08 Allergies*) Review of Systems Review of Systems Constitutional : No Weight loss, No Fever, No Chills ENT/Mouth : No sore throat, No Rhinorrhea Eyes: No Swelling, No Redness Cardiovascular : No Chest Pain, No SOB, NoEdema Respiratory : No Cough, No Sputum, No Wheezing Gastrointestinal :no Nausea, no Vomiting, no Diarrhea, positive abdominal Pain, No Hematochezia, No Melena, pos constipation Genitourinary : No Dysuria, No Urinary Frequency, No Hematuria, No Urgency Musculoskeletal : No joint pain, No Myalgias, No Joint Swelling Skin : No Skin Lesions, No rash Neuro : No Weakness, No Numbness, No Dizziness, No Headache All other systems reviewed and are negative. [facility] Past Medical History Attestation statement: The following information was validated with the patient. Source: old records reviewed Medical History Asthma Diabetes Surgical History Hx of hand surgery Hx of cardiac cath Family History Family History Father CAD (coronary artery disease) Mother No problems noted. 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 Oriented X3. No acute distress. Eyes: Pupils equal, round and reactive to light. ENT: Pharynx normal. Neck: Normal inspection. Neck supple. CVS: Normal heart rate and rhythm. Pulses normal. Respiratory: No respiratory distress. Breath sounds normal. Abdomen: Soft with some distention and moderate ttp no rebound Skin: Skin warm and dry. Normal skin color. Extremities: No lower extremity edema. Neuro: Oriented X 3. No motor deficit. No sensory deficit. Medical Decision Making Medical Decision Making [facility] Narrative: 45 yo female with PMH of coronary artery dissection on aspirin, recovered cardiomyopathy, HTN, IDDM, no prior abdominal surgeries here with c/o constipation and no flatus for almost 48 hours. She has never had abd surgery before so SBO less likely. She will need IV morphine for pain, CT scan, labs, EKG for possible SBO, ileus, IBS, lyte abnormality, mass. Differential Diagnosis Differential Diagnoses: The differential diagnosis associated with the presentation includes SBO, ileus, constipation, IBS, lyte abnormality, mass Admission/Observation Consideration of admission/observation: Escalation of care including admission/observation considered does not want to stay she is not immunocompromised no fevers, no bloody stools will hold oral abx Lab Data [facility] Lab Attestation statement: I reviewed the patient's lab results. 06/23/25 09:47 06/23/25 09:47 Labs: Lab Results 06/23/25 Range/Units 09:47 WBC 13.9 H (4.8-10.8) X10*3/uL RBC 4.57 (4.20-5.50) X10*6/uL Hgb 11.8 L (12.0-16.0) g/dl Hct 37.6 (37.0-47.0) % MCV 82.3 (80.0-98.0) fL MCH 25.8 L (27.0-33.0) pg MCHC 31.4 (31.0-35.0) g/dl RDW 15.7 (11.0-16.0) % Plt Count 333 (160-400) X10*3/uL MPV 9.5 (9.4-12.3) fL Immature Gran % (Auto) 0.4 (0.0-0.4) % Neut % (Auto) 78.4 H (45-73) % Lymph % (Auto) 11.4 L (20-40) % Cooper % (Auto) 7.6 (2-11) % Eos % (Auto) 1.6 (0-4) % Baso % (Auto) 0.6 (0-2) % Lymph # (Auto) 1.6 (1.2-4.9) X10*3/uL Cooper # (Auto) 1.1 (0.1-1.2) X10*3/uL Eos # (Auto) 0.2 (0.0-0.4) X10*3/uL Baso # (Auto) 0.1 (0.0-0.2) X10*3/uL Abs Immat Gran (auto) 0.05 H (0.00-0.03) X10*3/uL Absolute Neuts (auto) 10.9 H (2.0-8.3) x10*3/uL Absolute Nucleated RBC 0.000 (0.0-0.012) X10*3/uL Nucleated RBC % (auto) 0.0 (0.0-0.2) /100WBC Sodium 140 (135-145) mmol/L Potassium 3.8 (3.3-5.1) mmol/L Chloride 111 H (96-108) mmol/L Carbon Dioxide 21 L (22-29) mmol/L Anion Gap 12 (12-20) BUN 9 (9-16) mg/dL Creatinine 0.83 (0.5-1.4) mg/dL Estim Creat Clear Calc 107.3 Estimated GFR > 60 Random Glucose 132 H (60-115) mg/dL Calcium 8.6 (8.4-10.2) mg/dL Magnesium 1.8 (1.6-2.6) mg/dL Total Bilirubin 0.5 (0.0-1.0) mg/dL Direct Bilirubin 0.2 (0.0-0.5) mg/dL AST 22 (5-31) U/L ALT 19 (0-31) U/L Alkaline Phosphatase 109 (39-117) U/L Troponin I High Sens < 2.7 (<3.5-17.0) ng/L Total Protein 6.9 (6.5-8.0) g/dL Albumin 4.2 (3.5-5.0) g/dL Lipase 24 (8-78) U/L Beta HCG, Quant < 2 mIU/mL Independent Interpretation I performed an independent interpretation of an: EKG and CT Scan (colitis) Interpretation: Rate: 90 Rhythm: NSR [place]: left, LVH Normal P waves. Normal ALLISON. Normal QRS complex. ST T wave : normal no SET qTC: 445 prior studies: no acute ischemia The study has been interpreted contemporaneously by me. . Radiology Impression Discussion of test interpretation with radiology: I have reviewed the radiologist's reading. External Record Review External record reviewed: Inpatient record and Outpatient record Prescription Management I considered prescription management with: Pain Medication, Antibiotic and Other Medications Administered Discontinued Medications Generic Name Dose Route Start Last Admin Trade Name Magdaleno PRN Reason Stop Dose Admin Iohexol 100 ml 06/23/25 12:14 06/23/25 12:15 Iohexol 350 Mg/Ml 100 Ml Infus..Btl IV 06/23/25 12:15 85 ml ONCE ONE Administration Morphine Sulfate 4 mg 06/23/25 09:21 06/23/25 09:52 Morphine Sulfate 4 Mg/Ml Cartridge IVPUSH 06/23/25 09:22 4 mg ONCE ONE Administration Protocol Ondansetron HCl 4 mg 06/23/25 09:21 06/23/25 09:52 Ondansetron Hcl 4 Mg/2 Ml Vial IVPUSH 06/23/25 09:22 4 mg ONCE ONE Administration Discharge Plan Discharge Clinical Impression: Colitis Patient Disposition: Home, Self-Care Instructions: Colitis (ED) Additional Instructions: labs reassuring wbc count 14 return for worsening pain, fevers, vomiting, bloody stools bland diet and liquid this you can come back at any time LUNG BASES: The lung bases are clear. The heart size is normal. There is a tiny type I hiatus hernia. There are no effusions. LIVER, GALLBLADDER, AND BILIARY TREE: The liver is normal in size, shape, and attenuation. No focal hepatic lesion or biliary ductal dilatation is present. The gallbladder is unremarkable with no evidence of radiopaque gallstones, gallbladder wall thickening, or obvious pericholecystic inflammatory changes. PANCREAS: Unremarkable. SPLEEN: Unremarkable. ADRENAL GLANDS: Unremarkable. KIDNEYS AND URETERS: The kidneys are normal in size, shape, and attenuation. No hydronephrosis, hydroureter, or calculi seen. No perinephric stranding. BLADDER: Unremarkable. GASTROINTESTINAL TRACT: Of note, there is wall thickening and inflammation of the descending colon extending to the level of the sigmoid junction. There is associated or colonic inflammatory change. There is moderate diverticulosis of the sigmoid without evidence of acute diverticulitis. Remainder of the colon appears normal. There is moderate stool burden in the right hemicolon. The rectum images normally. The appendix is normal. Small bowel is normal in caliber and course, without inflammation or wall thickening. The stomach is decompressed. The duodenal sweep appears normal. PERITONEUM: There is no free air or ascites. ABDOMINAL WALL: No significant hernia is appreciated. LYMPH NODES: Normal. VASCULAR: There is mild atheromatous calcification of the aorta and iliac arteries. There is no aneurysm. PELVIC VISCERA: The uterus and adnexa are unremarkable. An IUD is in place and appears appropriately positioned. OSSEOUS STRUCTURES: There is no suspicious lytic or blastic bone lesion. There are mild degenerative changes in both hip joints. There are mild degenerative disc changes in the spine. No SI joint abnormality. CT/CT abdomen pelvis w IV con IMPRESSION: 1. Inflammation or wall thickening of the descending colon consistent with a segmental colitis. This could be infectious or inflammatory. 2. Ancillary findings as discussed in the body of the report. Prescriptions: New hydrocodone-acetaminophen 5-325 mg tablet 1 tab PO Q6H PRN (Reason: pain) Qty: 12 0RF Rx Instructions: partial fill okay; Partial Fill upon patient request. ondansetron 4 mg tablet,disintegrating 4 mg PO Q8H PRN (Reason: nausea and vomiting) Qty: 20 0RF No Action metoprolol succinate 50 mg tablet extended release 24 hr 50 mg PO DAILY Qty: 90 3RF aspirin 81 mg tablet,delayed release (DR/EC) 81 mg PO DAILY Qty: 90 3RF atorvastatin 80 mg tablet 80 mg PO BEDTIME Qty: 90 3RF losartan 25 mg tablet 25 mg PO DAILY Qty: 90 3RF erythromycin 5 mg/gram (0.5 %) ointment 0.5 inch ophthalmic (eye) Q4H Qty: 3.5 0RF Jardiance 25 mg tablet 25 mg PO DAILY insulin glargine-yfgn [Semglee(insulin glarg-yfgn)Pen] 100 unit/mL (3 mL) insulin pen 32 unit subcut BEDTIME multivitamin Tablet 1 tab PO DAILY biotin 10 mg tablet 10 mg PO DAILY Mounjaro 15 mg/0.5 mL pen injector subcut Stand Alone Forms: Work/School Release Print Language: Gabonese
[2025-06-23 09:51] LABS: MANUAL DIFF FLAG NO
[2025-06-23 09:52] LABS: Hematocrit 37.6 % (37.0-47.0); Hemoglobin 11.8 g/dl (12.0-16.0); Imm Gran Abs Auto 0.05 X10*3/uL (0.00-0.03); Imm Gran Pct Auto 0.4 % (0.0-0.4); Lymphocytes Absolute Auto 1.6 X10*3/uL (1.2-4.9); Mean Corpuscular HGB Conc 31.4 g/dl (31.0-35.0); Mean Corpuscular Hemoglobin 25.8 pg (27.0-33.0); Mean Corpuscular Volume 82.3 fL (80.0-98.0); NRBC Abs Auto 0.000 X10*3/uL (0.0-0.012); NRBC Pct Auto 0.0 /100WBC (0.0-0.2); Platelet Count 333 X10*3/uL (160-400); Red Blood Count 4.57 X10*6/uL (4.20-5.50); White Blood Count 13.9 X10*3/uL (4.8-10.8)
[2025-06-23 10:21] LABS: Alanine Aminotransferase 19 U/L (0-31); Albumin Level 4.2 g/dL (3.5-5.0); Alkaline Phosphatase 109 U/L (39-117); Anion Gap 12 (12-20); Aspartate Amino Transferase 22 U/L (5-31); Blood Urea Nitrogen 9 mg/dL (9-16); Calcium 8.6 mg/dL (8.4-10.2); Carbon Dioxide 21 mmol/L (22-29); Chloride 111 mmol/L (96-108); Creatinine Clr Calc Pharmacy 107.3; Estimated Glomerular Filt Rate > 60; Lipase 24 U/L (8-78); Magnesium 1.8 mg/dL (1.6-2.6); Potassium 3.8 mmol/L (3.3-5.1); Sodium 140 mmol/L (135-145); Total Protein 6.9 g/dL (6.5-8.0)
--- OUTSIDE RECORDS SUMMARY | 2025-06-23 10:37 | XMS_ITS | Clinical Summary ---
Author Organization [facility] Address [address] [address] Phone Care Team Providers Care Hand Splitter Name Role Phone Dorothy Gunderson MD Unavailable [phone] Nicholas Ardon MD Unavailable [phone] Nicholas Ardon MD Primary Care Provider [phone] Allergies Active Allergy Reactions Criticality Noted Date [...] Cardiac rehab in one month planned at [facility]. Type 2 diabetes mellitus wit hout complication, [...] for her to have them done at [facility]. Assessment & Plan (08/16/2023 11:22 PM [...] insulin glargine, holding metformin for contrast at [facility]. Gall bladder polyp 07/14/2021 History of renal [...] food. -Continue using albuterol as needed. -Continue hejp-adn-lmflyuj cough suppressant/decongestant as needed. -Monitor for side [...] and has similar side effect profile Will chart picker sample of [place] Assessment & Plan (09/17/2020 [...] 04/17/2025 9:00 AM EDT Office Visit [facility] [address] [place] [address] Dorothy Gunderson MD Type 2 diabetes mellitus [...] Description 10/20/2025 9:40 AM EST Office Visit [facility] [address] [place] [address] Dorothy Gunderson MD [address] [facility], 1st [place] [address] [email or web address] Health Maintenance Due Date Last Done Comments [...] Hemoglobin A1c 7.7(A) 4.2 - 5.6 % [facility] Other 04/17/2025 9:24 AM EDT us Dorothy Gunderson MD POINT OF CARE TEST ORDERABLES F inal Result [facility] [address] [place] [address], [facility] * MAMMOGRAPHY FOR RESULT ENTRY ONLY (07/21/2024 3:50 PM EST) Result [facility] Nicholas Ardon MD HEALTH MAINTENANCE Edited Resu lt - Final * Basic metabolic panel (04/21/2024 11:50 AM EDT) Blood Result [facility] Nicholas Ardno MD LAB BLOOD ORDERABLES Final Res ult EXTERNAL NON-INTERFACED REF LAB * HM DIABETES EYE EXAM FOR RESULT ENTRY ONLY (03/16/2019) Result [facility] Historical Provider HEALTH MAINTENANCE Final Result * HM PAP SMEAR FOR RESULT ENTRY ONLY (09/03/2016) Pap smear NIL Result [facility] Provider HEALTH MAINTENANCE Final Result * Outside Hepatitis C Virus Screening (12/18/2015) Hepatitis C Screening - External Neg Result [facility] Provider LAB BLOOD ORDERABLES Jazzy l Result * OUTSIDE HIV TEST (12/15/2012) HIV - External Neg Result [facility] Provider LAB BLOOD ORDERABLES Jazzy l Result from Last 3 Months or Most Recently Relevant to Health Maintenance Insurance [employer] B[employer]ORS [place] [address] [employer] B[employer]EF[employer]MIN[employer] [facility] BENEFITS ADMIN[employer]RATORS Care Teams Hand Splitter Relationship Specialty Start Date End Date Nicholas Ardon MD [address] [place] [address], [address] [place] [address] PCP - General 09/10/17 Dorothy Gunderson MD [address] [place] [address], [address] [place] [address] Historical LMR Provider 06/23/17 Nicholas Ardon MD [address] [place] [address], [address] [place] [address] Historical LMR Provider 06/23/17 Additional Source Comments The information contained in this document represents components of the legal health record. It is not the complete legal health record.[facility]
--- OUTSIDE RECORDS SUMMARY | 2025-06-23 10:37 | XMS_ITS | Patient Health Record ---
Author [facility] Address [address] [place] [address] Care Team Providers Care Conveyor Man Name Role Phone Nicholas Ardon MD Primary Care Provider Unavail able Jodi Delgadillo Unavailable [phone] Allergies No Known Allergies Reason For Referral [...] Problem Type II diabetes mellitus without complication (295897676) Diabetes mellitus without complication (E11.9) Active confirmed Encounters Encounter Location Date Provider [facility] [address] [address] 10/19/2024 Jodi Delgadillo Plan Of Treatment No Information Insurance Providers Payer Name Payer Address Payer Phone Subscriber Number Group Number Insured Name Patient Relationship to Insured Coverage Start Date Coverage End Date [employer] [address] [address] [place] [address] [id number] Anjel Michelle Self - patient is the insured Medical (General) History Medical History History ICD Code Diabetic Heart disease Chicken pox Surgical History Surgery Date(Month/Year) coronary artery dissection
[2025-06-23 11:09] LABS: Troponin-I High Sensitivity < 2.7 ng/L (<3.5-17.0)
[2025-06-23] MEDS: iohexoL 350 MG/ML 100 ML INFUS..BTL IV (12:15)
[2025-06-23 13:27] VITALS: BP 127/75; PULSE 70; RESP 15; TEMP 36.6; O2SAT 97
[2025-06-23 13:50] VITALS: BP 127/75; PULSE 70; RESP 15; TEMP 36.6; O2SAT 97
== END 2025-06-23 13:50 | disposition home or self-care (01) ==
PROVIDERS: Emergency Provider Emergency Medicine; PCP Pediatrics
DX: K52.9 Noninfective gastroenteritis and colitis, unspecified (principal); R10.20 Pelvic and perineal pain unspecified side; R94.31 Abnormal electrocardiogram [ECG] [EKG]; Z79.899 Other long term (current) drug therapy
CPT/HCPCS: 36415; 74177; 80048; 80076; 83690; 83735; 84484; 84702; 85025; 93005; 96374; 96375; 99284; 99285; J2270; J2405; Q9967

== ENCOUNTER → 2025-06-23 09:15 | Outpatient (BNV) | payer OTHER, SELFPAY ==
[2024-12-27 13:00] VITALS: BP 112/64; BP 140/80; BMI 33.0
== END ==
PROVIDERS: Emergency Provider Emergency Medicine; PCP Pediatrics; Visit Provider Internal Medicine Cardiovascular Disease
DX: R10.9 Unspecified abdominal pain (principal)
CPT/HCPCS: 93010

== ENCOUNTER → 2025-06-23 09:15 | Outpatient (BNV) | payer OTHER, SELFPAY ==
[2024-12-27 13:00] VITALS: BP 112/64; BP 140/80; BMI 33.0
== END ==
PROVIDERS: Emergency Provider Emergency Medicine; PCP Pediatrics; Visit Provider Radiology Diagnostic Radiology
DX: K52.89 Other specified noninfective gastroenteritis and colitis (principal)
CPT/HCPCS: 74177

== ENCOUNTER 2025-07-24 14:21 | Outpatient (REF) | payer OTHER, SELFPAY ==
[2024-12-27 13:00] VITALS: BP 112/64; BP 140/80; BMI 33.0
== END 2025-07-24 14:22 | disposition home or self-care (01) ==
LOC: HO.MAMMO 14:21
PROVIDERS: PCP Pediatrics; Visit Provider Pediatrics
DX: Z12.31 Encounter for screening mammogram for malignant neoplasm of breast (principal)
CPT/HCPCS: 77063; 77067

== ENCOUNTER → 2025-07-24 14:30 | Outpatient (BNV) | payer OTHER, SELFPAY ==
[2024-12-27 13:00] VITALS: BP 112/64; BP 140/80; BMI 33.0
== END ==
PROVIDERS: PCP Pediatrics; Visit Provider Internal Medicine
DX: Z12.31 Encounter for screening mammogram for malignant neoplasm of breast (principal)
CPT/HCPCS: 77063; 77067

== ENCOUNTER 2025-08-17 07:49 | Day surgery (SDC) | payer OTHER, SELFPAY ==
[2024-12-27 13:00] VITALS: BP 112/64; BP 140/80; BMI 33.0
[2025-08-17 08:02] VITALS: BP 117/70; PULSE 83; RESP 16; TEMP 36.2; O2SAT 100; BMI 32.5
--- NOTE | 2025-08-17 08:31 | MHC.SHP ---
Pre-Procedural Eval Section A - 24 Hr Update-Section A only Date of Service: 08/17/25 The patient is an INPATIENT: No The patient has been examined within 24 hours of the surgical procedure. The History & Physical has been completed within 30 days and I have reviewed it.: Yes Section B - Complete if H&P > 30 days Chief Complaint: Carpal tunnel syndrome, left upper limb Allergies: Allergies Allergy/AdvReac Type Severity Reaction Status Date / Time No Known Allergies (No Known Allergy Verified 06/23/25 09:08 Allergies*) Plan I have reviewed the history and physical and performed a pertinent physical examination on my patient. No changes have occurred unless specified. Time Spent With Patient Time: Total time managing care of this patient today ____ minutes.
--- NOTE | 2025-08-17 08:32 | MHC.SHP ---
Pre-Procedural Eval Section A - 24 Hr Update-Section A only Date of Service: 08/17/25 The patient is an INPATIENT: No Changes since office visit: No Cold of Flu in the past 2 weeks, No New Medical Problems, No Changes in Medication and No Patient answered all questions The patient has been examined within 24 hours of the surgical procedure. The History & Physical has been completed within 30 days and I have reviewed it.: Yes Section B - Complete if H&P > 30 days Chief Complaint: Carpal tunnel syndrome, left upper limb Allergies: Allergies Allergy/AdvReac Type Severity Reaction Status Date / Time No Known Allergies (No Known Allergy Verified 06/23/25 09:08 Allergies*) Plan Diagnosis/Plan: Unchanged I have reviewed the history and physical and performed a pertinent physical examination on my patient. No changes have occurred unless specified. Time Spent With Patient Time: Total time managing care of this patient today ____ minutes.
--- NOTE | 2025-08-17 08:33 | W.PM.OPN ---
Operative Note Operative Note Date of Service: 08/17/25 Narrative: Preop diagnosis: 1. Left Carpal tunnel syndrome Postop diagnosis: same Procedure: 1. Left Carpal tunnel release Surgeon: Samantha Slater MD Ammonia Technician: Darrell VANN Anesthesia: local block using 1% lidocaine with epinephrine Findings: Thickened transverse carpal ligament. EBL: Less than 5 mL Specimens: None Complications: None Disposition: Brought to recovery room in stable condition Plan: Follow-up for 10-14 days for wound check and suture removal Indications: The patient is 45 years old, with left carpal tunnel syndrome that has been unresponsive to nonoperative management. The risks and benefits of operative treatment including but not limited to risk of damage to blood vessels, nerves, tendons, infection, persistent pain, persistent symptoms, or possible need for additional surgery were discussed with the patient and the patient wishes to proceed with surgery. Procedure: Once consent was obtained a local block was performed using a combination of 1% lidocaine with epinephrine. The patient was then brought back to the operating suite and placed on the operative table in supine position. The left upper extremity was prepped and draped in a standard surgical fashion. Once assured that we had a good block, a 2.0 cm longitudinal incision was made centered over the carpal tunnel. The incision was made through the skin to the subcutaneous tissues using a #15 blade. Dissection was made down to the level of the transverse carpal ligament with care being taken to protect the palmar cutaneous nerve. Once the transverse carpal ligament was clearly visualized, a longitudinal incision was made in the transverse carpal ligament 1st using a #15 blade, then using tenotomy scissors under direct visualization. Care was taken to look for and protect the motor branch of the median nerve when seen in this area. Once satisfied with our carpal tunnel release the wound was copiously irrigated with normal saline and hemostasis was obtained with a brief period of local pressure. The skin edges were reapproximated with some 5.0 nylon suture material and a sterile dressing was applied. The patient appears to have tolerated the procedure well and with no complications. All digits were well vascularized at the conclusion of the case.
--- NOTE | 2025-08-17 10:31 | PC.NURSE ---
VITAL SIGNS; 118/63, 83, 16, 98% RA (post op vital signs)
== END 2025-08-17 10:32 | disposition home or self-care (01) ==
PROVIDERS: PCP Pediatrics; Visit Provider Orthopaedic Surgery
PROC: (CPT 64721; principal; 2025-08-17 09:30)
DX: G56.02 Carpal tunnel syndrome, left upper limb (principal); R20.0 Anesthesia of skin; R20.2 Paresthesia of skin; J45.909 Unspecified asthma, uncomplicated; E11.9 Type 2 diabetes mellitus without complications; Z98.890 Other specified postprocedural states
CPT/HCPCS: 64721; J0165; J2003

== ENCOUNTER → 2025-08-17 07:49 | Outpatient (BNV) | payer OTHER, SELFPAY ==
[2024-12-27 13:00] VITALS: BP 112/64; BP 140/80; BMI 33.0
== END ==
PROVIDERS: PCP Pediatrics; Visit Provider Orthopaedic Surgery
DX: G56.02 Carpal tunnel syndrome, left upper limb (principal)
CPT/HCPCS: 64721

== ENCOUNTER 2025-08-28 09:26 | Outpatient (AMB) | payer OTHER, SELFPAY ==
[2024-12-27 13:00] VITALS: BP 112/64; BP 140/80; BMI 33.0
[2025-08-28 09:45] VITALS: BMI 32.5
--- NOTE | 2025-08-28 09:45 | A.OFFVIS_ITS ---
Vital Signs 08/28/25 09:45 Height 5 ft 9 in Weight 220 lb BMI 32.5 Intake Visit Reasons: PO LT CTR 08/17/25 AR Intake Note: Michelle is a 45 year old right hand dominant female who presents today for a Post-Operative Visit status post Left Carpal Tunnel Release, DOS: 08/17/[address] Slater. Patient reports she is doing well. Denies numbness, tingling, finger locking. Patient is not taking any pain medications at this time. Sutures removed and steri strips applied. Patient interested on right carpal tunnel release. Allergies No Known Allergies (No Known Allergies*) Allergy (Verified 08/28/25 09:46) HPI HPI PO LT CTR 08/17/25 AR: Details: Michelle is a 45 year old right hand dominant female who presents today for a Post-Operative Visit status post Left Carpal Tunnel Release, DOS: 08/17/[address] Slater. Patient reports she is doing well. Denies numbness, tingling, finger locking. Patient is not taking any pain medications at this time. Sutures removed and steri strips applied. Patient interested on right carpal tunnel rel ease, as well as right ring finger trigger release, as she has had previous injections for this and they have brought her no relief. Patient reports that right carpal tunnel numbness and tingling is intermittent, daily, and worse at night. [facility]LY [facility] Medical History Asthma Diabetes Surgical History Hx of hand surgery Hx of cardiac cath Family History Father CAD (coronary artery disease) Mother No problems noted. Social History Alcohol intake: never Patient Tobacco Use Status: Never used Tobacco Current occupational status: employed Current occupation: C - OT Review of Systems Const All systems reviewed & are unremarkable except as noted in HPI and below Physical Exam Vital Signs: BMI result Body Mass Index 32.5 Extrem Other: Patient is alert, oriented, and in no acute distress. Neuro: Normal sensation of the tips of all digits of the bilateral hands at this time Vascular: Cap refill brisk Pain: No tenderness to palpation about the incision site on volar left wrist No pain with range of motion of the left hand There is pain associated with locking and catching of the right ring finger ROM: Visible and palpable locking and catching of the right ring finger in a flexed position Patient is able to flex and extend all other digits of bilateral hands fully and without difficulty Skin: Well approximated and well healing incision site noted on volar left wrist No lacerations or abrasions. General: No ecchymosis, erythema, or evidence of infection. Psych: Appears grossly normal Affect normal Attitude cooperative Assessment & Plan Assessment & Plan (1) Carpal tunnel syndrome of left wrist: Code(s): G56.02 - Carpal tunnel syndrome, left upper limb Category: Medical (2) Carpal tunnel syndrome of right wrist: Code(s): G56.01 - Carpal tunnel syndrome, right upper limb Category: Medical (3) Trigger finger, right ring finger: Code(s): M65.341 - Trigger finger, right ring finger Category: Medical Plan 1. Status post left carpal tunnel release DOS 08/17/2025 Patient appears to be recovering well postoperatively Patient is educated about the typical recovery course No under water times one-week, 2 lb weight limit x2 weeks Patient appears to be recovering very well, and requires no further acute follow-up with us postoperatively Patient is educated and worrisome signs and symptoms, and should call us if they experience any of these, including but not limited to redness, swelling, increased pain, and discharge Patient understands this and is amenable to this plan 2. Right carpal tunnel syndrome Symptoms intermittent, daily, worse at night 3. Right ring finger trigger release I educated the patient about the condition. I discussed both operative and nonoperative treatment options. The patient would like to proceed with surgery. The risks and benefits of operative treatment were discussed with the patient and the patient wishes to proceed with surgery. These risks include, but are not limited to, risk of damage to blood vessels, nerves, tendons, infection, recurrence, incomplete relief of preoperative symptoms, persistent pain, possible need for further surgery, and the risks associated with regional blocks and/or anesthesia. Plan is to take the patient to the operating room at some point in the next few weeks for the following procedures: 1. Right carpal tunnel release under local 2. Right ring finger trigger release under local All of the preoperative paperwork including the consent was discussed today. All of the patient's questions were answered in the clinic today. The patient understands that they will be in contact with our surgical services coordinator to discuss scheduling their procedure. Patient reports diabetes, last A1c approximately 7 Denies blood thinners, asthma, heart issues, lung issues, kidney issues, or current smoking. Coding Level of Care Code Est Pt Level 4 (03365) Diagnoses Carpal tunnel syndrome of left wrist G56.02 Carpal tunnel syndrome of right wrist G56.01 Trigger finger, right ring finger M65.341
--- OUTSIDE RECORDS SUMMARY | 2025-08-28 10:38 | XMS_ITS | Clinical Summary ---
Author Organization [facility] Address [address] [place] [address] Phone Care Team Providers Care Home Health Clinical Supervisor Name Role Phone Dorothy Gunderson MD Unavailable [phone] Nicholas Ardon MD Unavailable Nicholas Ardon MD Primary Care Provider [phone] Allergies Active Allergy Reactions Criticality Noted Date Comments Dulaglutide 09/17/2020 GI distress Medications mupirocin (BACTROBAN) 2 % ointmentIndicat ions:Impetigo Apply topically 3 (three) times a day. 22 g 07/11/20 21 Active aspirin 81 MG EC tablet Take 81 mg by mouth. 05/15/20 23 Active atorvastatin (LIPITOR) 80 MG tablet Take 80 mg by mouth nightly at bedtime. 05/15/20 23 Active losartan (COZAAR) 25 MG tablet Take 1 tablet by mouth every morning. 05/15/20 23 Active metoprolol succinate (TOPROL-XL) 50 MG 24 hr tablet Take 50 mg by mouth. 05/15/20 23 Active FREESTYLE LITE METER meter kitIndications: Type 2 diabetes mellitus without complication, without long-term current use of insulin Use as instructed to test blood sugar daily 1 each 08/14/20 23 Active FREESTYLE LITE Strp stripsIndicatio ns:Type 2 diabetes mellitus without complication, without long-term current use of insulin Inject 1 each under the skin 3 (three) times a day before meals. 300 strip 3 08/18/20 23 Active temazepam (RESTORIL) 7.5 MG capsuleIndicati ons:Adjustment insomnia Take 1 capsule (7.5 mg total) by mouth nightly at bedtime as needed for anxiety (insomnia). 15 capsule 04/15/20 24 Active Additional Information Patient not taking.Reported on 04/17/2025 albuterol (PROAIR HFA) 90 mcg/actuation inhalerIndicati ons:Mild intermittent asthma without complication Inhale 2 puffs into the lungs every 4 (four) hours as needed for wheezing. 20.1 g 1 04/15/20 24 Active MOUNJARO 15 mg/0.5 mL PnIj subcutaneous penIndications: Type 2 diabetes mellitus without complication, without long-term current use of insulin Inject 0.5 mL (15 mg total) under the skin every 7 days. 6 mL 3 10/06/19 25 Active empagliflozin (JARDIANCE) 25 mg tabletIndicatio ns:Type 2 diabetes mellitus without complication, without long-term current use of insulin TAKE 1 TABLET BY MOUTH EVERY DAY 90 tablet 1 02/15/20 25 Active LANTUS SOLOSTAR U-100 INSULIN 100 unit/mL (3 mL) InPn injection penIndications: Type 2 diabetes mellitus without complication, without long-term current use of insulin INJECT 32 UNITS UNDER THE SKIN DAILY 30 mL 2 07/14/20 25 Active FROILAN PEN NEEDLE 32 gauge x 5/32 NdleIndications :Type 2 diabetes mellitus without complication, without long-term current use of insulin USE TO INJECT INSULIN ONCE DAILY 100 each 3 08/14/20 25 Active BD FROILAN 2ND GEN PEN NEEDLE 32 gauge x 5/32 NdleIndications :Type 2 diabetes mellitus without complication, without long-term current use of insulin Use to inject insulin once daily 100 each 3 07/12/20 24 025 Discontinued Active Problems Problem Noted Date Diagnosed Date [...] Cardiac rehab in one month planned at [facility]. Type 2 diabetes mellitus wit hout complication, [...] for her to have them done at [facility]. Assessment & Plan (08/16/2023 11:22 PM EST): [...] insulin glargine, holding metformin for contrast at [facility]. Gall bladder polyp 07/14/2021 History [...] food. -Continue using albuterol as needed. -Continue cajb-dan-angbjyo cough suppressant/decongestant as needed. -Monitor for side [...] and has similar side effect profile Will hand picker sample of [place] Assessment & Plan [...] Encounters Date Type Department Care Team Description 08/14/2025 Refill [facility] Diabetes [facility] [address] [place] [address] Dorothy Gunderson MD Medication Refill 07/28/2025 Orders Only [facility] [address] [place] [address] ProviderAlek MD 07/14/2025 Refill [facility] Diabetes [facility] [address] [place] [address] Dorothy Gunderson MD Medication Refill 06/26/2025 Orders Only [facility] [address] [place] [address] ProviderAlek MD from Last 3 Months Immunizations Immunization Administration [...] Description 10/20/2025 9:40 AM EST Office Visit [facility] [address] [place] [address] Dorothy Gunderson MD [address] [facility] [place] [address] [email or web address] Health Maintenance Due Date Last Done Comments PNEUMOCOCCAL VACCINES (0-49 years) (2 of 2 - PPSV23, PCV20, or PCV21) 03/30/2019 02/02/2019 DIABETIC EYE EXAM 03/16/2020 03/16/2019 [...] PRESSURE 10/18/2025 04/17/2025 HEMOGLOBIN A1C 10/18/2025 04/17/2025, 12/04/2023, 05/01/2023, Additional history exists Adult Td,Tdap Booster 06/26/2026 06/26/2016 MAMMOGRAM 07/24/2027 07/24/2025, 07/08, 07/20/2023, Additional history exists HIV ONE-TIME SCREENING (18-65 YEARS) Completed 12/15/2012 [...] Procedure Name Priority Date/Time Associated Diagnosis Comments MAMMOGRAPHY Routine 07/24/2025 4:[address] IMAGING REPORT ONLY Routine 2025 1:55 PM EDT POCT HEMOGLOBIN A1C Routine 04/17/2025 9 :24 AM EDT Type 2 diabetes mellitus without complication, without long-term current use of insulin BASIC METABOLIC PANEL (BMP) Routine 04/21/2024 11:50 AM EDT Type 2 [...] * HM MAMMOGRAPHY FOR RESULT ENTRY ONLY (07/24/2025 4:48 PM EST) Result [facility] Historical Connie [facility] Edited Result - Final * Outside CT Imaging Report Only (2025 1:55 PM EDT) Result [facility] Historical Connie MCLEAN IMG CT Edited Re sult - Final * (ABNORMAL) POCT Hemoglobin A1c (04/17/2025 9:24 AM EDT) Pathologist [facility] Hemoglobin A1c 7.7(A) 4.2 - 5.6 % [facility] Other 04/17/2025 9:24 AM EDT Result [facility] Dorothy Gunderson MD LAB POCT ENTER/EDIT ORDERABLES Final Result Performing Organization Address [facility]/ZIP Co de Phone Number [facility] [address] [place], [place] [address] * Basic metabolic panel (04/21/2024 11:50 AM EDT) Blood Result [facility] Nicholas Ardon MD LAB BLOOD BKR ORDERABLES Final Result Performing Organization Address City/[facility]/ZIP Co de Phone Number EXTERNAL NON-INTERFACED REF LAB * DIABETES EYE EXAM FOR RESULT ENTRY ONLY (03/16/2019) Result [facility] Historical Connie [facility] Final Result * HM PAP SMEAR FOR RESULT ENTRY ONLY (09/03/2016) HM Pap smear NIL Result [facility] Historical Connie [facility] Final Result * Outside Hepatitis C Virus Screening (12/18/2015) Hepatitis C Screening - External Neg Result [facility] Alek Rosales MD LAB BLOOD ORDERABLES Jazzy l Result * OUTSIDE HIV TEST (12/15/2012) HIV - External Neg Historical Provider LAB BLOOD ORDERABLES Jazzy l Result from Last 3 Months or Most Recently Relevant to Health Maintenance Insurance [employer] Member Subscriber Plan / Payer (Ef fective 2019-Present) Name:Michelle Hobbs Relation to Subscriber:Self Name:Michelle Hobbs Payer ID:[id number] (NAIC) Type:PPO Address: [place] [phone] [employer] Member Subscriber Plan / Payer (Ef fective 2019-Present) Name:Michelle Hobbs Relation to Subscriber:Self Name:Michelle Hobbs Payer ID:[id number] (NAIC) Type:PPO Address: [place] [phone] [employer]MIN[employer] [facility] ADMINISTRATORS [employer] BENEFITS ADMINISTRATORS [employer] Care Teams Home Health Clinical Supervisor Relationship Specialty Start Date End Date Nicholas Ardon MD [address] [place] [address], [address] [place] [address] PCP - General 09/10/17 Dorothy Gunderson MD [address] [facility] [place] [address] [email or web address] Historical LMR Provider 06/23/17 Nicholas Ardon MD [address] [facility] [place] [address] [email or web address] Historical LMR Provider 06/23/17 Additional Source Comments The information contained in this document represents components of the legal health record. It is not the complete legal health record.[facility]
--- OUTSIDE RECORDS SUMMARY | 2025-08-28 10:38 | XMS_ITS | Encounter Summary ---
Author Organization [facility] Address [address] [place] [address] Phone Care Team Providers Care Regulatory Intern Name Role Phone Dorothy Gunderson MD Unavailable [phone] Nicholas Ardon MD Unavailable [phone] Nicholas Ardon MD Primary Care Provider [phone] Encounter Details Date Type Department Care Team (Late st Contact Info) Description 07/28/2025 Orders Only [facility] [address] [place] [address] Provider, MD Alek [address] [place], [place] [id number] Social History Tobacco Use Types Packs/Day Years Used Date Smoking Tobacco: Never Smokeless Tobacco: Never Alcohol Use Standard Drinks/Week Comments Not Currently [...] file Not on file Not on file documented as of this encounter Plan of Treatment Upcoming Encounters Date Type Department Care Team (Late st Contact Info) Description 10/20/2025 9:40 AM EST Office Visit [facility] [address] [place] [address] Dorothy Gunderson MD [address] [address] [email or web address] documented as of this encounter Procedures Procedure Name Priority Date/Time Associated Diagnosis Comments HM MAMMOGRAPHY Routine 07/24/2025 4:48 PM EST documented in this encounter Results * HM MAMMOGRAPHY FOR RESULT ENTRY ONLY (07/24/2025 4:48 PM EST) us Historical Provider HEALTH MAINTENANCE Edited Result - Final documented in this encounter Visit Diagnoses Not on filedocumented in this encounter Additional Health Concerns Assessment Noted Time PHQ-2 Depression Total Score: 0 05/11/20 20 1:31 PM EDT documented as of this encounter Care Teams Regulatory Intern Relationship Specialty Start Date End Date Nicholas Ardon MD [address] [place] [address], [address] [address] PCP - General 09/10/17 Dorothy Gunderson MD [address] [place] [address] Historical LMR Provider 06/23/17 Nicholas Ardon MD [address] [place] [address], [address] [address] Historical LMR Provider 06/23/17 documented as of this encounter Additional Source Comments The information contained in this document represents components of the legal health record. It is not the complete legal health record.[facility]
--- OUTSIDE RECORDS SUMMARY | 2025-08-28 10:38 | XMS_ITS | Patient Health Record ---
[facility] Address [address] [place] [address] Care Team Providers Care Marketing Services Rep Name Role Phone Nicholas Ardon MD Primary Care Provider Unavail able Jodi Delgadillo Unavailable [phone] Allergies No Known Allergies Reason For Referral [...] Problem Type II diabetes mellitus without complication ([id number]) Diabetes mellitus without complication (E11.9) Active confirmed Encounters Encounter Location Date Provider [facility] [address] [address] 10/19/2024 Jodi Delgadillo Plan Of Treatment No Information Insurance Providers Payer Name Payer Address Payer Phone Subscriber Number Group Number Insured Name Patient Relationship to Insured Coverage Start Date Coverage End Date [employer] Benefits [address] [address] [place] [address] [id number] Anjel Michelle Self - patient is the insured Medical (General) History Medical History History ICD Code Diabetic Heart disease Chicken pox Surgical History Surgery Date(Month/Year) coronary artery dissection
== END 2025-08-28 10:10 | disposition home or self-care (01) ==
LOC: HO.HOS 09:26
PROVIDERS: PCP Pediatrics
DX: G56.03 Carpal tunnel syndrome, bilateral upper limbs (principal); M65.341 Trigger finger, right ring finger
CPT/HCPCS: 99214